=== PATIENT | male | born 1935 | race Caucasian/White ===

== ENCOUNTER → 2017-12-06 14:06 | Outpatient (CLI) | payer MEDICARE, BC, SELFPAY ==
--- NOTE | 2017-12-06 | DI.MRI.S_ITS ---
PROCEDURE: MR CERVICAL SPINE WO CON INDICATIONS: SPINAL STENOSIS LUMBAR REGION/POLYNEUROPATHY TECHNIQUE: Noncontrast sagittal T1 spin echo and T2 fast spin echo, sagittal STIR, foraminal oblique sagittal T2 fast spin echo, and axial gradient echo or T2 fast spin echo through the cervical spine. COMPARISON: None. FINDINGS: Image quality: Excellent. Alignment and Curvature: Trace retrolisthesis of C2 on C3 and C3 on C4. Trace anterolisthesis of C6 on C7. Bone Marrow: Diffuse endplate degenerative signal changes and spurring. Chronic osseous fusion of the C1 and C2 vertebral bodies Spinal Cord: Visualized spinal cord has normal size and signal. No cerebellar tonsillar herniation. Paraspinous Soft Tissues: No paravertebral masses. Prevertebral soft tissues are normal in thickness. C2-C3: Bilateral uncovertebral arthropathy and posterior intervening disc osteophyte complex which is mildly asymmetric, right greater than left. Bilateral facet arthropathy is present. Moderate central canal narrowing. Severe bilateral foraminal stenosis. C3-C4: Bilateral uncovertebral arthropathy and posterior intervening disc osteophyte complex, which is asymmetric, right greater than left. Moderate right-sided canal narrowing. Severe bilateral foraminal stenoses, left greater than right. C4-C5: Bilateral uncovertebral arthropathy and posterior intervening disc osteophyte complex, and bilateral facet arthropathy. Moderate central canal narrowing. Severe bilateral foraminal stenoses C5-C6: Bilateral uncovertebral arthropathy and posterior intervening disc osteophyte complex, and bilateral facet disease. Mild to moderate central canal narrowing. Severe bilateral foraminal stenoses. C6-C7: Bilateral uncovertebral arthropathy and posterior intervening disc osteophyte complex, and bilateral facet arthropathy. Minimal central canal narrowing. Mild bilateral foraminal narrowing, left greater than right. C7-T1: No definite canal or foraminal stenosis. IMPRESSION: Multilevel cervical degeneration with moderate canal stenosis at C2-C3, C3-C4 and C4-C5 as above. Diffuse bilateral foraminal stenoses, severe at multiple levels including C2-C3, C3-C4, C4-C5 and C5-C6. Dictated by: Vern Schumacher M.D. on 12/06/2017 at 15:16 Approved by: Vern Schumacher M.D. on 12/06/2017 at 15:33
== END ==
PROVIDERS: PCP Family Medicine; Visit Provider Neurological Surgery
DX: M50.31 Other cervical disc degeneration, high cervical region (principal); M48.02 Spinal stenosis, cervical region; M48.062 Spinal stenosis, lumbar region with neurogenic claudication; G62.9 Polyneuropathy, unspecified
CPT/HCPCS: 72141

== ENCOUNTER → 2018-03-28 08:38 | Outpatient (CLI) | payer MEDICARE, BC, SELFPAY ==
[2018-03-28 09:36] LABS: Alanine Aminotransferase 32 IU/L (21-72); Albumin 4.8 g/dL (3.5-5.0); Albumin Globulin Ratio 1.5 (1.0-2.8); Alkaline Phosphatase 90 U/L (38-126); Aspartate Aminotransferase 24 IU/L (17-59); BUN Creatinine Ratio 12.3 (6-22); Bilirubin Total 0.8 mg/dL (0.2-1.3); Blood Urea Nitrogen 16 mg/dL (9-20); Calcium 9.7 mg/dL (8.4-10.2); Carbon Dioxide 27 mmol/L (22-32); Chloride 104 mmol/L (98-107); Cholesterol 156 mg/dL (140-199); Estimated Glomerular Filt Rate 52.9 mL/min (>60); Globulin 3.3 g/dL (1.7-4.1); Glucose 115 mg/dL (80-110); HDL Cholesterol 27 mg/dL (40-60); HEMOLYSIS < 15 (0-50); LDL Cholesterol Calculated 91 mg/dL (<100); Potassium 4.3 mmol/L (3.4-5.1); Sodium 142 mmol/L (137-145); Total Protein 8.1 g/dL (6.3-8.2); Triglycerides 192 mg/dL (35-150)
[2018-03-28 10:00] LABS: Thyroid Stimulating Hormone 2.01 uIU/mL (0.47-4.68)
== END ==
PROVIDERS: PCP Family Medicine; Visit Provider Family Medicine
DX: E78.5 Hyperlipidemia, unspecified (principal); I10 Essential (primary) hypertension
CPT/HCPCS: 36415; 80053; 80061; 84443

== ENCOUNTER → 2018-04-11 12:02 | Outpatient (CLI) | payer MEDICARE, BC, SELFPAY ==
--- NOTE | 2018-04-11 | DI.US.S_ITS ---
PROCEDURE: US ARTERIAL DUPLEX LE BI INDICATIONS: PERIPHERAL ARTERY DISEASE CHEST DISCOMFORT TECHNIQUE: Color and pulse Doppler interrogation was performed of both lower extremity arterial systems, with image documentation. COMPARISON: None. FINDINGS: Right lower extremity: Common femoral artery: 111 cm/sec, with triphasic flow. Deep femoral artery: 55cm/sec, with biphasic flow. Proximal superficial femoral artery: 82 cm/sec, with triphasic flow. Mid superficial femoral artery: 85 cm/sec, with triphasic flow. Distal superficial femoral artery: 74 cm/sec, with triphasic flow. Popliteal artery: 101 cm/sec, with triphasic flow. Posterior tibial artery: 87 cm/sec, with biphasic flow. Anterior tibial artery/dorsalis pedis: 76 cm/sec, with biphasic flow. Riggs-scale imaging description: Minimal scattered plaque. Left lower extremity: Common femoral artery: 105 cm/sec, with triphasic flow. Deep femoral artery: 74 cm/sec, with biphasic flow. Proximal superficial femoral artery: 109 cm/sec, with triphasic flow. Mid superficial femoral artery: 74 cm/sec, with triphasic flow. Distal superficial femoral artery: 77 cm/sec, with triphasic flow. Popliteal artery: 116 cm/sec, with triphasic flow. Posterior tibial artery: 19 cm/sec, with biphasic flow. Anterior tibial artery/dorsalis pedis: 91 cm/sec, with biphasic flow. Riggs-scale imaging description: Minimal scattered plaque. IMPRESSION: Minimal scattered plaque and no hemodynamically significant peripheral arterial stenosis. Dictated by: Lb Mcarthur [facility] Interpreted: Evelio Davis MD on 04/11/2018 at 14:53 Approved by: Evelio Davis M.D. on 04/12/2018 at 4:57
--- NOTE | 2018-04-11 | DI.ECHO.S_ITS ---
[facility] +---------+ : : [address] : : : : [id number] : : : : Phone: [phone]+ Echocardiogram Report + + :Name: RONDA MILLER Study Date: 04/11/2018 Height: 68 in : :[facility] Weight: 224 lb : : Gender: Male BSA: 2.1 m2 : :: 1935 Age: 83 yrs BP: 138/72 mmHg: :Reason For Study: Chest pain : : Performed By: Dorys Leonardo : :Referring: RONAN HAYES : + + Interpretation Summary The left ventricle is mildly dilated. The ejection fraction is estimated to be 50-55%. There is mid inferior wall hypokinesis. There is apical inferior wall hypokinesis. The right ventricle is grossly normal size. The right ventricular systolic function is normal. There is mild to moderate tricuspid regurgitation. The right ventricular systolic pressure is estimated to be at least 34 mmHg based on an estimated right atrial pressure of 3 mm Hg. The ascending aorta is mildly enlarged. Procedure: A two-dimensional transthoracic echocardiogram with color flow and Doppler was performed. The study quality was technically adequate. There is no prior echocardiogram noted for this patient. The patient was in normal sinus rhythm during the exam. Left Ventricle: The left ventricle is mildly dilated. There is normal left ventricular wall thickness. There is no thrombus. The ejection fraction is estimated to be 50-55%. There is mid inferior wall hypokinesis. There is apical inferior wall hypokinesis. Diastolic parameters suggest a relaxation abnormality of the left ventricle, consistent with probable normal filling pressures. Right Ventricle: The right ventricle is grossly normal size. The right ventricular systolic function is normal. Atria: The left atrium is mildly dilated. The right atrium is mildly dilated. The interatrial septum is intact with no evidence for an atrial septal defect. Mitral Valve: There is mild mitral annular calcification. There is mild mitral regurgitation. Aortic Valve: The aortic valve is trileaflet. The aortic valve opens well. The aortic valve is slightly calcified. There is no aortic valve stenosis. There is trace aortic regurgitation. Tricuspid Valve: The tricuspid valve is normal. There is mild to moderate tricuspid regurgitation. The right ventricular systolic pressure is estimated to be at least 34 mmHg based on an estimated right atrial pressure of 3 mm Hg. Pulmonic Valve: The pulmonic valve leaflets are thin and pliable; valve motion is normal. There is trace pulmonic regurgitation. Great Vessels: The aortic root is borderline dilated. The ascending aorta is mildly enlarged. The aortic arch is normal in size. The IVC is of normal diameter and collapses greater than 50% with a sniff. This suggests a low right atrial pressure of 3 mm Hg. Pericardium/ Pleura There is no pericardial effusion. There is no pleural effusion. MMode/2D Measurements & Calculations LVIDd: 6.0 cm Ao root diam: 3.8 cm LVIDs: 4.1 cm Aortic Jxn: 2.9 cm FS: 31.5 % asc Aorta Diam: 3.8 cm IVSd: 1.0 cm Ao Arch Diam (Prox Trans): 2.4 cm LVPWd: 1.1 cm LV zhao. diameter/BSA (cm/m^2): 2.8 LV sys. diameter/BSA (cm/m^2): 1.9 LA dimension: 4.5 cm RA long axis: 5.3 cm LA A2 area: 25.2 cm2 RA area: 22.5 cm2 LA A4 area: 21.3 cm2 RA vol: 80.2 ml LA length (vol): 5.7 cm RA : 37.4 ml/m2 LA vol: 80.6 ml RVDd major: 5.8 cm LA vol index: 37.6 ml/m2 RVD1 (basal): 4.3 cm RVD2 (mid): 3.7 cm Doppler Measurements & Calculations Ao V2 max: 148.1 cm/sec MV E max kavon: 84.9 cm/sec Ao V2 mean: 99.5 cm/sec MV A max kavon: 115.1 cm/sec Ao max P.8 mmHg MV E/A: 0.74 Ao mean P.5 mmHg Med Peak E' Kavon: 5.8 cm/sec Ao V2 VTI: 35.3 cm E/E' med: 14.7 Lat Peak E' Kavon: 6.8 cm/sec E/E' lat: 12.4 E/e' average: 13.5 MV dec time: 0.34 sec MV P1/2t: 101.3 msec MR ERO: 0.16 cm2 TR max kavon: 277.5 cm/sec MV P1/2t max kavon: 85.2 cm/sec TR max P.8 mmHg MVA(P1/2t): 2.2 cm2 PA V2 max: 82.7 cm/sec PA V2 mean: 49.7 cm/sec PA mean P.2 mmHg PA Accel Time: 0.11 sec MR flow rate: 87.4 cm3/sec MR PISA radius: 0.60 cm Reading Physician:CESARIO
--- NOTE | 2018-04-14 09:30 | PM.TREADMILL ---
Cardiac Stress Test Report Referral & Results Date Patient Seen: 04/14/18 Requesting provider: Armen Diamond Indication: Coronary disease Rest ECG: Unremarkable Procedure Note: Today following both written and verbal informed consent the patient was exercised according to a standard Alfredo protocol patient went for a total of for minutes 1 sec achieving a maximum heart rate of 132 maximum systolic blood pressure of 160. This is approximately 7.0 METS. Exercise was terminated at this point because of targets her med and patient was unable to continue. Patient was also given Cardiolite through a previously started Hep-Lock IV by the landscape management technician approximately 1 minute prior to the cessation of exercise. No ST T segment changes. Occasional to rare PAC Functional aerobic impairment rated 20% on the sedentary scale Impression: No ECG evidence of ischemia Please see perfusion imaging report as well Please note: Actual ECG tracings can be found in the PACS system.
--- NOTE | 2018-04-14 14:47 | DI.NM.S_ITS ---
DATE OF SERVICE: 04/11/2018 PROCEDURE: Two-day nuclear treadmill stress test. REASON FOR STUDY: Chest pain. RADIOISOTOPES: 26.2 mCi of Technetium-99m used at rest and 24.6 mCi Technetium- 99m used as a stress dose. SYMPTOMS DURING THE STRESS TEST: Patient had no chest pain during the stress test. Study ended due to fatigue. ECG: Resting ECG shows sinus rhythm with left axis deviation and no ST-T changes. With treadmill stress, there were no diagnostic ECG changes to suggest ischemia. Rare PVCs noted during the stress test. PERFUSION IMAGES: There is a moderately severe fixed inferior wall defect that improves significantly with prone imaging, suggesting diaphragmatic attenuation artifact than true ischemia or infarct. However, old subendocardial infarction cannot be excluded comprehensively. GATED IMAGING: Patient's LVEF is 56% with normal wall motion and normal LV volumes. No TID noted visually, and the ratio is 0.86 (normal). CONCLUSIONS: 1. Probably normal study. 2. Probably normal perfusion images. There is a moderately intense fixed inferior wall defect that improves significantly with prone imaging, suggesting diaphragmatic attenuation. However, old subendocardial inferior myocardial infarction (VT) cannot be definitively excluded. 3. Normal left ventricular size, wall motion, and systolic function (LVEF post stress 56%). 4. No ECG evidence of ischemia. 5. No angina during the study. 6. Mildly reduced exercise tolerance (7.0 METs, CASTRO +20%). Appropriate blood pressure response with exercise. Target heart rate achieved. 7. Compared to the prior nuclear stress test done, 01/25/2017, no significant change based on the report. Diallo Herrera - NEAL/nellie/karly doc#: [id number]/job#: [id number] dd: 04/14/2018 12:50:00 dt: 04/14/2018 14:38:00 DICTATING MD/COPIES TO: Olive Hutchison MD COPIES MNE: NOREEN
== END ==
PROVIDERS: PCP Family Medicine; Visit Provider Internal Medicine Cardiovascular Disease
DX: R07.9 Chest pain, unspecified (principal); I08.1 Rheumatic disorders of both mitral and tricuspid valves; I77.810 Thoracic aortic ectasia; I73.9 Peripheral vascular disease, unspecified
CPT/HCPCS: 78452; 93016; 93017; 93018; 93306; 93925; A9502

== ENCOUNTER → 2018-11-17 12:37 | Outpatient (CLI) | payer MEDICARE, BC, SELFPAY ==
[2018-11-17 13:54] LABS: Magnesium 1.9 mg/dL (1.6-2.3)
== END ==
PROVIDERS: PCP Family Medicine; Visit Provider Internal Medicine Cardiovascular Disease
DX: I47.2 Ventricular tachycardia (principal)
CPT/HCPCS: 36415; 83735

== ENCOUNTER → 2019-03-30 10:06 | Outpatient (CLI) | payer MEDICARE, BC, SELFPAY ==
[2019-03-30 11:13] LABS: BUN Creatinine Ratio 19.1 (6-22); Blood Urea Nitrogen 21 mg/dL (9-20); Calcium 9.9 mg/dL (8.4-10.2); Carbon Dioxide 26 mmol/L (22-32); Chloride 105 mmol/L (98-107); Estimated Glomerular Filt Rate > 60.0 mL/min (>60); Glucose 103 mg/dL (80-110); HEMOLYSIS < 15 (0-50); Potassium 4.2 mmol/L (3.4-5.1); Sodium 143 mmol/L (137-145)
== END ==
PROVIDERS: PCP Family Medicine; Referring Provider Nurse Practitioner; Visit Provider Nurse Practitioner
DX: R07.89 Other chest pain (principal); I10 Essential (primary) hypertension; I44.4 Left anterior fascicular block
CPT/HCPCS: 36415; 80048

== ENCOUNTER 2019-03-30 11:41 | Emergency (ER) | payer MEDICARE, BC, SELFPAY ==
[2019-03-30 11:53] VITALS: BP 138/84; PULSE 71; RESP 16; TEMP 36.6; O2SAT 98; BMI 31.0
--- NOTE | 2019-03-30 11:55 | DI.RAD.S_ITS ---
PROCEDURE: XR CHEST 1V INDICATIONS: chest pain TECHNIQUE: One view of the chest was acquired. COMPARISON: [facility], CHEST 1 VIEW, 01/21/2012, 9:15. [facility], CHEST 2 VIEW, 01/18/2017, 14:25. FINDINGS: Surgical changes and devices: None. Lungs and pleura: Lungs are clear. No pleural effusions or pneumothorax. Mediastinum: The cardiac contours are within normal limits. The aorta demonstrates calcification and tortuosity. Bones and chest wall: No suspicious bony lesions. Overlying soft tissues appear unremarkable. IMPRESSION: Portable chest within normal limits. Dictated by: Bin Johnson M.D. on 03/30/2019 at 12:25 Approved by: Bin Johnson M.D. on 03/30/2019 at 12:26
[2019-03-30 12:05] LABS: Add Manual Diff / Slide Review NO; Basophils Absolute Auto 0 /uL (0-100); Basophils Percent Auto 0.5 % (0-2); Eosinophils Absolute Auto 100 /uL (0-450); Eosinophils Percent Auto 1.2 % (2-4); Hematocrit 37.9 % (41-53); Hemoglobin 13.1 g/dL (13.5-17.5); Lymphocytes Absolute Auto 1100 /uL (1100-4500); Lymphocytes Percent Auto 16.6 % (25-40); Mean Corpuscular HGB Conc 34.6 % (30-36); Mean Corpuscular Hemoglobin 30.7 PG (26-34); Mean Corpuscular Volume 88.9 fL (80-100); Monocytes Absolute Auto 600 /uL (0-900); Monocytes Percent Auto 9.5 % (3-14); Neutrophils Absolute Auto 4600 /uL (1500-7000); Neutrophils Percent Auto 72.2 % (50-75); Platelet Count 178 X10^3/uL (150-400); Red Blood Cell Count 4.27 X10^6/uL (4.5-5.9); Red Cell Distribution Width 14.9 % (11.6-14.8); White Blood Cell Count 6.4 X10^3/uL (4.5-11.0)
--- NOTE | 2019-03-30 12:10 | ED_ITS ---
HPI - Chest Pain <Savannah DO Divya - Last Filed: 03/31/19 08:40> General Chief Complaint: Chest Pain Stated Complaint: HAVING HEART PAIN Time Seen by Provider: 03/30/19 11:51 Source: patient Mode of arrival: Ambulatory Limitations: no limitations History of Present Illness HPI narrative: Patient is a 84-year-old male with history of Prinzmetal angina, presenting with chest pain. He is typically able to control his chest discomfort nitroglycerin. He was actually seen evaluated by his redevelopment specialist today Dr. Diamond, who has scheduled him for a CT calcium channel scoring tomorrow in the telling him. He left the redevelopment specialist office and noticed that his chest pain was getting a little bit worse he took nitroglycerin at home and it was unrelieved comes to the ED for further evaluation. He is currently chest pain-free and took aspirin 81 mg this morning. Related Data Home Medications Medication Instructions Recorded Confirmed omeprazole 40 mg PO DAILY #0 06/24/11 03/30/19 aspirin 81 mg PO DAILY #0 01/21/12 03/30/19 multivitamin 1 tab PO DAILY #0 01/21/12 03/30/19 Benefiber Powder 2 tsp PO DAILY 03/30/19 03/30/19 [place] 500 mg PO DAILY 03/30/19 03/30/19 Chondroitin Sulfate 1,200 mg PO DAILY 03/30/19 03/30/19 Glucosamine 1,500 mg PO DAILY 03/30/19 03/30/19 [place] 3 Fatty Acids-Vitamin E 1,000 mg PO DAILY 03/30/19 03/30/19 Vitamin B-12 1 tab PO DAILY 03/30/19 03/30/19 cholecalciferol (vitamin D3) 2,000 unit PO DAILY 03/30/19 03/30/19 [Vitamin D3] coenzyme Q10 [Co Q-10] 300 mg PO DAILY 03/30/19 03/30/19 diltiazem HCl 120 mg PO BEDTIME 03/30/19 03/30/19 nitroglycerin 0.4 mg TOPICAL DAILY 03/30/19 03/30/19 pravastatin 40 mg PO BEDTIME 03/30/19 03/30/19 turmeric 1,000 mg PO DAILY 03/30/19 03/30/19 Allergies Allergy/AdvReac Type Severity Reaction Status Date / Time simethicone Allergy Unknown Verified 03/30/19 12:42 oxycodone [OXYCODONE] AdvReac Mild COMITING, Verified 03/30/19 11:53 HALLUCINATIONS Review of Systems <Savannah Stokes DO - Last Filed: 03/31/19 08:40> Review of Systems Narrative: GENERAL: Denies chills, fatigue, malaise, fever, sweats, travel HEENT: Denies sinus pain, ear pain, sore throat, difficulty swallowing, neck pain RESPIRATORY: Denies dyspnea, cough, wheezing, hemoptysis, sputum. CARDIOVASCULAR: See HPI GASTROINTESTINAL: Denies nausea, vomiting, abdominal pain, diarrhea, co nstipation, melena. : Denies dysuria, frequency, incontinence, hematuria, urinary retention, flank pain. MUSCULOSKELETAL: Denies weakness, joint pain, or bony pain SKIN: No rash, no erythema, no pruritus NEUROLOGIC: Denies weakness, dizziness, headache, numbness, change in speech, confusion PSYCHIATRIC: No concerning psychosocial issues. 12 point review of systems is negative except for those stated above and HPI Patient History <Savannah Stokes DO - Last Filed: 03/31/19 08:40> Medical History Prinzmetal angina (Acute) Surgical History History of carpal tunnel repair History of cataract removal with insertion of prosthetic lens History of knee replacement History of knee replacement Status post cholecystectomy Family History Mother Heart disease Exam <Savannah Stokes DO - Last Filed: 03/31/19 08:40> Initial Vital Signs Initial Vital Signs: Vital Signs Temperature 97.8 F 03/30/19 11:53 Pulse Rate 71 03/30/19 11:53 Respiratory Rate 16 03/30/19 11:53 Blood Pressure 138/84 03/30/19 11:53 Pulse Oximetry 98 03/30/19 11:53 GENERAL: Alert well-appearing elderly male and in no acute distress. HEENT: Head atraumatic,EOMI, pupils reactive, face symmetric, moist mucous membranes CARDIOVASCULAR: Regular rate and rhythm without murmurs, rubs or gallops. RESPIRATORY: Breath sounds equal bilaterally, no wheezes rales or rhonchi. ABDOMEN: Soft, nontender. Normoactive bowel sounds all 4 quadrants. No guarding or rebound. EXTREMITIES: Normal range of motion, no clubbing or edema. Neurovascularly intact NEUROLOGICAL: Alert and oriented x4.Normal gait and speech. SKIN: Warm, dry, no laceration, no petechiae, no rashes or lesions. <Tess Cedeno DO - Last Filed: 03/30/19 21:04> Initial Vital Signs Initial Vital Signs: Vital Signs Temperature 97.8 F 03/30/19 11:53 Pulse Rate 71 03/30/19 11:53 Respiratory Rate 16 03/30/19 11:53 Blood Pressure 138/84 03/30/19 11:53 Pulse Oximetry 98 03/30/19 11:53 Course <Savannah Stokes DO - Last Filed: 03/31/19 08:40> Orders Ordered: Discontinued Medications Aspirin (Aspirin Chew) 324 mg PO NOW ONE Stop: 03/30/19 12:12 Last Admin: 03/30/19 12:25 Dose: 324 mg Documented by: KAREN Consultations Consultation #1: Dr. Diamond, cardiology updated on patients symptoms, states that if troponin and work up is negative can be discharged home with out patient testing tomorrow as scheduled. Time: 13:18 Vital Signs Vital signs: Vital Signs - 8 hr 03/30/19 13:30 03/30/19 14:25 03/30/19 15:30 Pulse Rate 57 L 56 L 61 Respiratory Rate 18 13 22 Blood Pressure Blood Pressure [Right Arm] 136/72 119/69 137/76 Pulse Oximetry 96 97 98 03/30/19 15:57 Pulse Rate 65 Respiratory Rate 22 Blood Pressure 137/76 Blood Pressure [Right Arm] Pulse Oximetry 98 <Tess Cedeno DO - Last Filed: 03/30/19 21:04> Orders Ordered: Discontinued Medications Aspirin (Aspirin Chew) 324 mg PO NOW ONE Stop: 03/30/19 12:12 Last Admin: 03/30/19 12:25 Dose: 324 mg Documented by: KAREN Vital Signs Vital signs: Vital Signs - 8 hr 03/30/19 13:30 03/30/19 14:25 03/30/19 15:30 Pulse Rate 57 L 56 L 61 Respiratory Rate 18 13 22 Blood Pressure Blood Pressure [Right Arm] 136/72 119/69 137/76 Pulse Oximetry 96 97 98 03/30/19 15:57 Pulse Rate 65 Respiratory Rate 22 Blood Pressure 137/76 Blood Pressure [Right Arm] Pulse Oximetry 98 MDM - Chest Pain <Savannah DO Divya - Last Filed: 03/31/19 08:40> Lab Data Attestation: I reviewed the patient's lab results. Result diagrams: 03/30/19 11:52 03/30/19 11:52 Labs: Lab Results 03/30/19 03/30/19 03/30/19 Range/Units 11:52 11:52 11:52 WBC 6.4 (4.5-11.0) X10^3/uL RBC 4.27 L (4.5-5.9) X10^6/uL Hgb 13.1 L (13.5-17.5) g/dL Hct 37.9 L (41-53) % MCV 88.9 (80-100) fL MCH 30.7 (26-34) PG MCHC 34.6 (30-36) % RDW 14.9 H (11.6-14.8) % Plt Count 178 (150-400) X10^3/uL Neut % (Auto) 72.2 (50-75) % Lymph % (Auto) 16.6 L (25-40) % [place] % (Auto) 9.5 (3-14) % Eos % (Auto) 1.2 L (2-4) % Baso % (Auto) 0.5 (0-2) % Neut # (Auto) 4600 (8976-1350) /uL Lymph # (Auto) 1100 (2460-4764) /uL [place] # (Auto) 600 (0-900) /uL Eos # (Auto) 100 (0-450) /uL Baso # (Auto) 0 (0-100) /uL PT 11.4 (10.1-12.7) SECONDS INR 1.0 (0.9-1.3) APTT 31 (26.4-36.2) SECONDS Sodium 141 (137-145) mmol/L Potassium 3.9 (3.4-5.1) mmol/L Chloride 107 (98-107) mmol/L Carbon Dioxide 24 (22-32) mmol/L BUN 20 (9-20) mg/dL Creatinine 1.10 (0.66-1.25) mg/dL Estimated GFR > 60.0 (>60) mL/min BUN/Creatinine Ratio 18.2 (6-22) Glucose 106 (80-110) mg/dL Calcium 9.7 (8.4-10.2) mg/dL Total Bilirubin 0.5 (0.2-1.3) mg/dL AST 26 (17-59) IU/L ALT 17 (<50) IU/L Alkaline Phosphatase 100 (38-126) U/L Total Creatine Kinase 127 (55-170) U/L CK-MB (CK-2) 1.77 (<2.37) ng/mL CK-MB (CK-2) Rel Index 1.4 L (1.5-5.0) % Troponin I < 0.012 (0.01-0.034) ng/mL Total Protein 7.7 (6.3-8.2) g/dL Albumin 4.6 (3.5-5.0) g/dL Globulin 3.1 (1.7-4.1) g/dL Albumin/Globulin Ratio 1.5 (1.0-2.8) Lipase 47 (23-300) U/L 03/30/19 Range/Units 14:47 WBC (4.5-11.0) X10^3/uL RBC (4.5-5.9) X10^6/uL Hgb (13.5-17.5) g/dL Hct (41-53) % MCV (80-100) fL MCH (26-34) PG MCHC (30-36) % RDW (11.6-14.8) % Plt Count (150-400) X10^3/uL Neut % (Auto) (50-75) % Lymph % (Auto) (25-40) % [place] % (Auto) (3-14) % Eos % (Auto) (2-4) % Baso % (Auto) (0-2) % Neut # (Auto) (7830-0923) /uL Lymph # (Auto) (4332-1594) /uL [place] # (Auto) (0-900) /uL Eos # (Auto) (0-450) /uL Baso # (Auto) (0-100) /uL PT (10.1-12.7) SECONDS INR (0.9-1.3) APTT (26.4-36.2) SECONDS Sodium (137-145) mmol/L Potassium (3.4-5.1) mmol/L Chloride (98-107) mmol/L Carbon Dioxide (22-32) mmol/L BUN (9-20) mg/dL Creatinine (0.66-1.25) mg/dL Estimated GFR (>60) mL/min BUN/Creatinine Ratio (6-22) Glucose (80-110) mg/dL Calcium (8.4-10.2) mg/dL Total Bilirubin (0.2-1.3) mg/dL AST (17-59) IU/L ALT (<50) IU/L Alkaline Phosphatase (38-126) U/L Total Creatine Kinase (55-170) U/L CK-MB (CK-2) (<2.37) ng/mL CK-MB (CK-2) Rel Index (1.5-5.0) % Troponin I < 0.012 (0.01-0.034) ng/mL Total Protein (6.3-8.2) g/dL Albumin (3.5-5.0) g/dL Globulin (1.7-4.1) g/dL Albumin/Globulin Ratio (1.0-2.8) Lipase (23-300) U/L Imaging Data Chest x-ray: Radiologist's Impression: PROCEDURE: XR CHEST 1V INDICATIONS: chest pain TECHNIQUE: One view of the chest was acquired. COMPARISON: [facility], CHEST 1 VIEW, 01/21/2012, 9:15. [facility], CHEST 2 VIEW, 01/18/2017, 14:25. FINDINGS: Surgical changes and devices: None. Lungs and pleura: Lungs are clear. No pleural effusions or pneumothorax. Mediastinum: The cardiac contours are within normal limits. The aorta demonstrates calcification and tortuosity. Bones and chest wall: No suspicious bony lesions. Overlying soft tissues appear unremarkable. IMPRESSION: Portable chest within normal limits. Dictated by: Bin Johnson M.D. on 03/30/2019 at 12:25 <Tess Cedeno DO - Last Filed: 03/30/19 21:04> Lab Data Attestation: I reviewed the patient's lab results. Labs: Lab Results 03/30/19 03/30/19 03/30/19 Range/Units 11:52 11:52 11:52 WBC 6.4 (4.5-11.0) X10^3/uL RBC 4.27 L (4.5-5.9) X10^6/uL Hgb 13.1 L (13.5-17.5) g/dL Hct 37.9 L (41-53) % MCV 88.9 (80-100) fL MCH 30.7 (26-34) PG MCHC 34.6 (30-36) % RDW 14.9 H (11.6-14.8) % Plt Count 178 (150-400) X10^3/uL Neut % (Auto) 72.2 (50-75) % Lymph % (Auto) 16.6 L (25-40) % [place] % (Auto) 9.5 (3-14) % Eos % (Auto) 1.2 L (2-4) % Baso % (Auto) 0.5 (0-2) % Neut # (Auto) 4600 (8616-3389) /uL Lymph # (Auto) 1100 (3921-3528) /uL [place] # (Auto) 600 (0-900) /uL Eos # (Auto) 100 (0-450) /uL Baso # (Auto) 0 (0-100) /uL PT 11.4 (10.1-12.7) SECONDS INR 1.0 (0.9-1.3) APTT 31 (26.4-36.2) SECONDS Sodium 141 (137-145) mmol/L Potassium 3.9 (3.4-5.1) mmol/L Chloride 107 (98-107) mmol/L Carbon Dioxide 24 (22-32) mmol/L BUN 20 (9-20) mg/dL Creatinine 1.10 (0.66-1.25) mg/dL Estimated GFR > 60.0 (>60) mL/min BUN/Creatinine Ratio 18.2 (6-22) Glucose 106 (80-110) mg/dL Calcium 9.7 (8.4-10.2) mg/dL Total Bilirubin 0.5 (0.2-1.3) mg/dL AST 26 (17-59) IU/L ALT 17 (<50) IU/L Alkaline Phosphatase 100 (38-126) U/L Total Creatine Kinase 127 (55-170) U/L CK-MB (CK-2) 1.77 (<2.37) ng/mL CK-MB (CK-2) Rel Index 1.4 L (1.5-5.0) % Troponin I < 0.012 (0.01-0.034) ng/mL Total Protein 7.7 (6.3-8.2) g/dL Albumin 4.6 (3.5-5.0) g/dL Globulin 3.1 (1.7-4.1) g/dL Albumin/Globulin Ratio 1.5 (1.0-2.8) Lipase 47 (23-300) U/L 03/30/19 Range/Units 14:47 WBC (4.5-11.0) X10^3/uL RBC (4.5-5.9) X10^6/uL Hgb (13.5-17.5) g/dL Hct (41-53) % MCV (80-100) fL MCH (26-34) PG MCHC (30-36) % RDW (11.6-14.8) % Plt Count (150-400) X10^3/uL Neut % (Auto) (50-75) % Lymph % (Auto) (25-40) % [place] % (Auto) (3-14) % Eos % (Auto) (2-4) % Baso % (Auto) (0-2) % Neut # (Auto) (9459-6569) /uL Lymph # (Auto) (5576-3543) /uL [place] # (Auto) (0-900) /uL Eos # (Auto) (0-450) /uL Baso # (Auto) (0-100) /uL PT (10.1-12.7) SECONDS INR (0.9-1.3) APTT (26.4-36.2) SECONDS Sodium (137-145) mmol/L Potassium (3.4-5.1) mmol/L Chloride (98-107) mmol/L Carbon Dioxide (22-32) mmol/L BUN (9-20) mg/dL Creatinine (0.66-1.25) mg/dL Estimated GFR (>60) mL/min BUN/Creatinine Ratio (6-22) Glucose (80-110) mg/dL Calcium (8.4-10.2) mg/dL Total Bilirubin (0.2-1.3) mg/dL AST (17-59) IU/L ALT (<50) IU/L Alkaline Phosphatase (38-126) U/L Total Creatine Kinase (55-170) U/L CK-MB (CK-2) (<2.37) ng/mL CK-MB (CK-2) Rel Index (1.5-5.0) % Troponin I < 0.012 (0.01-0.034) ng/mL Total Protein (6.3-8.2) g/dL Albumin (3.5-5.0) g/dL Globulin (1.7-4.1) g/dL Albumin/Globulin Ratio (1.0-2.8) Lipase (23-300) U/L Imaging Data Chest x-ray: Radiologist's Impression: [address] [address] XRay Report Signed Patient: Diallo Herrera FMR#: [id number] : 6Acct:[id number] Age/Sex: 84 / MDate of Service: 03/30/19 Loc: ED Accession Number: [id number] Procedure: XR chest 1V Ordering Provider: Savannah Stokes D.O. PROCEDURE: XR CHEST 1V INDICATIONS: chest pain TECHNIQUE: One view of the chest was acquired. COMPARISON: [facility], CHEST 1 VIEW, 01/21/2012, 9:15. [facility], CHEST 2 VIEW, 01/18/2017, 14:25. FINDINGS: Surgical changes and devices: None. Lungs and pleura: Lungs are clear. No pleural effusions or pneumothorax. Mediastinum: The cardiac contours are within normal limits. The aorta demonstrates calcification and tortuosity. Bones and chest wall: No suspicious bony lesions. Overlying soft tissues appear unremarkable. IMPRESSION: Portable chest within normal limits. Dictated by: Bin Johnson M.D. on 03/30/2019 at 12:25 Approved by: Bin Johnson M.D. on 03/30/2019 at 12:26 ECG Data Attestation: I personally reviewed and interpreted this ECG as follows: Prior ECG tracings: available for review Interpretation: EKG 1. Sinus rhythm rate of 69 P are 171 QRS of 130 and QTC 414. Left anterior fascicular block. No ST elevation depression noted. EKG 2. Shows sinus rhythm with a rate of 65 P are 183 QRS of 133 QTC of 447. No ST elevation depression appreciated. MDM Narrative Medical decision making narrative: Patient was signed out to myself by Dr. Stokes, patient came in with episode of chest pain today. Patient has a history of Prinzmetal angina. He was evaluated by his redevelopment specialist today who scheduled him for CT calcium channel scoring tomorrow in [place]. He felt like his chest pain was getting a little bit worse, he took his nitroglycerin at home and it was unrelieved we came for evaluation was chest pain-free upon arrival to ED. He took his aspirin 81 mg this morning and received additional here in the ER. EKG do not show new changes between 2. Patient troponin x2 is negative. He does have high risk factors his case was discussed with Dr. Mejia felt if he was negative with troponin x2 and EKG without changes and chest pain-free would be appropriate for him to follow up tomorrow outpatient for his CT imaging. Patient was seen by myself HPI and exam was reviewed by myself as well as imaging, EKG and lab work. Patient and I discussed Dr. Diamond's recommendations today about wearing his nitropatch for a longer period. He is scheduled for CT calcium scoring at 4:30pm tomorrow, we did discuss that he is somewhat high risk and discussed observation but he and his prefer to return home, given strict return precautions. Discharge Plan Departure Patient Disposition: Home Clinical Impression: Chest pain, Prinzmetal angina Discharge Date/Time: 03/30/19 15:58 Instructions: DI for Chest Pain Activity Restrictions/Additional Instructions: Follow up tomorrow for your calcium channel scoring CT. Continue your home medications as prescribed, including your nitroglycerin. Follow Dr. Diamond's instructions about using your nitropatch. You may take a full dose aspirin daily or 324mg Return to the ER if you have fevers greater 100.4, recurrent chest pain or pressure particularly on relieved by nitroglycerin, new shortness of breath, lightheadedness or passing out, persistent nausea vomiting, sweats, new swelling in her extremities or any other new or concerning symptoms. Prescriptions: No Action omeprazole 40 MG capsule,delayed release(DR/EC) 40 mg PO DAILY Qty: 0 RF: 0 multivitamin Tablet 1 tab PO DAILY Qty: 0 RF: 0 aspirin 81 MG tablet,delayed release (DR/EC) 81 mg PO DAILY Qty: 0 RF: 0 pravastatin 40 mg tablet 40 mg PO BEDTIME RF: 0 nitroglycerin 0.4 mg/hr patch 24 hour 0.4 mg topical DAILY RF: 0 diltiazem HCl 120 mg capsule,extended release 24hr 120 mg PO BEDTIME RF: 0 coenzyme Q10 [Co Q-10] 100 mg Capsule 300 mg PO DAILY RF: 0 cholecalciferol (vitamin D3) [Vitamin D3] 2,000 unit Tablet 2,000 unit PO DAILY RF: 0 Benefiber Powder 2 tsp PO DAILY RF: 0 [place] 500 MG 500 mg PO DAILY RF: 0 Chondroitin Sulfate 1,200 mg 1,200 mg PO DAILY RF: 0 Glucosamine 1,500 mg PO DAILY RF: 0 [place] 3 Fatty Acids-Vitamin E 1,000 mg 1,000 mg PO DAILY RF: 0 Vitamin B-12 1 tab PO DAILY RF: 0 turmeric 1,000 MG 1,000 mg PO DAILY RF: 0 Referrals: Dionisio Anderson MD [Primary Care Provider] -
[2019-03-30 12:14] LABS: Prothrombin Time 11.4 SECONDS (10.1-12.7)
[2019-03-30 12:17] LABS: PTT Partial Thromboplastin Tim 31 SECONDS (26.4-36.2)
[2019-03-30 12:19] LABS: Alanine Aminotransferase 17 IU/L (<50); Albumin 4.6 g/dL (3.5-5.0); Albumin Globulin Ratio 1.5 (1.0-2.8); Alkaline Phosphatase 100 U/L (38-126); Aspartate Aminotransferase 26 IU/L (17-59); BUN Creatinine Ratio 18.2 (6-22); Bilirubin Total 0.5 mg/dL (0.2-1.3); Blood Urea Nitrogen 20 mg/dL (9-20); Calcium 9.7 mg/dL (8.4-10.2); Carbon Dioxide 24 mmol/L (22-32); Chloride 107 mmol/L (98-107); Creatine Kinase 127 U/L (55-170); Estimated Glomerular Filt Rate > 60.0 mL/min (>60); Globulin 3.1 g/dL (1.7-4.1); Glucose 106 mg/dL (80-110); HEMOLYSIS < 15 (0-50); Lipase 47 U/L (23-300); Potassium 3.9 mmol/L (3.4-5.1); Sodium 141 mmol/L (137-145); Total Protein 7.7 g/dL (6.3-8.2)
[2019-03-30] MEDS: ASPIRIN 81 MG CHEW TAB 324 MG PO (12:25)
[2019-03-30 12:31] LABS: Troponin I < 0.012 ng/mL (0.01-0.034)
[2019-03-30 12:35] LABS: CKMB % Relative Index 1.4 % (1.5-5.0); Creatine Kinase MB 1.77 ng/mL (<2.37)
[2019-03-30 13:30] VITALS: BP 136/72; PULSE 57; RESP 18; O2SAT 96
[2019-03-30 14:25] VITALS: BP 119/69; PULSE 56; RESP 13; O2SAT 97
[2019-03-30 15:18] LABS: Troponin I < 0.012 ng/mL (0.01-0.034)
[2019-03-30 15:30] VITALS: BP 137/76; PULSE 61; RESP 22; O2SAT 98
[2019-03-30 15:57] VITALS: BP 137/76; PULSE 65; RESP 22; O2SAT 98
== END 2019-03-30 15:58 | disposition home or self-care (01) ==
PROVIDERS: Emergency Medicine; Emergency Provider Emergency Medicine; PCP Family Medicine
DX: I20.1 Angina pectoris with documented spasm (principal); I10 Essential (primary) hypertension; R07.89 Other chest pain; I44.4 Left anterior fascicular block; Z79.82 Long term (current) use of aspirin
CPT/HCPCS: 36415; 71045; 80048; 80053; 82550; 82553; 83690; 84484; 85025; 85610; 85730; 93005; 99284; 99285

== ENCOUNTER → 2019-04-13 10:32 | Outpatient (CLI) | payer MEDICARE, BC, SELFPAY ==
--- NOTE | 2019-04-13 10:40 | DI.CT.S_ITS ---
PROCEDURE: CT CHEST WO CON INDICATIONS: 84 year-old man with chest pain. TECHNIQUE: Noncontrast 5 mm thick sections acquired from the pulmonary apices to the posterior costophrenic angles. 1 mm lung window, 5 mm thick coronal and sagittal and 7 mm axial MIP reformats were then acquired. For radiation dose reduction, the following was used: automated exposure control, adjustment of mA and/or kV according to patient size. COMPARISON: [facility], CR, XR CHEST 1V, 03/30/2019, 12:02. FINDINGS: Image quality: Excellent. Lungs and pleura: No acute air space opacities. There is a 4 mm peripheral subpleural nodule in the left upper lobe (series 3 image 111). A 3 mm groundglass nodule is present in the left upper lobe more inferiorly (series 3 image 147). No pleural effusions or pneumothorax. Central and peripheral airways are patent and normal in caliber. Mediastinum: Heart size is normal. No pericardial effusion. Severe coronary artery calcifications consistent with atherosclerosis. No mediastinal adenopathy by size criteria. Thoracic aorta and central pulmonary arteries are normal in size. Esophagus is normal in caliber. Small hiatal hernia. Bones and chest wall: No suspicious bony lesions. No vertebral body compression fractures. No axillary or supraclavicular adenopathy by size criteria. Thyroid gland is normal. Abdomen: There is a 1 cm low-density nodule in the anterior liver, most likely a hepatic cyst. IMPRESSION: 1. Severe coronary artery atherosclerosis. 2. A couple of subcentimeter left upper lobe lung nodules. Please see enclosed followup recommendation. 3. Small hiatal hernia. Fleischner Society criteria for SOLID lung nodule followup. Nodule size (mm)Low-risk patientHigh-risk patient?4No follow-up neededFollow-up at 12 mo; if no change, no further follow-up>9-7[place]nta-pe CT at 12 mo; if no change, no further follow-up needed.Initial follow-up CT at 6-12 mo, then 18-24 mo if no change. >6-8Initial follow-up CT at 6-12 mo, then 18-24 mo if no change. Initial follow-up CT at 3-6 mo, then 9-12 mo and 24 mo if no change. >8Follow-up CT at 3, 9, 24 mo. Or PET and/or biopsy.Same as for low-risk pts. Fleischner Society criteria for SUB-SOLID lung nodule followup. Solitary pure ground-glass nodules5 mm or lessNo followup needed. >5 mm3 mo follow-up CT to confirm persistence. Then annual CT for 3 years. Part-solid nodules3 mo follow-up CT to confirm persistence. If persistent with solid component <5 mm, annual CT for at least 3 years. If solid component is 5 mm or more, biopsy or surgical resection. Consider PET-CT for lesions > 10 mm. Multiple sub-solid nodulesPure ground glass nodules [address] at 2 and 4 years. Pure ground glass nodules >5 mm without dominant lesion. [address] to confirm persistence, then annual followup CT for at least 3 years. Dominant nodule(s) with part-solid or solid component. [address] to confirm persistence. If persistent, consider biopsy or surgical resection, alicia if lesions have >5 mm solid component. Dictated by: Linsey Hoffman M.D. on 04/13/2019 at 12:14 Approved by: Linsey Hoffman M.D. on 04/13/2019 at 15:38
== END ==
PROVIDERS: PCP Family Medicine; Referring Provider Family Medicine; Visit Provider Family Medicine
DX: R07.89 Other chest pain (principal); R91.8 Other nonspecific abnormal finding of lung field; I25.10 Atherosclerotic heart disease of native coronary artery without angina pectoris; K44.9 Diaphragmatic hernia without obstruction or gangrene
CPT/HCPCS: 71250

== ENCOUNTER → 2019-07-06 11:25 | Outpatient (ROUT) | payer MEDICARE, BC, SELFPAY ==
[2019-07-06 12:08] LABS: Prothrombin Time 11.7 SECONDS (10.1-12.7)
== END ==
PROVIDERS: PCP Family Medicine; Visit Provider Family Medicine
DX: R31.0 Gross hematuria (principal)
CPT/HCPCS: 85610

== ENCOUNTER 2019-07-08 12:10 | Emergency (ER) | payer MEDICARE, BC, SELFPAY ==
[2019-07-08 12:51] VITALS: BP 156/70; PULSE 76; RESP 13; TEMP 36.5; O2SAT 98
--- NOTE | 2019-07-08 14:00 | ED.MALEGU ---
HPI - Male Genitourinary General Chief complaint: Urogenital-Male Stated complaint: possible hernia Time Seen by Provider: 07/08/19 13:03 Source: patient and family () Mode of arrival: Ambulatory Limitations: no limitations History of Present Illness HPI Narrative: This is an 84-year-old male who comes to the emergency department complaint of right groin pain. Patient states that he has been having groin pain but also back pain. Patient states that he did note that he was having some flank and then groin pain and was having hematuria. He thought that he had a kidney stone but it has continued. He has not noticed any lumps or swelling describes pain more in the crease. Patient did notice some bruising on his lower back. He states that he was bent over last week and thinks that that might have been the cause they described as very small spots. Patient has also had a little radiation down his right leg. 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 He takes a statin as well as omeprazole daily, he uses Imdur, diltiazem and daily aspirin. Patient denies any fevers, no nausea or vomiting. No chest pain or shortness of breath. He denies any abdominal pain. He denies any pain in the testicular region and states it is more in the groin crease area. As well as in the back. He states movement does seem to make things worse if he lays on his right side. Related Data Home Medications Medication Instructions Recorded Confirmed omeprazole 40 mg PO DAILY #0 06/24/11 03/30/19 aspirin 81 mg PO DAILY #0 01/21/12 03/30/19 multivitamin 1 tab PO DAILY #0 01/21/12 03/30/19 Benefiber Powder 2 tsp PO DAILY 03/30/19 03/30/19 Boswellia 500 mg PO DAILY 03/30/19 03/30/19 Chondroitin Sulfate 1,200 mg PO DAILY 03/30/19 03/30/19 Glucosamine 1,500 mg PO DAILY 03/30/19 03/30/19 [place] 3 Fatty Acids-Vitamin E 1,000 mg PO DAILY 03/30/19 03/30/19 Vitamin B-12 1 tab PO DAILY 03/30/19 03/30/19 cholecalciferol (vitamin D3) 2,000 unit PO DAILY 03/30/19 03/30/19 [Vitamin D3] coenzyme Q10 [Co Q-10] 300 mg PO DAILY 03/30/19 03/30/19 diltiazem HCl 120 mg PO BEDTIME 03/30/19 03/30/19 nitroglycerin 0.4 mg TOPICAL DAILY 03/30/19 03/30/19 pravastatin 40 mg PO BEDTIME 03/30/19 03/30/19 turmeric 1,000 mg PO DAILY 03/30/19 03/30/19 Previous Rx's Medication Instructions Recorded tramadol [Ultram] 50 mg PO Q6H PRN #10 tab 07/08/19 Allergies Allergy/AdvReac Type Severity Reaction Status Date / Time simethicone Allergy Unknown Verified 03/30/19 12:42 oxycodone [OXYCODONE] AdvReac Mild COMITING, Verified 03/30/19 11:53 HALLUCINATIONS Review of Systems Review of Systems ROS Unobtainable: All systems reviewed & are unremarkable except as noted in HPI and below Patient History Medical History (Updated 07/08/19 @ 16:12 by Tess Cedeno DO) Prinzmetal angina (Acute) Testicular cancer (Acute) Surgical History History of carpal tunnel repair History of cataract removal with insertion of prosthetic lens History of knee replacement History of knee replacement Status post cholecystectomy Substance Use Type: does not use Exam Narrative Exam Narrative: GENERAL: Alert and oriented x three, well-nourished elderly male in mild distress. HEENT: Head normocephalic, atraumatic, EOMI, pupils reactive, face symmetric, moist mucous membranes NECK: Supple, full range of motion CARDIOVASCULAR: Regular rate and rhythm without murmurs, rubs or gallops. RESPIRATORY: Breath sounds equal bilaterally, no wheezes rales or rhonchi. ABDOMEN: Soft, nontender. Normoactive bowel sounds all 4 quadrants. No guarding or rebound, rigidity, no mass, no swelling in the groin or abdomen noted. : No CVA tenderness, Male: normal external examination, no penile discharge or lesions, testicle is non-tender, cremasteric reflex intact, no inguinal hernias noted. EXTREMITIES: Normal range of motion, no clubbing or edema. Neurovascularly intact NEUROLOGICAL: Cranial nerves II through XII grossly intact. Moving all extremities SKIN: Warm, dry, no petechiae, no rashes or lesions. Initial Vital Signs Initial Vital Signs: Vital Signs Temperature 97.7 F 07/08/19 12:51 Pulse Rate 76 07/08/19 12:51 Respiratory Rate 13 07/08/19 12:51 Blood Pressure 156/70 H 07/08/19 12:51 Pulse Oximetry 98 07/08/19 12:51 Course Orders Ordered: ED Orders 07/08/19 12:52 Urinalysis and Microscopic Stat Urine Culture Stat 07/08/19 13:06 Complete Blood Count AUTO DIFF Stat Comprehensive Metabolic Panel Stat Lipase Stat 07/08/19 14:27 CT abdomen pelvis w con Stat Vital Signs Vital signs: Vital Signs - 8 hr 07/08/19 12:51 07/08/19 14:35 07/08/19 15:59 Temperature 97.7 F 97.3 F L Pulse Rate 76 64 58 L Respiratory Rate 13 16 18 Blood Pressure 156/70 H Blood Pressure [Left Arm] 123/57 L 133/60 Pulse Oximetry 98 97 97 07/08/19 16:48 07/08/19 16:57 Temperature 97.5 F L Pulse Rate 74 65 Respiratory Rate 16 14 Blood Pressure 137/66 Blood Pressure [Left Arm] 115/60 Pulse Oximetry 95 99 MDM - Male Genitourinary Lab Data Attestation: I reviewed the patient's lab results. Result diagrams: 07/08/19 13:06 07/08/19 13:06 Labs: Lab Results 07/08/19 07/08/19 07/08/19 Range/Units 12:52 13:06 13:06 WBC 6.7 (4.5-11.0) X10^3/uL RBC 4.08 L (4.5-5.9) X10^6/uL Hgb 12.2 L (13.5-17.5) g/dL Hct 36.6 L (41-53) % MCV 89.6 (80-100) fL MCH 30.0 (26-34) PG MCHC 33.5 (30-36) % RDW 15.0 H (11.6-14.8) % Plt Count 184 (150-400) X10^3/uL Neut % (Auto) 71.9 (50-75) % Lymph % (Auto) 16.3 L (25-40) % Potter % (Auto) 8.9 (3-14) % Eos % (Auto) 2.5 (2-4) % Baso % (Auto) 0.4 (0-2) % Neut # (Auto) 4800 (4364-4327) /uL Lymph # (Auto) 1100 (0652-4086) /uL Potter # (Auto) 600 (0-900) /uL Eos # (Auto) 200 (0-450) /uL Baso # (Auto) 0 (0-100) /uL Sodium 140 (137-145) mmol/L Potassium 3.9 (3.4-5.1) mmol/L Chloride 109 H (98-107) mmol/L Carbon Dioxide 23 (22-32) mmol/L BUN 21 H (9-20) mg/dL Creatinine 1.35 H (0.66-1.25) mg/dL Estimated GFR 50.5 L (>60) mL/min BUN/Creatinine Ratio 15.6 (6-22) Glucose 113 H (80-110) mg/dL Calcium 9.2 (8.4-10.2) mg/dL Total Bilirubin 0.4 (0.2-1.3) mg/dL AST 28 (17-59) IU/L ALT 19 (<50) IU/L Alkaline Phosphatase 83 (38-126) U/L Total Protein 7.3 (6.3-8.2) g/dL Albumin 4.3 (3.5-5.0) g/dL Globulin 3.0 (1.7-4.1) g/dL Albumin/Globulin Ratio 1.4 (1.0-2.8) Lipase 47 (23-300) U/L Urine Color Yellow Urine Appearance Cloudy Urine pH 5.0 (4.5-8.0) Ur Specific [place] 1.025 (1.000-1.035) Urine Protein Trace H (Negative) Urine Glucose (UA) Negative (Negative) g/dL Urine Ketones Negative (NEGATIVE) Urine Occult Blood 3+ H (Negative) Urine Nitrate Negative (Negative) Urine Bilirubin Negative (NEGATIVE) Urine Urobilinogen 0.2 (0.2) E.U./dL Ur Leukocyte Esterase 1+ H (NEGATIVE) Urine RBC >100/hpf (0-5/HPF) Urine WBC 10-30/hpf H (0-5/HPF) Ur Squamous Epith Cells 0-1 /hpf (0-5/HPF) Amorphous Sediment 1+ Urine Bacteria Many (>30) H (None) Urine Mucus 1+ H (Negative) Ur Culture Indicated? Specimen cultured Imaging Data CT scan - abdomen/pelvis: Radiologist's Impression: [address] [address] [address] Scan Report Signed Patient: Diallo Herrera FMR#: [id number] : 6Acct:[id number] Age/Sex: 84 / MDate of Service: 07/08/19 Loc: ED Accession Number: [id number] Procedure: CT abdomen pelvis w con Ordering Provider: Tess Cedeno D.O. PROCEDURE: CT ABDOMEN PELVIS W CON INDICATIONS: right groin pain, back pain, hx kidney stone/testicular ca TECHNIQUE: After the administration of oral and intravenous contrast, 5 mm thick sections acquired from the diaphragms to the symphysis. 5 mm thick coronal and sagittal reformats were performed. For radiation dose reduction, the following was used: automated exposure control, adjustment of mA and/or kV according to patient size. COMPARISON: None. FINDINGS: Image quality: Diagnostic. ABDOMEN: Lung bases: Lung bases are clear. Heart size is normal. Solid organs: The liver is essentially unremarkable with the exception of a 15 mm hypodense lesion involving the medial segment of the left hepatic lobe that has a density value of 5 Hounsfield units (image 15, series 2), compatible with a small cyst. No intrahepatic or extrahepatic biliary dilatation is identified. The portal vein is patent. The spleen is unremarkable. There is an indeterminant ovoid lesion that appears to be hypodense involving the medial limb of the left adrenal gland, which measures 2.0 x 1.0 cm (image 26, series 2). The spleen and pancreas are within normal limits. Both kidneys are normal in size. There are bilateral renal cysts evident with the largest located along the inferior aspect of the left kidney, measuring up to approximately 8.3 cm in diameter. Additional smaller renal cysts are evident. There is no hydronephrosis. Peritoneum and bowel: There is a small hiatal hernia. The stomach is otherwise unremarkable. The small bowel loops are nondilated. The appendix is slightly prominent in size without surrounding inflammation (image 50, series 2). Moderate amount of residual stool is identified throughout the colon. There is no free fluid, loculated fluid collection, or free air. Nodes and vessels: No retroperitoneal or mesenteric adenopathy. Aorta and inferior vena cava are normal in caliber. There is aortic and iliac artery atherosclerosis without evidence of aneurysm. Bones: No acute fracture or suspicious osseous lesion is present. There is severe multilevel degenerative changes of the imaged spine. PELVIS: Genitourinary: Bladder wall thickness is normal. A lobular density is identified projecting into the base of the urinary bladder from the prostate gland. The prostate is not significantly enlarged, however. Miscellaneous: There is a small fat containing right inguinal hernia. No left in the hernia is identified. No free fluid or loculated fluid collection is identified. Bones: No suspicious bony lesions. No acute pelvic fractures are identified. IMPRESSION: 1. No definite acute abnormality is appreciated within the abdomen or pelvis. 2. No hydronephrosis or ureteral calculi. 3. Heterogeneity of the prostate gland with a nodular projection extending into the urinary bladder may be the source for the patient's hematuria. The need for cystoscopy may be determined clinically. Correlation with PSA levels is recommended. 4. Possible mild constipation. No bowel obstruction. 5. Multiple bilateral renal cysts. 6. Small hiatal hernia. 7. Indeterminate left adrenal nodule. Please consider dedicated MRI or CT adrenal imaging. 8. Small fat containing right inguinal hernia. Dictated by: Bakari East M.D. on 07/08/2019 at 14:53 Approved by: Bakari East M.D. on 07/08/2019 at 15:00 [facility] Narrative Medical decision making narrative: Unclear if patient's symptoms could possibly hernia, related to his recent possible kidney stone, related to his chronic back pain flaring or possible cancerous lesion. Lab work shows anemia at 13.1, white count and platelets are normal range. Labs show hemoglobin of 12 down from 13 on March 30. Patient does not have an elevated white count, normal platelets. Patient's creatinine is 1.35 which is elevated from his normal 1.1 from labs in March. chloride is 109 with a BUN of 21 and glucose. LFTs are normal. Urine blood with 1+ leuks and no nitrites. Patient has greater than 100 rbc's with tendon 30 wbc's and many bacteria. Specimen is cultured. CT shows a small hepatic cyst. Indeterminate lesion in the left adrenal gland and bilateral renal cysts measuring up to 8.3 cm in diameter. He does have a lobular density projecting into the place the bladder from the prostate gland with the prostate is not significantly enlarged. Patient does have a small hiatal hernia and a small fat containing right inguinal hernia. And no fracture or suspected osseous lesions are noted there is severe degenerative changes. Suspect right groin pain is secondary to the right inguinal hernia which is fat containing a very small no signs of bowel obstruction or involvement. He does have some concerning findings any follow-up including his adrenal gland and the density projecting into the bladder from the prostate gland. Urine could possibly be infection I would wait for culture to result for starting antibiotics and have patient return to follow up with his urologist. We discussed that he does need follow-up with CT for his adrenal gland. He was not aware of the renal cyst this was discussed with him and his . He has had a cystoscopy or some sort of ?steam treatment? of his prostate in the past with Urology via Dr. Cook 2 years ago. Patient was encouraged to follow up, they use to see Dr. Roa but prefer to follow with Dr. Cook or his collegues. Discussed CT imaging was given to them and they were asked to call to set up this follow-up. They follow with Dr. Anderson for primary care and he can order imaging for the patient. Discharge Plan Departure Patient Disposition: Home Clinical Impression: Hernia, inguinal, right, Adrenal nodule Discharge Date/Time: 07/08/19 16:58 Instructions: Groin Hernia -- Adult Activity Restrictions/Additional Instructions: Follow-up with irregular physician, you do have a small fat containing right inguinal hernia which is likely your source of pain today. Your imaging does show several changes including change the prostate gland projecting towards the bladder and could be a source of her hematuria and you may need cystoscopy with Urology. They are also multiple renal cysts and and left adrenal nodule noted. Your adrenal nodule would likely benefit from MRI or CT imaging as an outpatient which your primary care can order. Take pain medication as prescribed this medication can make you sleepy do not drive, perform hazardous activities or make any major decisions while taking it. I would recommend taking a stool softener while taking this medication. Urine culture is pending this results in about 48-72 hours and if positive you will be called to start antibiotics. Return to the ER for fevers, new or worsening back or abdominal pain, groin pain, new or persistent vomiting, inability or difficulty with urination, if you are not having bowel movements, passing gas, lightheadedness or passing out or other new or concerning symptoms. Prescriptions: New tramadol [Ultram] 50 mg tablet 50 mg PO Q6H PRN (Reason: pain) Qty: 10 RF: 0 No Action omeprazole 40 MG capsule,delayed release(DR/EC) 40 mg PO DAILY Qty: 0 RF: 0 multivitamin Tablet 1 tab PO DAILY Qty: 0 RF: 0 aspirin 81 MG tablet,delayed release (DR/EC) 81 mg PO DAILY Qty: 0 RF: 0 pravastatin 40 mg tablet 40 mg PO BEDTIME RF: 0 nitroglycerin 0.4 mg/hr patch 24 hour 0.4 mg topical DAILY RF: 0 diltiazem HCl 120 mg capsule,extended release 24hr 120 mg PO BEDTIME RF: 0 coenzyme Q10 [Co Q-10] 100 mg Capsule 300 mg PO DAILY RF: 0 cholecalciferol (vitamin D3) [Vitamin D3] 2,000 unit Tablet 2,000 unit PO DAILY RF: 0 Benefiber Powder 2 tsp PO DAILY RF: 0 [place] 500 MG 500 mg PO DAILY RF: 0 Chondroitin Sulfate 1,200 mg 1,200 mg PO DAILY RF: 0 Glucosamine 1,500 mg PO DAILY RF: 0 [place] 3 Fatty Acids-Vitamin E 1,000 mg 1,000 mg PO DAILY RF: 0 Vitamin B-12 1 tab PO DAILY RF: 0 turmeric 1,000 MG 1,000 mg PO DAILY RF: 0 Referrals: Dionisio Anderson MD [Primary Care Provider] -
--- NOTE | 2019-07-08 14:27 | DI.CT.S_ITS ---
PROCEDURE: CT ABDOMEN PELVIS W CON INDICATIONS: right groin pain, back pain, hx kidney stone/testicular ca TECHNIQUE: After the administration of oral and intravenous contrast, 5 mm thick sections acquired from the diaphragms to the symphysis. 5 mm thick coronal and sagittal reformats were performed. For radiation dose reduction, the following was used: automated exposure control, adjustment of mA and/or kV according to patient size. COMPARISON: None. FINDINGS: Image quality: Diagnostic. ABDOMEN: Lung bases: Lung bases are clear. Heart size is normal. Solid organs: The liver is essentially unremarkable with the exception of a 15 mm hypodense lesion involving the medial segment of the left hepatic lobe that has a density value of 5 Hounsfield units (image 15, series 2), compatible with a small cyst. No intrahepatic or extrahepatic biliary dilatation is identified. The portal vein is patent. The spleen is unremarkable. There is an indeterminant ovoid lesion that appears to be hypodense involving the medial limb of the left adrenal gland, which measures 2.0 x 1.0 cm (image 26, series 2). The spleen and pancreas are within normal limits. Both kidneys are normal in size. There are bilateral renal cysts evident with the largest located along the inferior aspect of the left kidney, measuring up to approximately 8.3 cm in diameter. Additional smaller renal cysts are evident. There is no hydronephrosis. Peritoneum and bowel: There is a small hiatal hernia. The stomach is otherwise unremarkable. The small bowel loops are nondilated. The appendix is slightly prominent in size without surrounding inflammation (image 50, series 2). Moderate amount of residual stool is identified throughout the colon. There is no free fluid, loculated fluid collection, or free air. Nodes and vessels: No retroperitoneal or mesenteric adenopathy. Aorta and inferior vena cava are normal in caliber. There is aortic and iliac artery atherosclerosis without evidence of aneurysm. Bones: No acute fracture or suspicious osseous lesion is present. There is severe multilevel degenerative changes of the imaged spine. PELVIS: Genitourinary: Bladder wall thickness is normal. A lobular density is identified projecting into the base of the urinary bladder from the prostate gland. The prostate is not significantly enlarged, however. Miscellaneous: There is a small fat containing right inguinal hernia. No left in the hernia is identified. No free fluid or loculated fluid collection is identified. Bones: No suspicious bony lesions. No acute pelvic fractures are identified. IMPRESSION: 1. No definite acute abnormality is appreciated within the abdomen or pelvis. 2. No hydronephrosis or ureteral calculi. 3. Heterogeneity of the prostate gland with a nodular projection extending into the urinary bladder may be the source for the patient's hematuria. The need for cystoscopy may be determined clinically. Correlation with PSA levels is recommended. 4. Possible mild constipation. No bowel obstruction. 5. Multiple bilateral renal cysts. 6. Small hiatal hernia. 7. Indeterminate left adrenal nodule. Please consider dedicated MRI or CT adrenal imaging. 8. Small fat containing right inguinal hernia. Dictated by: Bakari East M.D. on 07/08/2019 at 14:53 Approved by: Bakari East M.D. on 07/08/2019 at 15:00
[2019-07-08 14:34] LABS: Appearance Urine UA CLOUDY; Bilirubin Urine UA NEGATIVE (NEGATIVE); Color Urine UA YELLOW; Glucose Urine UA NEGATIVE (Negative); Ketones Urine UA NEGATIVE (NEGATIVE); Leukocyte Esterase Urine UA 1+ (NEGATIVE); Nitrite Urine UA NEGATIVE (Negative); Occult Blood Urine UA 3+ (Negative); Protein Urine UA TRACE (Negative); Specific Gravity Urine UA 1.025 (1.000-1.035); Urobilinogen Urine UA 0.2 E.U./dL (0.2)
[2019-07-08 14:35] VITALS: BP 123/57; PULSE 64; RESP 16; O2SAT 97
[2019-07-08 14:41] LABS: Add Manual Diff / Slide Review NO; Basophils Absolute Auto 0 /uL (0-100); Basophils Percent Auto 0.4 % (0-2); Eosinophils Absolute Auto 200 /uL (0-450); Eosinophils Percent Auto 2.5 % (2-4); Hematocrit 36.6 % (41-53); Hemoglobin 12.2 g/dL (13.5-17.5); Lymphocytes Absolute Auto 1100 /uL (1100-4500); Lymphocytes Percent Auto 16.3 % (25-40); Mean Corpuscular HGB Conc 33.5 % (30-36); Mean Corpuscular Volume 89.6 fL (80-100); Monocytes Absolute Auto 600 /uL (0-900); Monocytes Percent Auto 8.9 % (3-14); Neutrophils Absolute Auto 4800 /uL (1500-7000); Neutrophils Percent Auto 71.9 % (50-75); Platelet Count 184 X10^3/uL (150-400); Red Blood Cell Count 4.08 X10^6/uL (4.5-5.9); White Blood Cell Count 6.7 X10^3/uL (4.5-11.0)
[2019-07-08 14:44] LABS: Amorphous Sediment Urine 1+; Bacteria Urine Many (>30); Mucus Urine 1+ (Negative); RBC Urine >100/HPF (0-5/HPF); Squamous Epithelial Cell Urine 0-1 /HPF (0-5/HPF); WBC Urine 10-30/HPF (0-5/HPF)
[2019-07-08 14:45] LABS: Alanine Aminotransferase 19 IU/L (<50); Albumin 4.3 g/dL (3.5-5.0); Albumin Globulin Ratio 1.4 (1.0-2.8); Alkaline Phosphatase 83 U/L (38-126); Aspartate Aminotransferase 28 IU/L (17-59); BUN Creatinine Ratio 15.6 (6-22); Bilirubin Total 0.4 mg/dL (0.2-1.3); Blood Urea Nitrogen 21 mg/dL (9-20); Calcium 9.2 mg/dL (8.4-10.2); Carbon Dioxide 23 mmol/L (22-32); Chloride 109 mmol/L (98-107); Estimated Glomerular Filt Rate 50.5 mL/min (>60); Glucose 113 mg/dL (80-110); HEMOLYSIS < 15 (0-50); Lipase 47 U/L (23-300); Potassium 3.9 mmol/L (3.4-5.1); Sodium 140 mmol/L (137-145); Total Protein 7.3 g/dL (6.3-8.2)
[2019-07-08 14:45] LABS: Culture Indicated Urine Specimen Cultured
[2019-07-08 15:59] VITALS: BP 133/60; PULSE 58; RESP 18; TEMP 36.3; O2SAT 97
[2019-07-08 16:48] VITALS: BP 115/60; PULSE 74; RESP 16; TEMP 36.4; O2SAT 95
[2019-07-08 16:57] VITALS: BP 137/66; PULSE 65; RESP 14; O2SAT 99
== END 2019-07-08 16:58 | disposition home or self-care (01) ==
PROVIDERS: Emergency Provider Emergency Medicine; PCP Family Medicine
DX: K40.90 Unilateral inguinal hernia, without obstruction or gangrene, not specified as recurrent (principal); E27.8 Other specified disorders of adrenal gland; I20.1 Angina pectoris with documented spasm; K22.70 Barrett's esophagus without dysplasia
CPT/HCPCS: 36415; 74177; 80053; 81001; 83690; 85025; 87077; 87086; 87186; 99284; 99285; Q9967

== ENCOUNTER → 2019-07-12 12:53 | Outpatient (CLI) | payer MEDICARE, BC, SELFPAY ==
--- NOTE | 2019-07-12 | DI.MRI.S_ITS ---
PROCEDURE: MR ABDOMEN WO CON INDICATIONS: Other specified disorders of adrenal gland, 1 x 2 cm mass found at the left adrenal gland on CT scanning 5 slice TECHNIQUE: Coronal HASTE, axial 2-D FLASH in- and [id number] with subtractions from the hepatic dome to the iliac crests. COMPARISON: [facility], CT, CT ABDOMEN PELVIS W CON, 07/08/2019, 14:53. FINDINGS: Image quality: Excellent. Adrenal glands: The left adrenal nodule identified by CT scanning 4 days ago is seen to show prominent signal deficit on [id number] gradient T1 imaging, consistent with a benign adrenal adenoma. No additional lesion is found. Other solid organs: Liver is normal in overall size. Gallbladder has been previously resected with focal signal deficit associated with metallic artifact right upper quadrant.. Biliary system is non dilated. Pancreas is normal in morphology. Spleen is normal in size. Both kidneys are normal in size, without hydronephrosis. Nodes and vessels: No retroperitoneal or mesenteric adenopathy by size criteria. Aorta and inferior vena cava are normal in size. Bowel and peritoneum: Unenhanced bowel loops are normal in caliber. No free fluid. Lung bases: No basal pleural effusions. Heart size is normal. Bones and soft tissues: No ventral hernias. Bone marrow is of normal overall signal. IMPRESSION: Benign left adrenal adenoma, small in size, requiring no followup. Dictated by: Evelio Davis M.D. on 07/12/2019 at 14:45 Approved by: Evelio Davis M.D. on 07/12/2019 at 14:48
== END ==
PROVIDERS: PCP Family Medicine; Referring Provider Family Medicine; Visit Provider Family Medicine
DX: D35.02 Benign neoplasm of left adrenal gland (principal); K40.90 Unilateral inguinal hernia, without obstruction or gangrene, not specified as recurrent
CPT/HCPCS: 74181; 99214

== ENCOUNTER → 2019-07-22 15:56 | Outpatient (CLI) | payer MEDICARE, BC, SELFPAY ==
[2019-07-24 02:38] LABS: COVID19 Sendout Not Detected (Not Detect)
== END ==
PROVIDERS: PCP Family Medicine; Visit Provider Physician Assistant
DX: Z01.818 Encounter for other preprocedural examination (principal)
CPT/HCPCS: 87635

== ENCOUNTER 2019-07-25 08:57 | Day surgery (SDC) | payer MEDICARE, BC, SELFPAY ==
[2019-07-18 12:12] VITALS: BMI 31.0
[2019-07-25] VITALS (9 sets, daily range): BP systolic 117–139; BP diastolic 72–84; PULSE 62–78; RESP 8–16; TEMP 36.2–36.4; O2SAT 94–99; BMI 31.0
[2019-07-25] MEDS: LACTATED RINGERS 1,000 ML 42 ML IV (09:11)
--- NOTE | 2019-07-25 11:10 | PM.PREOP ---
Pre-operative Note COVID-19 COVID-19 status: Negative Result date/Date tested (Pos, Neg/Pending): 07/22/19 Interval Note History & Physical reviewed/Exam performed by Physician: Yes Changes to H&P: No
[2019-07-25] MEDS: CEFAZOLIN 2 GM/100 ML FROZ.PIGGY IV (11:46)
--- NOTE | 2019-07-25 12:11 | SUR.OPER ---
Supine on padded OR bed, head on pillow, arms secured on padded arm boards at <90 degrees abduction, legs uncrossed, safety belt at thigh, tape over blanket over lower legs.
[2019-07-25] MEDS: BUPIVACAINE 0.25% (PF) VIAL 30 ML INJ (12:21)
--- NOTE | 2019-07-25 13:34 | PM.OP.1 ---
Operative Date/Time/Diagnoses Date of procedure: 07/25/19 Time of procedure: 13:34 Pre-op diagnosis: Right groin hernia Post-op diagnosis: same Procedure & Clinicians Procedure: Open right inguinal hernia repair with mesh Same procedure as scheduled: Yes Indications: Symptomatic right inguinal Surgeon: Cade Waite Anesthesia Type: General Operative Notes Findings: Large direct hernia defect and an indirect defect Specimen(s): none sent Estimated Blood Loss (mL): 20 Procedure in detail: The patient was brought to the operating room and placed supine on the table. Bilateral lower extremity compression devices were applied. General anesthesia was induced and there were intubated with an LMA. There were then prepped and draped in usual sterile fashion. They received 2 g of Ancef prior to skin incision. A time-out was performed ensure the correct patient procedure necessary equipment within the operating room. 2 finger breath above the right inguinal ligament the skin was infiltrated with 0.25% bupivacaine. The skin incision was made here and the subcutaneous tissues were divided with electrocautery. The external oblique aponeurosis was exposed. The external oblique aponeurosis was then opened along the direction of its fibers. The ilioinguinal nerve was identified on the anterior aspect of the cord and protected. The cord was identified and was freed from the floor of the inguinal canal at its medial aspect. The cord was then swept swept out of the way with the Kylee drain. A direct floor defect was identified. The cord was then skeletonized. The vas deferens and the testicular vessels were preserved and protected. There was an indirect hernia on the anterior medial aspect of the cord which was skeletonized away from the vas deferens and testicular blood supply. This indirect hernia was skeletonized back to the internal ring. The hernia sac was ligated with 3 0 Vicryl and then excised passed off the field, the proximal hernia sac reduced easily back through the internal ring. I selected the large Pro Loop hernia mesh. The inferior medial aspect of the mesh was anchored to the periosteum of the pubic tubercle with 0 Prolene and then was run continuously along the inferior edge of the mesh to the shelving edge of the inguinal ligament. Interrupted 0 Prolene suture was used to anchor the superior aspect of the mesh to the conjoined tendon in several places. The tails were then reapproximated around the spermatic cord loosely. The tails of the mesh were then tucked under the external oblique aponeurosis. The repair was checked for hemostasis. The wound was irrigated with sterile saline. The external oblique aponeurosis was reapproximated in a running fashion using 3 0 Vicryl. The subcutaneous tissues were reapproximated with 3 0 Vicryl skin closed with 4 0 Monocryl followed by the application of Dermabond. At the end of the operation I ensured that his testile was within the scrotum. The sponge instrument count at the end operation was correct. The patient emerged from anesthesia was extubated and transferred to the postoperative care unit in stable condition Complications: none Post-operative Condition: stable Disposition: same day surgery
[2019-07-25] MEDS: HYDROCODONE/ACET 5/325 TABLET 1 TAB PO (13:58)
--- NOTE | 2019-07-25 13:58 | SUR.PHASEI ---
HOB elevated, eating pudding, Dr. salazar spoke with the patient. Rx given to manage pain
--- NOTE | 2019-07-25 14:11 | SUR.PHASEI ---
3600 late entry, upper denture returned to patient, bilateral hearing aids in place upon arrival from the OR
--- NOTE | 2019-07-25 14:18 | SUR.PHASEII ---
Call light within reach. Report to Ruth
--- NOTE | 2019-07-25 15:18 | SUR.PHASEII ---
2860 late entry to bathroom in wheelchair, (unsteady on feet); managed well with assist in bathroom with grab-bars. Voided. To car in w/c, transferred self into the car without difficulty. is going to get his home med at [facility]
== END 2019-07-25 14:52 | disposition home or self-care (01) ==
PROVIDERS: PCP Family Medicine; Referring Provider Surgery; Visit Provider Surgery
PROC: (CPT 49505; principal; 2019-07-25 10:15)
DX: K40.90 Unilateral inguinal hernia, without obstruction or gangrene, not specified as recurrent (principal)
CPT/HCPCS: 49505; C1781; J0690; J1100; J2405; J2704; J3010

== ENCOUNTER 2019-07-27 08:05 | Emergency (ER) | payer MEDICARE, BC, SELFPAY ==
--- NOTE | 2019-07-27 08:08 | ED.GENADULT ---
HPI - General Adult General Chief complaint: Urogenital-Male Stated complaint: surgery on wednesday, Time Seen by Provider: 07/27/19 08:05 Source: patient Mode of arrival: Ambulatory Limitations: no limitations History of Present Illness HPI narrative: 84-year-old male underwent a right inguinal hernia repair with mesh on 07/25/2019. Review of the operative note. That the surgery proceeded well. Patient here today because he is having swelling and discoloration of his right testicle. He is urinating without problems. Has not had a bowel movement since surgery. No fevers. No abdominal pain. He states that he is not in any discomfort unless he puts pressure on the right side of his scrotum. Patient not on blood thinners Related Data Home Medications Medication Instructions Recorded Confirmed omeprazole 40 mg PO DAILY #0 06/24/11 07/25/19 aspirin 81 mg PO DAILY #0 01/21/12 07/25/19 multivitamin 1 tab PO DAILY #0 01/21/12 07/25/19 Benefiber Powder 2 tsp PO DAILY 03/30/19 07/25/19 [place] 500 mg PO DAILY 03/30/19 07/25/19 Chondroitin Sulfate 1,200 mg PO DAILY 03/30/19 07/25/19 Glucosamine 1,500 mg PO DAILY 03/30/19 07/25/19 [place] 3 Fatty Acids-Vitamin E 1,000 mg PO DAILY 03/30/19 07/25/19 Vitamin B-12 1 tab PO DAILY 03/30/19 07/25/19 cholecalciferol (vitamin D3) 2,000 unit PO DAILY 03/30/19 07/25/19 [Vitamin D3] coenzyme Q10 [Co Q-10] 300 mg PO DAILY 03/30/19 07/25/19 diltiazem HCl 120 mg PO BEDTIME 03/30/19 07/25/19 nitroglycerin 0.4 mg TOPICAL DAILY 03/30/19 07/25/19 pravastatin 40 mg PO BEDTIME 03/30/19 07/25/19 turmeric 1,000 mg PO DAILY 03/30/19 07/25/19 Previous Rx's Medication Instructions Recorded acetaminophen [Tylenol] 650 mg PO QID PRN #60 cap 07/25/19 docusate sodium [Colace] 100 mg PO BID #30 cap 07/25/19 ibuprofen 800 mg PO Q6H PRN #60 tab 07/25/19 tramadol 50 mg PO Q6H PRN #30 tab 07/25/19 Allergies Allergy/AdvReac Type Severity Reaction Status Date / Time simethicone Allergy Unknown Verified 07/27/19 08:20 oxycodone [OXYCODONE] AdvReac Mild COMITING, Verified 07/27/19 08:20 HALLUCINATIONS Review of Systems Constitutional Constitutional: Denies fever(s) Cardiovascular Cardiovascular: Denies chest pain and Denies dyspnea Respiratory Respiratory: Denies dyspnea Gastrointestinal Gastrointestinal: Denies abdominal pain Comments: Has not had a bowel movement since surgery Genitourinary Comments: Discoloration right hemiscrotum no problems urinating Integumentary/Breasts Comments: Bruising to the right hemiscrotum Neurologic Neurologic: Denies behavioral changes Psychiatric Psychiatric: Denies behavioral changes Hematologic/Lymphatic Hematologic/Lymphatic: Denies easy bleeding and Denies easy bruising Patient History Medical History Back pain (Acute) Johnson's esophagus (Acute) Edema (Acute) Enlarged prostate (Acute) GERD (gastroesophageal reflux disease) (Acute) Headache, migraine (Acute) HLD (hyperlipidemia) (Acute) HTN (hypertension) (Acute) Neuropathy (Acute) Prinzmetal angina (Acute) Testicular cancer (Acute) Surgical History History of carpal tunnel repair (1989) History of cataract removal with insertion of prosthetic lens History of inguinal hernia repair (Acute) History of knee replacement (2009) History of knee replacement (~2013) History of surgery (Acute) Status post cholecystectomy (2004) Family History Mother Heart disease Social History household members: spouse Smoking Status: Former smoker alcohol intake: never Smoking Status: Former smoker Substance Use Type: does not use Exam Initial Vital Signs Initial Vital Signs: Vital Signs Temperature 98.2 F 07/27/19 08:10 Pulse Rate 89 07/27/19 08:10 Respiratory Rate 18 07/27/19 08:10 Blood Pressure 141/63 H 07/27/19 08:10 Pulse Oximetry 97 07/27/19 08:10 Const General: cooperative, healthy appearing and comfortable Resp Effort & Inspection: normal respiratory effort Other: The surgical scar in the right inguinal canal looks well. No dehiscence. No surrounding erythema. The right hemiscrotum is purple in color. No defined fluid collections felt. Skin Other: Surgical scar right inguinal canal, purple right hemiscrotum Extrem General: normal to inspection and capillary refill normal Psych Appearance: grossly normal and well kempt Course Vital Signs Vital signs: Vital Signs - 8 hr 07/27/19 08:10 Temperature 98.2 F Pulse Rate 89 Respiratory Rate 18 Blood Pressure 141/63 H Pulse Oximetry 97 Medical Decision Making MDM Narrative Medical decision making narrative: I discussed the case with Dr. Hansen with General surgery who evaluated the patient in the emergency department and states that patient's presenting issue is a normal postoperative swelling and bruising. No further intervention needed. Patient does have follow-up already scheduled. He was given return precautions and follow-up instructions. He expressed understanding and agreement. Discharge Plan Departure Patient Disposition: Home Clinical Impression: Postoperative ecchymosis Activity Restrictions/Additional Instructions: Continue with all of the postoperative instructions given to you by Dr Waite. Keep all of your scheduled medical appointments. Return to the emergency department for any new or worsening symptoms Prescriptions: No Action omeprazole 40 MG capsule,delayed release(DR/EC) 40 mg PO DAILY Qty: 0 RF: 0 multivitamin Tablet 1 tab PO DAILY Qty: 0 RF: 0 aspirin 81 MG tablet,delayed release (DR/EC) 81 mg PO DAILY Qty: 0 RF: 0 pravastatin 40 mg tablet 40 mg PO BEDTIME RF: 0 nitroglycerin 0.4 mg/hr patch 24 hour 0.4 mg topical DAILY RF: 0 diltiazem HCl 120 mg capsule,extended release 24hr 120 mg PO BEDTIME RF: 0 coenzyme Q10 [Co Q-10] 100 mg Capsule 300 mg PO DAILY RF: 0 cholecalciferol (vitamin D3) [Vitamin D3] 2,000 unit Tablet 2,000 unit PO DAILY RF: 0 Benefiber Powder 2 tsp PO DAILY RF: 0 [place] 500 MG 500 mg PO DAILY RF: 0 Chondroitin Sulfate 1,200 mg 1,200 mg PO DAILY RF: 0 Glucosamine 1,500 mg PO DAILY RF: 0 [place] 3 Fatty Acids-Vitamin E 1,000 mg 1,000 mg PO DAILY RF: 0 Vitamin B-12 1 tab PO DAILY RF: 0 turmeric 1,000 MG 1,000 mg PO DAILY RF: 0 tramadol 50 mg tablet 50 mg PO Q6H PRN (Reason: pain) Qty: 30 RF: 0 ibuprofen 200 mg tablet 800 mg PO Q6H PRN (Reason: pain) Qty: 60 RF: 0 docusate sodium [Colace] 100 mg capsule 100 mg PO BID Qty: 30 RF: 0 acetaminophen [Tylenol] 325 mg capsule 650 mg PO QID PRN (Reason: pain) Qty: 60 RF: 0 Referrals: Dionisio Anderson MD [Primary Care Provider] -
[2019-07-27 08:10] VITALS: BP 141/63; PULSE 89; RESP 18; TEMP 36.8; O2SAT 97; BMI 31.0
== END 2019-07-27 09:22 | disposition home or self-care (01) ==
PROVIDERS: Emergency Provider Emergency Medicine; PCP Family Medicine
DX: N99.840 Postprocedural hematoma of a genitourinary system organ or structure following a genitourinary system procedure (principal)
CPT/HCPCS: 99281

== ENCOUNTER → 2020-05-03 08:54 | Outpatient (CLI) | payer MEDICARE, BC, SELFPAY ==
[2020-05-03] MEDS: COVID-19 VACC, Ad26(JANSSEN)/PF 0.5 ML IM (09:09)
== END ==
PROVIDERS: PCP Family Medicine; Visit Provider Internal Medicine
DX: Z23 Encounter for immunization (principal)
CPT/HCPCS: 0031A; 91303

== ENCOUNTER → 2020-05-21 10:46 | Outpatient (CLI) | payer MEDICARE, BC, SELFPAY ==
--- NOTE | 2020-05-21 10:49 | DI.RAD.S_ITS ---
PROCEDURE: XR SHOULDER RT MIN 2V INDICATIONS: RT SHOULDER PAIN TECHNIQUE: 3 views of the shoulder were acquired. COMPARISON: None. FINDINGS: Bones: No fractures or dislocations. No suspicious bony lesions. Visualized ribs appear intact. Soft tissues: No suspicious soft tissue calcifications. 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 Dictated by: Evelio Davis M.D. on 05/21/2020 at 11:12 Approved by: Evelio Davis M.D. on 05/21/2020 at 11:12
== END ==
PROVIDERS: PCP Family Medicine; Referring Provider Family Medicine; Visit Provider Family Medicine
DX: M25.511 Pain in right shoulder (principal); M19.011 Primary osteoarthritis, right shoulder
CPT/HCPCS: 73030

== ENCOUNTER → 2020-07-09 10:09 | Outpatient (CLI) | payer MEDICARE, BC, SELFPAY ==
--- NOTE | 2020-07-09 | DI.CT.S_ITS ---
PROCEDURE: CT CHEST WO CON INDICATIONS: Solitary pulmonary nodule TECHNIQUE: Noncontrast 2.0-2.5 mm thick sections acquired from the pulmonary apices to the posterior costophrenic angles. 7 mm thick axial MIP and 5 mm coronal and sagittal reformats were then acquired. A low radiation dose technique was utilized. COMPARISON: [facility], CR, XR CHEST 1V, 03/30/2019, 12:02. [facility], CT, CT CHEST WO CON, 04/13/2019, 10:42. FINDINGS: Image quality: Diagnostic, given the low radiation dose technique. Lungs and pleura: Pulmonary nodules are stable. Nodule 1: 4 mm; NICK; series 3, image 114. Nodule 2: 3 mm; NICK; series 3, image 149. Bilateral subpleural septal thickening, predominantly involving lower lobes. No pleural effusion. Mediastinum: Heart size is mildly increased. There is severe coronary artery calcification. No pericardial effusion. No mediastinal adenopathy by size criteria. Thoracic aorta and central pulmonary arteries are normal in size. Esophagus is normal in caliber. Small hiatal hernia. Bones and chest wall: No suspicious bony lesions. No vertebral body compression fractures. No axillary or supraclavicular adenopathy by size criteria. Thyroid gland is normal. Abdomen: Visualized upper abdomen solid organs and bowel loops appear normal in the absence of contrast. IMPRESSION: 1. Stable left upper lobe nodules. 2. Severe coronary artery atherosclerosis. 3. Small hiatal hernia. Fleischner Society criteria for SOLID lung nodule followup. Nodule size (mm)Low-risk patientHigh-risk patient<6 (single or multiple)No routine followup.Optional CT at 12 months. 6-8 (single or multiple)CT at 6-12 months, then optional CT at 18-24 mo.CT at 6-12 months, then CT at 18-24 months. >8 (single)CT at 3 months, PET-CT, or biopsy. Same as for low-risk pts. >8 (multiple)CT at 3-6 months, then optional CT at 18-24 mo.CT at 3-6 months, then CT at 18-24 months. Fleischner Society criteria for SUB-SOLID lung nodule followup. Solitary pure ground-glass nodules<6 mm (ground glass or part solid)No followup needed. 6 mm or larger (ground glass)CT at 6-12 months to confirm persistence, then CT every 2 years until 5 years.6 mm or larger (part solid)CT at 3-6 months to confirm persistence, then annual CT until 5 years if unchanged and solid component remains <6 mm. Multiple sub-solid nodules<6 mmCT at 3-6 months, then CT consider at 2 & 4 years for high risk patients. [address] at 3-6 months. Subsequent management based on most suspicious lesions. Recommendations do not apply to lung cancer screening, patients with immunosuppression, or patients with known primary cancer. Dictated by: Linsey Hoffman M.D. on 07/09/2020 at 13:10 Approved by: Linsey Hoffman M.D. on 07/09/2020 at 13:17
== END ==
PROVIDERS: PCP Family Medicine; Referring Provider Family Medicine; Visit Provider Family Medicine
DX: R91.8 Other nonspecific abnormal finding of lung field (principal); I25.10 Atherosclerotic heart disease of native coronary artery without angina pectoris; K44.9 Diaphragmatic hernia without obstruction or gangrene
CPT/HCPCS: 71250

== ENCOUNTER → 2020-10-15 08:01 | Outpatient (CLI) | payer MEDICARE, BC, SELFPAY ==
[2020-10-15 09:08] LABS: Alanine Aminotransferase 24 IU/L (<50); Albumin 4.4 g/dL (3.5-5.0); Albumin Globulin Ratio 1.7 (1.0-2.8); Alkaline Phosphatase 81 U/L (38-126); Aspartate Aminotransferase 29 IU/L (17-59); BUN Creatinine Ratio 13.1 (6-22); Bilirubin Total 0.5 mg/dL (0.2-1.3); Blood Urea Nitrogen 17 mg/dL (9-20); Calcium 9.6 mg/dL (8.4-10.2); Carbon Dioxide 27 mmol/L (22-32); Chloride 106 mmol/L (98-107); Cholesterol 143 mg/dL (140-199); Estimated Glomerular Filt Rate 52.6 mL/min (>60); Globulin 2.6 g/dL (1.7-4.1); Glucose 102 mg/dL (80-110); HDL Cholesterol 38 mg/dL (40-60); HEMOLYSIS < 15 (0-50); LDL Cholesterol Calculated 63 mg/dL (<100); Sodium 142 mmol/L (137-145); Triglycerides 211 mg/dL (35-150)
== END ==
PROVIDERS: PCP Family Medicine; Referring Provider Internal Medicine Cardiovascular Disease; Visit Provider Internal Medicine Cardiovascular Disease
DX: E78.5 Hyperlipidemia, unspecified (principal); I10 Essential (primary) hypertension
CPT/HCPCS: 36415; 80053; 80061

== ENCOUNTER 2021-05-03 13:37 | Emergency (ER) | payer MEDICARE, BC, SELFPAY ==
--- NOTE | 2021-05-03 13:58 | DI.RAD.S_ITS ---
PROCEDURE: XR SHOULDER RT MIN 2V INDICATIONS: pulling snow tires out of the trunk and injured his right sh TECHNIQUE: 3 views of the shoulder were acquired. COMPARISON: [facility], CR, XR SHOULDER RT MIN 2V, 05/21/2020, 11:02. FINDINGS: Bones: No fractures or dislocations. Moderate acromioclavicular joint and glenohumeral joint osteoarthritic changes are seen. No suspicious bony lesions. Visualized ribs appear intact. Soft tissues: No suspicious soft tissue calcifications. IMPRESSION: Moderate right shoulder joint osteoarthritis. No gross acute fracture or dislocation. Dictated by: Simon Julian M.D. on 05/03/2021 at 14:36 Approved by: Simon Julian M.D. on 05/03/2021 at 14:37
[2021-05-03 14:00] VITALS: BP 146/79; PULSE 68; RESP 18; TEMP 36.2; O2SAT 99; BMI 32.2
--- NOTE | 2021-05-03 15:16 | ED_ITS ---
HPI - Extremity Injury (Upper) <Arun Miller PA-C - Last Filed: 05/03/21 20:06> General Chief Complaint: Extremity Injury, Upper Stated Complaint: wrenched shoulder, sore on both sides Time Seen by Provider: 05/03/21 14:37 Source: patient Mode of arrival: Family Vehicle History of Present Illness HPI narrative: Patient is an 86-year-old male presenting to the emergency department today for an evaluation of a right shoulder injury. Patient explains that he was moving snow tires out of his car when one became stuck. He pulled on the tire and states that he felt a pop in his right shoulder. He states he has been able to control his pain with 2 extra-strength Tylenol, however he notes that he has been experiencing intermittent numbness and tingling in the right upper extremity since . He denies injury or pain elsewhere. No fever, chills, chest pain, cough, shortness of breath, nausea, vomiting, diarrhea, abdominal pain, constipation, dysuria, hematuria, or any other concerning symptoms reported. No further concerns were voiced at this time. Related Data Home Medications Medication Instructions Recorded Confirmed omeprazole 40 mg capsule,delayed 40 mg PO DAILY #0 06/24/11 03/13/21 release aspirin 81 mg tablet,delayed 81 mg PO DAILY #0 01/21/12 03/13/21 release multivitamin 1 tab PO DAILY #0 01/21/12 03/13/21 Benefiber Powder 2 tsp PO DAILY 03/30/19 03/13/21 [place] 500 mg PO DAILY 03/30/19 03/13/21 Chondroitin Sulfate 1,200 mg PO DAILY 03/30/19 03/13/21 Glucosamine 1,500 mg PO DAILY 03/30/19 03/13/21 [place] 3 Fatty Acids-Vitamin E 1,000 mg PO DAILY 03/30/19 03/13/21 Vitamin B-12 1 tab PO DAILY 03/30/19 03/13/21 cholecalciferol (vitamin D3) 50 2,000 unit PO DAILY 03/30/19 03/13/21 mcg (2,000 unit) tablet (Vitamin D3) coenzyme Q10 100 mg capsule (Co 300 mg PO DAILY 03/30/19 03/13/21 Q-10) diltiazem HCl 120 mg 120 mg PO BEDTIME 03/30/19 03/13/21 capsule,extended release 24 hr nitroglycerin 0.4 mg/hr 0.4 mg TOPICAL DAILY 03/30/19 03/13/21 transdermal 24 hour patch pravastatin 40 mg tablet 40 mg PO BEDTIME 03/30/19 03/13/21 turmeric 1,000 mg PO DAILY 03/30/19 03/13/21 Previous Rx's Medication Instructions Recorded acetaminophen 325 mg capsule 650 mg PO QID PRN #60 cap 07/25/19 (Tylenol) docusate sodium 100 mg capsule 100 mg PO BID #30 cap 07/25/19 (Colace) ibuprofen 200 mg tablet 800 mg PO Q6H PRN #60 tab 07/25/19 tramadol 50 mg tablet 50 mg PO Q6H PRN #30 tab 07/25/19 Allergies Allergy/AdvReac Type Severity Reaction Status Date / Time simethicone Allergy Mild Diarrhea Verified 05/03/21 14:07 oxycodone [OXYCODONE] AdvReac Mild COMITING, Verified 05/03/21 13:57 HALLUCINATIONS Review of Systems <Arun Milelr PA-C - Last Filed: 05/03/21 20:06> Constitutional Constitutional: Denies chills, Denies fatigue, Denies fever(s), Denies frequent falls, Denies lethargy and Denies weakness Eyes Eyes: Denies loss of vision ENT Ears, Nose, Mouth, and Throat: Denies dizziness and Denies neck pain Cardiovascular Cardiovascular: Denies chest pain, Denies irregular heart rhythm, Denies lightheadedness, Denies palpitations, Denies dyspnea, Denies dyspnea on exertion and Denies orthopnea Respiratory Respiratory: Denies cough, Denies dyspnea, Denies dyspnea on exertion and Denies wheezing Gastrointestinal Gastrointestinal: Denies abdominal pain, Denies change in bowel habits, Denies diarrhea, Denies nausea and Denies vomiting Genitourinary Genitourinary: Denies hematuria, Denies flank pain, Denies urinary incontinence and Denies urinary urgency Musculoskeletal Musculoskeletal: Denies back pain, Reports arthralgias (Right shoulder), Denies muscle weakness, Denies neck pain, Reports numbness (Right upper extremity) and Reports tingling (Right upper extremity) Integumentary/Breasts Skin/Breast: Denies pruritus, Denies erythema, Denies rash and Denies wounds Neurologic Neurologic: Denies behavioral changes, Denies confusion, Denies dizziness, Denies frequent falls, Denies loss of vision, Reports numbness (Right upper extremity), Reports tingling (Right upper extremity) and Denies weakness Psychiatric Psychiatric: Denies behavioral changes and Denies confusion Endocrine Endocrine: Denies fatigue and Denies palpitations Allergic/Immunologic Allergic/Immunologic: Denies wheezing Patient History <Arun Miller PA-C - Last Filed: 05/03/21 20:06> Medical History Back pain Johnson's esophagus Edema Enlarged prostate GERD (gastroesophageal reflux disease) Headache, migraine HLD (hyperlipidemia) HTN (hypertension) Neuropathy Prinzmetal angina Skin tear Testicular cancer Surgical History History of carpal tunnel repair (1989) History of cataract removal with insertion of prosthetic lens History of inguinal hernia repair History of knee replacement (2009) History of knee replacement (~2013) History of surgery Status post cholecystectomy (2004) Family History Mother Heart disease Social History household members: spouse Smoking Status: Former smoker alcohol intake: never Smoking Status: Former smoker alcohol intake frequency: 0-2 drinks per day Substance Use Type: does not use Exam <Arun Miller PA-C - Last Filed: 05/03/21 20:06> Narrative Exam Narrative: GENERAL: 86 year old patient appears stated age. Well-developed patient, in no acute distress. HEAD: Atraumatic. Normocephalic. EYES: Pupils equal round and reactive. Extraocular motions intact. No scleral icterus. No injection or drainage. ENT: Nose without bleeding, purulent drainage. Throat without erythema, tonsillar hypertrophy or exudate. Airway patent. NECK: Trachea midline. Non tender CARDIOVASCULAR: Regular rate and rhythm without murmurs, gallops, or rubs. RESPIRATORY: Clear to auscultation. Breath sounds equal bilaterally. No wheezes, rales, or rhonchi. GASTROINTESTINAL: Abdomen soft, non-tender, nondistended. EXTREMITIES: No edema. Tenderness to palpation appreciated along the right acromioclavicular joint, right anterior deltoid, and right scapula. Good sensation to light touch appreciated throughout the bilateral upper extremities. Gross motor function intact throughout the bilateral upper extremities. Radial pulse palpated on the right. No pain with resisted abduction of the right shoulder. Negative Yan sign. Negative sag sign on the right upper extremity. BACK: Nontender without deformity or crepitance. No flank tenderness. NEURO: AOx3. SKIN: No rash or erythema of visible areas Initial Vital Signs Initial Vital Signs: Vital Signs Temperature 97.2 F L 05/03/21 14:00 Pulse Rate 68 05/03/21 14:00 Respiratory Rate 18 05/03/21 14:00 Blood Pressure 146/79 H 05/03/21 14:00 Pulse Oximetry 99 05/03/21 14:00 Course <FUAD Snider Last Filed: 05/03/21 20:06> Course Course Narrative: Right shoulder x-ray obtained. Orders Ordered: ED Orders 05/03/21 13:58 XR shoulder RT min 2V Stat Vital Signs Vital signs: Vital Signs - 8 hr 05/03/21 14:00 Temperature 97.2 F L Pulse Rate 68 Respiratory Rate 18 Blood Pressure 146/79 H Pulse Oximetry 99 MDM - Extremity Injury (Upper) <FUAD Snider Last Filed: 05/03/21 20:06> Imaging Data Extremity x-ray #1: Radiologist's Impression: PROCEDURE:? XR SHOULDER RT MIN 2V ? INDICATIONS:? pulling snow tires out of the trunk and injured his right sh ? TECHNIQUE:? 3 views of the shoulder were acquired.? ? COMPARISON:? [facility], , XR SHOULDER RT MIN 2V, 05/21/2020, 11:02. ? FINDINGS:? ? Bones:? No fractures or dislocations.? Moderate acromioclavicular joint and glenohumeral joint osteoarthritic changes are seen.? No suspicious bony lesions.? Visualized ribs appear intact.? ? Soft tissues:? No suspicious soft tissue calcifications.? ? IMPRESSION:? Moderate right shoulder joint osteoarthritis.? No gross acute fracture or dislocation. ? ? Dictated by: Simon Julian M.D. on 05/03/2021 at 14:36 ? ? Approved by: Simon Julian M.D. on 05/03/2021 at 14:37 ? MDM Narrative Medical decision making narrative: Differential diagnosis to consider but not limited to fracture versus dislocation versus sprain versus strain. X-ray imaging the emergency department today did not show signs of acute bony abnormality, however I did discuss the findings of osteoarthritis in the right shoulder with the patient. I instructed the patient to continue use of Tylenol for pain management and recommended that he begin applying topical Voltaren gel to the painful area as needed. Patient expresses understanding and agrees to plan. Agreed to set up a referral for orthopedic follow-up for the patient. He states at this time he is comfortable being discharged home. Patient is stable for discharge. Strict return precautions were discussed with the patient prior to discharge. Discharge Plan Departure Patient Disposition: Home Clinical Impression: Osteoarthritis of right shoulder, Acute pain of right shoulder Instructions: DI for Osteoarthritis Activity Restrictions/Additional Instructions: *You have been diagnosed with right shoulder osteoarthritis, acute right shoulder pain. *What to do: *Please continue to take your regular medications as directed. [ ] New medication prescriptions sent to your pharmacy: [ ] [ ] New medication written as a paper prescription [X] No new medications given You were evaluated in the emergency department today for right shoulder pain. X-ray imaging obtained in the emergency department today did not show signs of acute bony abnormality. Findings of osteoarthritis in the right shoulder were identified today. I recommend he continue taking Tylenol as needed for pain management. Additionally, I recommend applying topical Voltaren gel to the painful area as needed. This gel can be applied to the shoulder 4 times daily. I have set a peripheral free to follow-up with [facility] for further evaluation. They should be reaching out to you to schedule an appointment. Please do not hesitate to return to the emergency department if you experience worsening pain, increasing numbness and tingling in the right upper extremity, or any other concerning symptoms. *Please follow up with your primary care provider in 2-3 days, call for an appointment. Let them know you were seen in the Emergency Department and that we ask that you be seen in follow up. We will electronically transmit a record of today's note if your PCP is in our system *If you do not have a primary care provider please contact the [facility] Resource line at [phone]. They will ask some questions about your medical history and help get you set up with a doctor in the community. *Return to Emergency Department if you should have any new, worsening or concerning symptoms, such as fever greater than 101 F, shaking chills, worsening pain, persistent vomiting or other bothersome symptoms. Prescriptions: No Action omeprazole 40 MG capsule,delayed release(DR/EC) 40 mg PO DAILY Qty: 0 0RF multivitamin Tablet 1 tab PO DAILY Qty: 0 0RF aspirin 81 MG tablet,delayed release (DR/EC) 81 mg PO DAILY Qty: 0 0RF pravastatin 40 mg tablet 40 mg PO BEDTIME 0RF nitroglycerin 0.4 mg/hr patch 24 hour 0.4 mg topical DAILY 0RF diltiazem HCl 120 mg capsule,extended release 24hr 120 mg PO BEDTIME 0RF Label Comments: take 1 capsule by mouth once daily coenzyme Q10 [Co Q-10] 100 mg Capsule 300 mg PO DAILY 0RF cholecalciferol (vitamin D3) [Vitamin D3] 2,000 unit Tablet 2,000 unit PO DAILY 0RF Benefiber Powder 2 tsp PO DAILY 0RF [place] 500 MG 500 mg PO DAILY 0RF Chondroitin Sulfate 1,200 mg 1,200 mg PO DAILY 0RF Glucosamine 1,500 mg PO DAILY 0RF [place] 3 Fatty Acids-Vitamin E 1,000 mg 1,000 mg PO DAILY 0RF Vitamin B-12 1 tab PO DAILY 0RF turmeric 1,000 MG 1,000 mg PO DAILY 0RF tramadol 50 mg tablet 50 mg PO Q6H PRN (Reason: pain) Qty: 30 0RF ibuprofen 200 mg tablet 800 mg PO Q6H PRN (Reason: pain) Qty: 60 0RF docusate sodium [Colace] 100 mg capsule 100 mg PO BID Qty: 30 0RF acetaminophen [Tylenol] 325 mg capsule 650 mg PO QID PRN (Reason: pain) Qty: 60 0RF Referrals: John Astorga MD [Physician] - 5-7 days Dionisio Anderson MD [Primary Care Provider] -
== END 2021-05-03 15:52 | disposition home or self-care (01) ==
PROVIDERS: Emergency Provider Physician Assistant; Family Provider Family Medicine; PCP Family Medicine
DX: M25.511 Pain in right shoulder (principal); M19.011 Primary osteoarthritis, right shoulder; X50.0XXA Overexertion from strenuous movement or load, initial encounter
CPT/HCPCS: 73030; 99283

== ENCOUNTER 2021-05-08 13:11 | Outpatient (CLI) | payer MEDICARE, BC, SELFPAY | END 2021-05-08 18:00 | LOC: PHYS 13:14 | PROVIDERS: Family Provider Family Medicine; PCP Family Medicine; Referring Provider Family Medicine; Visit Provider Family Medicine | DX: R20.2 Paresthesia of skin (principal) | CPT/HCPCS: 95886; 95913 ==

== ENCOUNTER 2021-05-26 11:07 | Emergency (ER) | payer MEDICARE, BC, SELFPAY ==
[2021-05-26] VITALS (18 sets, daily range): BP systolic 125–172; BP diastolic 63–83; PULSE 60–80; RESP 10–32; TEMP 36.3; O2SAT 95–99
--- NOTE | 2021-05-26 11:17 | DI.RAD.S_ITS ---
PROCEDURE: XR CHEST 1V INDICATIONS: chest pain TECHNIQUE: One view of the chest was acquired. COMPARISON: , CT, CT CHEST WO CON, 07/09/2020, 10:17. , CR, XR CHEST 1V, 03/30/2019, 12:02. FINDINGS: Surgical changes and devices: None. Lungs and pleura: An incomplete inspiratory result is noted, causing a crowded appearance to the lung markings. No focal infiltrates are seen. No pneumothorax or significant pleural effusions are seen. Mediastinum: Mediastinal contours appear normal. Heart size is normal. Atherosclerotic calcification of the aortic arch is noted. Bones and chest wall: No suspicious bony lesions. Age-appropriate bony degenerative changes are seen. Overlying soft tissues appear unremarkable. IMPRESSION: Unremarkable portable chest for age. Dictated by: Bin Johnson M.D. on 05/26/2021 at 10:34 Approved by: Bin Johnson M.D. on 05/26/2021 at 10:35
[2021-05-26] MEDS: ASPIRIN 81 MG CHEW TAB 324 MG PO (11:28)
[2021-05-26 11:31] LABS: Add Manual Diff / Slide Review NO; Basophils Absolute Auto 0 /uL (0-100); Basophils Percent Auto 0.5 % (0-2); Eosinophils Absolute Auto 200 /uL (0-450); Eosinophils Percent Auto 3.2 % (2-4); Hematocrit 35.7 % (41-53); Lymphocytes Absolute Auto 1300 /uL (1100-4500); Lymphocytes Percent Auto 19.7 % (25-40); Mean Corpuscular HGB Conc 33.6 % (30-36); Mean Corpuscular Volume 89.4 fL (80-100); Monocytes Absolute Auto 700 /uL (0-900); Monocytes Percent Auto 9.9 % (3-14); Neutrophils Absolute Auto 4600 /uL (1500-7000); Neutrophils Percent Auto 66.7 % (50-75); Platelet Count 211 X10^3/uL (150-400); Red Blood Cell Count 3.99 X10^6/uL (4.5-5.9); Red Cell Distribution Width 14.9 % (11.6-14.8); White Blood Cell Count 6.9 X10^3/uL (4.5-11.0)
[2021-05-26 11:38] LABS: Prothrombin Time 10.9 SECONDS (10.1-12.7)
[2021-05-26 11:40] LABS: PTT Partial Thromboplastin Tim 30 SECONDS (26.4-36.2)
[2021-05-26 11:44] LABS: Alanine Aminotransferase 19 IU/L (<50); Albumin 4.7 g/dL (3.5-5.0); Albumin Globulin Ratio 1.6 (1.0-2.8); Alkaline Phosphatase 67 U/L (38-126); Aspartate Aminotransferase 24 IU/L (17-59); BUN Creatinine Ratio 12.1 (6-22); Bilirubin Total 0.5 mg/dL (0.2-1.3); Blood Urea Nitrogen 17 mg/dL (9-20); COVID19 -Nasal RAPID Negative (Negative); Calcium 9.2 mg/dL (8.4-10.2); Carbon Dioxide 25 mmol/L (22-32); Chloride 106 mmol/L (98-107); Creatine Kinase 88 U/L (55-170); Estimated Glomerular Filt Rate 47.8 mL/min (>60); Globulin 2.9 g/dL (1.7-4.1); Glucose 110 mg/dL (80-110); HEMOLYSIS < 15 (0-50); Lipase 41 U/L (23-300); Magnesium 2.1 mg/dL (1.6-2.3); Potassium 4.2 mmol/L (3.4-5.1); Sodium 139 mmol/L (137-145); Total Protein 7.6 g/dL (6.3-8.2)
[2021-05-26 11:54] LABS: NT-proBNP (BNP-Adult 18+) 103 pg/mL (<450); Troponin I < 0.012 ng/mL (0.01-0.034)
--- NOTE | 2021-05-26 12:29 | ED_ITS ---
HPI - Chest Pain General Chief Complaint: Chest Pain Stated Complaint: Chest pain Time Seen by Provider: 05/26/21 12:28 Source: patient and family Mode of arrival: Ambulatory Limitations: no limitations Limitations: no limitations History of Present Illness HPI narrative: This is a 86-year-old male who comes emergency department complaint of chest pain. Patient has history of Prinzmetal's angina, testicular cancer remotely with multiple surgeries and chemotherapy x3 years. States that last night he woke with pain it started around 11 30 in the evening with gradually increased overnight starting initially in his left shoulder he thought it was secondary to arthritis in use Voltaren. It then began to radiate to his left upper chest and feel more typical of his Prinzmetal's angina. He typically will take nitro sublingual but had his nitro patch in place. He states symptoms continued until he arrived in the emergency department and then resolved. He denies any diaphoresis. No shortness of breath. No nausea or vomiting. No other GI or urinary symptoms. His only other changes he did not take his amitriptyline last night because give some dry mouth but he had more insomnia because of that. No cough, cold or congestion. has had a cardiac catheterization, no stents. He has had cholecystectomy, carpal tunnel and is scheduled for hernia repair, an MRI of his neck and possible secondary carpal tunnel wrist surgery. He is on aspirin, was taking amitriptyline to last night, diltiazem, fish oil, nitro patch nightly for 12 hours, omeprazole, Ranexa and rosuvastatin. Related Data Home Medications Medication Instructions Recorded Confirmed omeprazole 40 mg capsule,delayed 40 mg PO DAILY #0 06/24/11 03/13/21 release aspirin 81 mg tablet,delayed 81 mg PO BEDTIME #0 01/21/12 03/13/21 release multivitamin 1 tab PO DAILY #0 01/21/12 03/13/21 Benefiber Powder 2 tsp PO DAILY 03/30/19 03/13/21 Boswellia 500 mg PO DAILY 03/30/19 03/13/21 Chondroitin Sulfate 1,200 mg PO DAILY 03/30/19 03/13/21 Glucosamine 1,500 mg PO DAILY 03/30/19 03/13/21 Antimony 3 Fatty Acids-Vitamin E 1,000 mg PO DAILY 03/30/19 03/13/21 Vitamin B-12 1 tab PO DAILY 03/30/19 03/13/21 cholecalciferol (vitamin D3) 50 2,000 unit PO DAILY 03/30/19 03/13/21 mcg (2,000 unit) tablet (Vitamin D3) coenzyme Q10 100 mg capsule (Co 300 mg PO DAILY 03/30/19 03/13/21 Q-10) diltiazem HCl 120 mg 120 mg PO BEDTIME 03/30/19 03/13/21 capsule,extended release 24 hr nitroglycerin 0.4 mg/hr 0.4 mg TOPICAL DAILY 03/30/19 03/13/21 transdermal 24 hour patch pravastatin 40 mg tablet 40 mg PO BEDTIME 03/30/19 03/13/21 turmeric 1,000 mg PO DAILY 03/30/19 03/13/21 Previous Rx's Medication Instructions Recorded acetaminophen 325 mg capsule 650 mg PO QID PRN #60 cap 07/25/19 (Tylenol) docusate sodium 100 mg capsule 100 mg PO BID #30 cap 07/25/19 (Colace) ibuprofen 200 mg tablet 800 mg PO Q6H PRN #60 tab 07/25/19 tramadol 50 mg tablet 50 mg PO Q6H PRN #30 tab 07/25/19 Allergies Allergy/AdvReac Type Severity Reaction Status Date / Time simethicone Allergy Mild Diarrhea Verified 05/26/21 11:16 oxycodone [OXYCODONE] AdvReac Mild COMITING, Verified 05/26/21 11:16 HALLUCINATIONS Review of Systems Review of Systems ROS Unobtainable: All systems reviewed & are unremarkable except as noted in HPI and below Patient History Medical History Back pain Johnson's esophagus Edema Enlarged prostate GERD (gastroesophageal reflux disease) Headache, migraine HLD (hyperlipidemia) HTN (hypertension) Neuropathy Prinzmetal angina Skin tear Testicular cancer Surgical History History of carpal tunnel repair (1989) History of cataract removal with insertion of prosthetic lens History of inguinal hernia repair History of knee replacement (2009) History of knee replacement (~2013) History of surgery Status post cholecystectomy (2004) Family History Mother Heart disease Social History household members: spouse Smoking Status: Former smoker alcohol intake: never Smoking Status: Former smoker alcohol intake frequency: 0-2 drinks per day Substance Use Type: does not use Exam Narrative Exam Narrative: GENERAL: Alert and oriented x three, elderly male in mild distress. HEENT: Head normocephalic, atraumatic, EOMI, pupils reactive, face symmetric, moist mucous membranes NECK: Supple, full range of motion CARDIOVASCULAR: Regular rate and rhythm without murmurs, rubs or gallops. RESPIRATORY: Breath sounds equal bilaterally, no wheezes rales or rhonchi. ABDOMEN: Soft, nontender. Normoactive bowel sounds all 4 quadrants. No guarding or rebound, rigidity, no mass : No CVA tenderness EXTREMITIES: Normal range of motion, no clubbing or edema. Neurovascularly intact NEUROLOGICAL: Cranial nerves II through XII grossly intact. Moving all ext remities SKIN: Warm, dry, no petechiae, no rashes or lesions. Initial Vital Signs Initial Vital Signs: Vital Signs Temperature 97.4 F L 05/26/21 11:10 Pulse Rate 76 05/26/21 11:10 Respiratory Rate 14 05/26/21 11:10 Blood Pressure 158/74 H 05/26/21 11:10 Pulse Oximetry 99 05/26/21 11:10 Course Orders Ordered: ED Orders 05/26/21 11:17 XR chest 1V Stat EKG-12 Lead Stat 05/26/21 11:20 BNP [NT-proBNP (BNP-Adult 18+)] Stat COVID19 -Nasal swab/Pre-Proc Stat Complete Blood Count AUTO DIFF Stat Comprehensive Metabolic Panel Stat Lipase Stat Magnesium Stat Partial Thromboplastin Time Stat Prothrombin Time INR Stat Troponin & CK Cardiac Panel Stat 05/26/21 13:21 Troponin I Stat Discontinued Medications Aspirin (Aspirin 81 Mg Chew Tab) 324 mg PO NOW ONE Stop: 05/26/21 11:18 Last Admin: 05/26/21 11:28 Dose: 324 mg Documented by: TOÑO Reevaluation(s) Reevaluation #1: Patient continues to be chest pain-free. Consultations Consultation #1: Dr. Hutchison, cardiology. With 12 hours of chest with negative troponins and EKGs patient is safe to return home from a cardiac standpoint. He can follow up he can continue his regular current medication therapy Time: 14:20 Vital Signs Vital signs: Vital Signs - 8 hr 05/26/21 11:10 05/26/21 11:12 05/26/21 11:15 Temperature 97.4 F L Pulse Rate 76 80 78 Respiratory Rate 14 26 H 25 H Blood Pressure 158/74 H 153/67 H Pulse Oximetry 99 96 97 05/26/21 11:30 05/26/21 11:31 05/26/21 11:45 Temperature Pulse Rate 70 75 67 Respiratory Rate 15 17 Blood Pressure 135/66 134/64 Pulse Oximetry 96 97 95 05/26/21 12:00 05/26/21 12:15 05/26/21 12:30 Temperature Pulse Rate 66 66 66 Respiratory Rate 23 19 19 Blood Pressure 142/68 H 130/65 Pulse Oximetry 95 95 95 05/26/21 12:31 05/26/21 12:45 05/26/21 13:00 Temperature Pulse Rate 65 71 63 Respiratory Rate 20 32 H 12 Blood Pressure 145/65 H 172/83 H Pulse Oximetry 95 96 96 05/26/21 13:16 05/26/21 13:30 05/26/21 13:45 Temperature Pulse Rate 63 63 61 Respiratory Rate 13 11 L 10 L Blood Pressure 127/63 133/72 128/67 Pulse Oximetry 96 96 97 05/26/21 14:00 05/26/21 14:15 05/26/21 14:30 Temperature Pulse Rate 60 62 60 Respiratory Rate 11 L 11 L 14 Blood Pressure 126/65 125/69 127/70 Pulse Oximetry 95 96 97 MDM - Chest Pain Lab Data Result diagrams: 05/26/21 11:20 05/26/21 11:20 Labs: Lab Results 05/26/21 05/26/21 05/26/21 Range/Units 11:20 11:20 11:20 WBC 6.9 (4.5-11.0) X10^3/uL RBC 3.99 L (4.5-5.9) X10^6/uL Hgb 12.0 L (13.5-17.5) g/dL Hct 35.7 L (41-53) % MCV 89.4 (80-100) fL MCH 30.0 (26-34) PG MCHC 33.6 (30-36) % RDW 14.9 H (11.6-14.8) % Plt Count 211 (150-400) X10^3/uL Neut % (Auto) 66.7 (50-75) % Lymph % (Auto) 19.7 L (25-40) % [place] % (Auto) 9.9 (3-14) % Eos % (Auto) 3.2 (2-4) % Baso % (Auto) 0.5 (0-2) % Neut # (Auto) 4600 (6088-3064) /uL Lymph # (Auto) 1300 (3923-2534) /uL [place] # (Auto) 700 (0-900) /uL Eos # (Auto) 200 (0-450) /uL Baso # (Auto) 0 (0-100) /uL PT 10.9 (10.1-12.7) SECONDS INR 1.0 (0.9-1.3) APTT 30 (26.4-36.2) SECONDS Sodium 139 (137-145) mmol/L Potassium 4.2 (3.4-5.1) mmol/L Chloride 106 (98-107) mmol/L Carbon Dioxide 25 (22-32) mmol/L BUN 17 (9-20) mg/dL Creatinine 1.41 H (0.66-1.25) mg/dL Estimated GFR 47.8 L (>60) mL/min BUN/Creatinine Ratio 12.1 (6-22) Glucose 110 (80-110) mg/dL Calcium 9.2 (8.4-10.2) mg/dL Magnesium 2.1 (1.6-2.3) mg/dL Total Bilirubin 0.5 (0.2-1.3) mg/dL AST 24 (17-59) IU/L ALT 19 (<50) IU/L Alkaline Phosphatase 67 (38-126) U/L Total Creatine Kinase 88 (55-170) U/L CK-MB (CK-2) TNP CK-MB (CK-2) Rel Index TNP Troponin I < 0.012 (0.01-0.034) ng/mL NT-Pro-B Natriuret Pep 103 (<450) pg/mL Total Protein 7.6 (6.3-8.2) g/dL Albumin 4.7 (3.5-5.0) g/dL Globulin 2.9 (1.7-4.1) g/dL Albumin/Globulin Ratio 1.6 (1.0-2.8) Lipase 41 (23-300) U/L SARS-CoV-2 (PCR) (Negative) 05/26/21 05/26/21 Range/Units 11:20 13:21 WBC (4.5-11.0) X10^3/uL RBC (4.5-5.9) X10^6/uL Hgb (13.5-17.5) g/dL Hct (41-53) % MCV (80-100) fL MCH (26-34) PG MCHC (30-36) % RDW (11.6-14.8) % Plt Count (150-400) X10^3/uL Neut % (Auto) (50-75) % Lymph % (Auto) (25-40) % [place] % (Auto) (3-14) % Eos % (Auto) (2-4) % Baso % (Auto) (0-2) % Neut # (Auto) (1955-8742) /uL Lymph # (Auto) (4580-7190) /uL [place] # (Auto) (0-900) /uL Eos # (Auto) (0-450) /uL Baso # (Auto) (0-100) /uL PT (10.1-12.7) SECONDS INR (0.9-1.3) APTT (26.4-36.2) SECONDS Sodium (137-145) mmol/L Potassium (3.4-5.1) mmol/L Chloride (98-107) mmol/L Carbon Dioxide (22-32) mmol/L BUN (9-20) mg/dL Creatinine (0.66-1.25) mg/dL Estimated GFR (>60) mL/min BUN/Creatinine Ratio (6-22) Glucose (80-110) mg/dL Calcium (8.4-10.2) mg/dL Magnesium (1.6-2.3) mg/dL Total Bilirubin (0.2-1.3) mg/dL AST (17-59) IU/L ALT (<50) IU/L Alkaline Phosphatase (38-126) U/L Total Creatine Kinase (55-170) U/L CK-MB (CK-2) CK-MB (CK-2) Rel Index Troponin I < 0.012 (0.01-0.034) ng/mL NT-Pro-B Natriuret Pep (<450) pg/mL Total Protein (6.3-8.2) g/dL Albumin (3.5-5.0) g/dL Globulin (1.7-4.1) g/dL Albumin/Globulin Ratio (1.0-2.8) Lipase (23-300) U/L SARS-CoV-2 (PCR) Negative (Negative) Imaging Data Chest x-ray: Radiologist's Impression: Close Chest X-Ray (Signed) Bin Johnson - 05/26/21 Shoulder X-Ray (Signed) Simon Julian - 05/03/[address] (Signed) Nico Hoffman - 07/09/20 Shoulder X-Ray (Signed) Evelio Davis - 05/21/20 Abdomen MRI (Signed) Evelio Davis - 07/12/19 Abdomen/Pelvis CT (Signed) Bakari East - 07/08/[address] (Signed) Nico Hoffman - 04/13/19 Outside DI 04/04/19 Chest X-Ray (Signed) Bin Johnson - 03/30/19 Radiology Report (Cancelled) Olive Hutchison - 04/14/18 Myocardial Perfusion Scan Nuc Med (Signed) Olive Hutchison - 04/11/18 Echocardiogram Ultrasound (Signed) Armen Diamond - 04/11/18 Duplex Scan Lower Extremity Artery (Signed) Evelio Davis - 04/11/18 Cervical Spine MRI (Signed) Vern Schumacher - 12/06/17 Launch?[address] [address] XRay Report Signed Patient: iDallo Herrera MR#: [id number] : 1935 Acct:[id number] Age/Sex: 86 / M Date of Service: 05/26/21 Loc: ED Accession Number: [id number] ?? Procedure: XR chest 1V Ordering Provider: Tess Cedeno D.O. PROCEDURE:? XR CHEST 1V ? INDICATIONS:? chest pain ? TECHNIQUE:? One view of the chest was acquired.? ? COMPARISON:? [facility], CT, CT CHEST WO CON, 07/09/2020, 10:17.? [facility], CR, XR CHEST 1V, 03/30/2019, 12:02. ? FINDINGS:? ? Surgical changes and devices:? None.? ? Lungs and pleura:? An incomplete inspiratory result is noted, causing a crowded appearance to the lung markings.? No focal infiltrates are seen.? No pneumothorax or significant pleural effusions are seen. ? ? Mediastinum:? Mediastinal contours appear normal.? Heart size is normal.? Atherosclerotic calcification of the aortic arch is noted.? ? Bones and chest wall:? No suspicious bony lesions.? Age-appropriate bony degenerative changes are seen.? ? Overlying soft tissues appear unremarkable.? IMPRESSION:? Unremarkable portable chest for age.? ? ? Dictated by: Bin Johnson M.D. on 05/26/2021 at 10:34 ? ? Approved by: Bin Johnson M.D. on 05/26/2021 at 10:35? ECG Data Attestation: I personally reviewed and interpreted this ECG as follows: Prior ECG tracings: available for review Interpretation: Sinus rhythm, left axis deviation, left bundle-branch block. Rate of 77, IL 180 QRS of 130 QTC 477. No acute changes compared to prior EKG from 03/30/2019. EKG 2. Shows sinus rhythm left bundle-branch block with a rate of 61 [place] 188 QRS of [address] No acute ST elevation depression noted. No acute changes from EKG part earlier today or on past EKGs. MDM Narrative Medical decision making narrative: This is an 86-year-old male comes with complaint of chest pain with no Prinzmetal's angina. Patient does not have any acute EKG changes with negative troponin x2 after 12 hours of symptoms. No other acute causes found for his pain at this time. Discussed with his cardiology team, Dr. Hutchison who recommends discharge home and follow-up with office. His suspicion is less likely to be cardiac in this patient's situation. 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 Call for an appointment. Please continue home medications as prescribed. Please return for fevers, new chest pain or shortness of breath, persistent vomiting, changes in patterns or chest pain, diaphoresis, new swelling of extremities or other new or concerning symptoms. Prescriptions: No Action omeprazole 40 MG capsule,delayed release(DR/EC) 40 mg PO DAILY Qty: 0 0RF multivitamin Tablet 1 tab PO DAILY Qty: 0 0RF aspirin 81 MG tablet,delayed release (DR/EC) 81 mg PO BEDTIME Qty: 0 0RF pravastatin 40 mg tablet 40 mg PO BEDTIME 0RF nitroglycerin 0.4 mg/hr patch 24 hour 0.4 mg topical DAILY 0RF diltiazem HCl 120 mg capsule,extended release 24hr 120 mg PO BEDTIME 0RF Label Comments: take 1 capsule by mouth once daily coenzyme Q10 [Co Q-10] 100 mg Capsule 300 mg PO DAILY 0RF cholecalciferol (vitamin D3) [Vitamin D3] 2,000 unit Tablet 2,000 unit PO DAILY 0RF Benefiber Powder 2 tsp PO DAILY 0RF Boswellia 500 MG 500 mg PO DAILY 0RF Chondroitin Sulfate 1,200 mg 1,200 mg PO DAILY 0RF Glucosamine 1,500 mg PO DAILY 0RF Antimony 3 Fatty Acids-Vitamin E 1,000 mg 1,000 mg PO DAILY 0RF Vitamin B-12 1 tab PO DAILY 0RF turmeric 1,000 MG 1,000 mg PO DAILY 0RF tramadol 50 mg tablet 50 mg PO Q6H PRN (Reason: pain) Qty: 30 0RF ibuprofen 200 mg tablet 800 mg PO Q6H PRN (Reason: pain) Qty: 60 0RF docusate sodium [Colace] 100 mg capsule 100 mg PO BID Qty: 30 0RF acetaminophen [Tylenol] 325 mg capsule 650 mg PO QID PRN (Reason: pain) Qty: 60 0RF Referrals: Dionisio Anderson MD [Primary Care Provider] -
[2021-05-26 13:51] LABS: Troponin I < 0.012 ng/mL (0.01-0.034)
== END 2021-05-26 14:52 | disposition home or self-care (01) ==
PROVIDERS: Emergency Provider Emergency Medicine; Family Provider Family Medicine; PCP Family Medicine
DX: R07.9 Chest pain, unspecified (principal); Z20.822 Contact with and (suspected) exposure to COVID-19
CPT/HCPCS: 36415; 71045; 80053; 82550; 83690; 83735; 83880; 84484; 85025; 85610; 85730; 87635; 93005; 93010; 99284; C9803

== ENCOUNTER → 2021-05-29 12:39 | Outpatient (CLI) | payer MEDICARE, BC, SELFPAY ==
--- NOTE | 2021-05-29 12:45 | DI.MRI.S_ITS ---
PROCEDURE: MR CERVICAL SPINE WO CON INDICATIONS: Pain TECHNIQUE: Noncontrast sagittal T1 spin echo and T2 fast spin echo, sagittal STIR, foraminal oblique sagittal T2 fast spin echo, and axial gradient echo or T2 fast spin echo through the cervical spine. COMPARISON: [facility], MR, MR CERVICAL SPINE WO CON, 12/06/2017, 14:27. FINDINGS: Image quality: Excellent. Alignment and Curvature: There is normal bony alignment. Bone Marrow: Marrow demonstrates normal overall signal. Spinal Cord: Visualized spinal cord has normal size and signal. No cerebellar tonsillar herniation. Paraspinous Soft Tissues: No paravertebral masses. Prevertebral soft tissues are normal in thickness. C2-C3: Moderate disc space narrowing and posterior disc osteophyte complex results in moderate central stenosis with flattening the ventral surface of the cord. Moderate bilateral foraminal stenosis present. C3-C4: Moderate disc space narrowing with posterior disc osteophyte complex again results in moderate central stenosis with flattening the ventral surface of the cord. Severe right and moderate left foraminal stenosis present. C4-C5: Disc space narrowing with posterior disc osteophyte complex results in moderate central stenosis with flattening the ventral surface of the cord. Moderate bilateral foraminal stenosis present. C5-C6: Disc space narrowing with posterior disc osteophyte complex and hypertrophic facet joints results in mild to moderate central stenosis with flattening the ventral surface of the cord. Moderate bilateral foraminal stenosis present. C6-C7: Disc space narrowing with posterior disc osteophyte complex results in mild central and mild bilateral foraminal stenosis. C7-T1: Disc height is preserved. No central or foraminal stenosis. IMPRESSION: 1. Multilevel degenerative disc disease and arthropathy results in varying degrees of central and foraminal stenosis including moderate central stenosis with cord flattening at C2-3, C3-4, C4-5 and to a lesser degree at C5-6 Approved by: Adolfo Zazueta M.D. on 05/29/2021 at 15:56
== END ==
PROVIDERS: Family Provider Family Medicine; PCP Family Medicine; Referring Provider Family Medicine; Visit Provider Family Medicine
DX: M50.31 Other cervical disc degeneration, high cervical region (principal); M48.02 Spinal stenosis, cervical region; M47.812 Spondylosis without myelopathy or radiculopathy, cervical region
CPT/HCPCS: 72141

== ENCOUNTER → 2021-06-30 11:05 | Outpatient (CLI) | payer MEDICARE, BC, SELFPAY ==
[2021-06-30 13:31] LABS: COVID19 -Nasal RAPID Negative (Negative)
== END ==
PROVIDERS: Family Provider Family Medicine; PCP Family Medicine; Visit Provider Surgery
DX: Z20.822 Contact with and (suspected) exposure to COVID-19 (principal)
CPT/HCPCS: 87635; C9803

== ENCOUNTER 2021-07-01 13:25 | Day surgery (SDC) | payer MEDICARE, BC, SELFPAY ==
[2021-06-27 12:40] VITALS: BMI 33.1
[2021-07-01] VITALS (11 sets, daily range): BP systolic 100–153; BP diastolic 42–102; PULSE 61–88; RESP 14–18; TEMP 36.2–37.3; O2SAT 68–98; BMI 33.4
--- NOTE | 2021-07-01 | DI.RAD.S_ITS ---
PROCEDURE: XR CHEST 1V INDICATIONS: sob TECHNIQUE: One view of the chest was acquired. COMPARISON: [facility], CR, XR CHEST 1V, 05/26/2021, 11:18. FINDINGS: Surgical changes and devices: None. Lungs and pleura: Reduced lung volumes with bibasilar atelectasis. No consolidation, pleural effusions or pneumothorax. Mediastinum: Mediastinal contours appear normal. Heart size is normal. Bones and chest wall: No suspicious bony lesions. Overlying soft tissues appear unremarkable. IMPRESSION: Bibasilar atelectasis. Dictated by: Mesfin Kennedy M.D. on 07/01/2021 at 17:53 Approved by: Mesfin Kennedy M.D. on 07/01/2021 at 17:54
--- NOTE | 2021-07-01 14:44 | PM.HP.1 ---
History of Present Illness History of Present Illness Date Patient Seen: 07/01/21 Chief complaint: SDC Narrative: 86-year-old man here for an elective open left inguinal hernia repair. No interval changes in health. Patient History Medical History Back pain Johnson's esophagus Edema Enlarged prostate GERD (gastroesophageal reflux disease) Headache, migraine HLD (hyperlipidemia) HTN (hypertension) Neuropathy Prinzmetal angina Skin tear Testicular cancer Surgical History History of carpal tunnel repair (1989) History of cataract removal with insertion of prosthetic lens History of inguinal hernia repair History of knee replacement (2009) History of knee replacement (~2013) History of surgery Hx of right inguinal hernia repair (07/25/19) Status post cholecystectomy (2004) Family & Social History Family History Mother Heart disease Social History: household members spouse Tobacco & Substance use: Tobacco type cigarettes,pipe,cigars Smoking Status Former smoker alcohol intake never alcohol intake frequency 0-2 drinks per day Substance Use Type does not use Meds Home Medications and Allergies Home Medications Medication Instructions Recorded Confirmed Type omeprazole 40 mg capsule,delayed 40 mg PO DAILY #0 06/24/11 07/01/21 History release aspirin 81 mg tablet,delayed 81 mg PO BEDTIME #0 01/21/12 07/01/21 History release multivitamin 1 tab PO DAILY #0 01/21/12 07/01/21 History Benefiber Powder 2 tsp PO DAILY 03/30/19 07/01/21 History Boswellia 500 mg PO DAILY 03/30/19 07/01/21 History Chondroitin Sulfate 1,200 mg PO DAILY 03/30/19 07/01/21 History Vitamin B-12 1 tab PO DAILY 03/30/19 07/01/21 History cholecalciferol (vitamin D3) 50 2,000 unit PO DAILY 03/30/19 07/01/21 History mcg (2,000 unit) tablet (Vitamin D3) coenzyme Q10 100 mg capsule (Co 300 mg PO DAILY 03/30/19 07/01/21 History Q-10) diltiazem HCl 120 mg 120 mg PO BEDTIME 03/30/19 07/01/21 History capsule,extended release 24 hr nitroglycerin 0.4 mg/hr 0.4 mg TOPICAL DAILY 03/30/19 07/01/21 History transdermal 24 hour patch omega-3 fatty acids-fish oil 340 1 cap PO DAILY #0 03/30/19 07/01/21 History mg-1,000 mg capsule (Fish Oil) turmeric 450 mg PO DAILY 03/30/19 07/01/21 History acetaminophen 325 mg capsule 650 mg PO QID PRN #60 cap 07/25/19 07/01/21 Rx (Tylenol) docusate sodium 100 mg capsule 100 mg PO BID #30 cap 07/25/19 07/01/21 Rx (Colace) ibuprofen 200 mg tablet 800 mg PO Q6H PRN #60 tab 07/25/19 07/01/21 Rx tramadol 50 mg tablet 50 mg PO Q6H PRN #30 tab 07/25/19 07/01/21 Rx amitriptyline 25 mg tablet 25 mg PO DAILY 06/02/21 07/01/21 History melatonin 5 mg tablet 10 mg PO BEDTIME 06/02/21 07/01/21 History ranolazine 500 mg tablet,extended 500 mg PO BID 06/02/21 07/01/21 History release,12 hr (Ranexa) rosuvastatin 20 mg tablet 20 mg PO DAILY 06/02/21 07/01/21 History Allergies Allergy/AdvReac Type Severity Reaction Status Date / Time simethicone Allergy Mild Diarrhea Verified 07/01/21 14:17 oxycodone [OXYCODONE] AdvReac Mild COMITING, Verified 07/01/21 14:17 HALLUCINATIONS Exam Narrative Exam Narrative: General adult man alert oriented no acute distress Chest nonlabored respirations Abdomen soft left inguinal hernia marked with my initials on his hip Assessment & Plan Assessment and plan (1) Left inguinal hernia: Status: Acute Assessment & Plan narrative: 86-year-old man with a reducible left inguinal hernia here for elective open repair. Operative details were discussed. Operative risks including bleeding, infection, recurrence, chronic pain, damage to surrounding structures. Questions have been answered he is in agreement with this plan. Time Spent With Patient Critical Care time: I spent a total of [] minutes of critical care time on this patient's care today; this time is exclusive of procedural time.
[2021-07-01] MEDS: LACTATED RINGERS 1,000 ML 100 ML IV ×2 (14:46→16:37)
[2021-07-01] MEDS: ACETAMINOPHEN 325 MG TABLET 975 MG PO (15:07)
[2021-07-01] MEDS: CEFAZOLIN 2 GM/20 ML SYRINGE IV (15:45)
--- NOTE | 2021-07-01 15:57 | SUR.OPER ---
Supine on padded OR bed, head on pillow, Wedge below upper body, arms secured on padded arm boards at <90 degrees abduction, legs uncrossed, safety belt at thigh, tape over blanket over lower legs. as directed by Surgeon
[2021-07-01] MEDS: BUPIVACAINE 0.25% (PF) VIAL 30 ML INJ (16:03)
--- NOTE | 2021-07-01 16:48 | PM.OP.1 ---
Operative Date/Time/Diagnoses Date of procedure: 07/01/21 Time of procedure: 16:48 Pre-op diagnosis: hx of left testicular cancer left inguinal hernia Post-op diagnosis: same Procedure & Clinicians Procedure: open left inguinal hernia repair Same procedure as scheduled: Yes Indications: reducible left inguinal hernia Surgeon: Cade Waite Click Yes if Unassisted: Yes Anesthesia Type: General Operative Notes Findings: Direct floor defect. No spermatic cord Specimen(s): none sent Estimated Blood Loss (mL): 20 Procedure in detail: The patient was placed supine on the table and bilateral lower extremity compression devices were applied. Anesthesia was induced they were intubated with an LMA and received Clindamycin. A time-out was performed. They were prepped and draped in sterile fashion. The left external inguinal ring and the anterior superior iliac crest were identified and marked. 1 finger breath above the inguinal ligament the skin was infiltrated with 0.25% bupivacaine. The skin incision was made here and the subcutaneous tissues were divided with electrocautery exposing the external oblique aponeurosis which was then opened along the direction of its fibers. The inguinal how was quite scarred from his previous left orchiectomy and lymph node dissection. A Direct floor defect was identified and it was reduced into the abdomen. Over a plug of mesh and the internal oblique aporneuorsis was approximated to the inguinal ligament with Ethibond suture to reapproximate the floor. There was no spermatic cord. selected a 7x 15 cm lightweight Pro Loop hernia mesh. The inferior medial aspect of the mesh was anchored to insertion of the rectus muscle to the pubic tubercle such that there was approximately 2 cm of tubercle overlap with Ethibond and then was run continuously along the inferior edge of the mesh to the shelving edge of the inguinal ligament. Interrupted 3 0 Vicryl suture was used to anchor the superior aspect of the mesh to the conjoined tendon in several places. The repair was checked for hemostasis. The wound was irrigated with sterile saline. The external oblique aponeurosis was reapproximated in a running fashion using 3 0 Vicryl. The subcutaneous tissues were reapproximated with 3 0 Vicryl skin closed with 4 0 Monocryl followed by the application of Dermabond. The sponge instrument count at the end operation was correct. The patient emerged from anesthesia was extubated and transferred to the postoperative care unit in stable condition. A total of 30 ml of of 0.25% bupivicaine was used to infiltrate the skin. Complications: none Post-operative Condition: stable Disposition: same day surgery
--- NOTE | 2021-07-01 17:10 | SUR.PHASEI ---
Addendum entered by Alexandra Davis R.N. 07/01/21 17:13: Dr. Hauser was with pt during this episode. Original Note: pt arrived to PACU with an O2 sat of 65% and we inserted an oral airway. Suctioned pt and applied oxygen to pt. via simple mask . Suctioned pt for thick frothy secretons. Pt was placed on O2 at 15 liters and now pt has airway removed and is on O2 at 4 liters. Lungs are clear and pt is not producing secretions. Pt respirations even and unlabored. No distress noted.
--- NOTE | 2021-07-01 17:25 | SUR.PHASEI ---
Pt had some fine crackles and had Dr. Hauser come and assess pt. Dr. Hauser ordered a chest x-ray for pt. Pt denies sob.
--- NOTE | 2021-07-01 17:29 | SUR.PHASEI ---
Report given to Mendy MEIER.
== END 2021-07-01 18:30 | disposition home or self-care (01) ==
PROVIDERS: Family Provider Family Medicine; PCP Family Medicine; Referring Provider Surgery; Visit Provider Surgery
PROC: (CPT 49505; principal; 2021-07-01 14:30)
DX: K40.90 Unilateral inguinal hernia, without obstruction or gangrene, not specified as recurrent (principal); K22.70 Barrett's esophagus without dysplasia; I10 Essential (primary) hypertension; E78.5 Hyperlipidemia, unspecified; I25.10 Atherosclerotic heart disease of native coronary artery without angina pectoris
CPT/HCPCS: 49505; 71045; 82962; J0330; J0690; J1100; J2704; J3010

== ENCOUNTER 2023-12-01 15:15 | Outpatient (RCR) | payer MEDICARE, BC, SELFPAY ==
--- NOTE | 2023-10-13 10:30 | PT.OPPOC ---
Physical, Occupational & Speech Therapy At [facility] Current Diagnoses Unsteadiness on feet (10/13/23) Other abnormalities of gait and mobility (10/13/23) Repeated falls (10/13/23) Other symptoms and signs involving the musculoskeletal system (10/13/23) Visit Care Team Role Provider Type Dionisio Anderson MD Attending Provider Physician Family Provider Primary Care Provider Referring Provider Specialty: Family Practice Address: [address] [place] [address] [place], [facility] Email: [email or web address] Plan Of Care PT-OP-B Current Condition Start: 10/13/23 16:33 Freq: Status: Active Protocol: Document 10/13/23 09:45 DCW (Rec: 10/14/23 10:04 DCW [id number]) Current Condition History of Current Condition Onset Date Multi-year history Current Complaints Poor balance, deconditioning, neuropathy History of Current Condition Pt is an 88 year old male presenting with poor balance and gait difficulty. Pt was seen at the [facility] public balance screening two months ago, and at that time, it was recommended that he get a referral for therapy due to poor performance. 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 Notes no related injuries with the falls. Additionally, pt had a right TKA in 2008, reports that at the time, he went through PT, but that his knee hardware got broken, and now his right foot turns out a bit. PT-OP-T Assessment and Plan Start: 10/13/23 16:33 Freq: Status: Active Protocol: Document 10/13/23 09:45 DCW (Rec: 10/14/23 10:04 DCW [id number]) Physical Therapy Assessment Rehab Potential Rehabilitation Potential Fair Evaluation Complexity Number of Personal Factors/Comorbidities 3 or More Number of Body Systems Impaired 4 or More Clinical Presentation at Evaluation Unstable Impairments Impairments Activity Tolerance,Balance, Functional Activities, Functional Mobility,Gait,Soft Tissue Mobility,Strength Other Concerns Fall Risk High falls risk, per Cabrera (34/ 56) and DGI (12/15) scores Goals Three Impairment Pt displays B hip weakness, especially flexion (3+/5) and abduction (4-/5) Long-Term Goal (LTG) Pt to demonstrate MMT of at least 4/5 in bilateral hips in order to improve stability and gait tolerance LTG Duration 12/13/23 Two Impairment Pt presents with a signifcant increased risk of falls, per Cabrera and DGI Digital Pre Press Operator Goal (LTG) Pt to improve DGI score by at least 6 points to 1624 in order to exhibit decreased falls risk LTG Duration 12/13/23 One Impairment Pt does not have an appropriate home exercise program Short Term Goal (STG) Pt to be independent and compliant with an appropriate HEP STG Duration 11/13/23 Assessment Summary Assessment Pt presents with signs and symptoms consistent with referring diagnosis. Pt displays a fairly significant increased risk of falls, per score on Cabrera (34/56) and DGI (12/15). Pt additionally demonstrates bilateral hip weakness, and has known neuropathy, negatively affecting his proprioception. Pt should benefit from skilled therapy focusing on balance challenges, gait training, LE strengthening, and improving activity tolerance. Physical Therapy Plan Frequency and Duration Frequency of Treatment 2x/Week Plan of Care Start Date 10/13/23 Plan of Care End Date 12/13/23 Therapeutic Interventions Therapeutic Interventions Balance Training,Coordination Training,Gait Training,Home Exercise Program,Joint Mobilizations,Manual Therapy, Neuromuscular Re-education, Patient/Caregiver Education, Self-Care/Home Management,Soft Tissue Mobilization, Therapeutic Activities, Therapeutic Exercises Next Visit Focus/Plan Next Note Type Treatment Note Next Visit Plan LE strengthening, static/ dynamic balance challenges Plan of Care Dates Plan of Care Start Date 10/13/23 Plan of Care End Date 12/13/23 Electronically Signed by: Lokesh Solitario, PT 10/14/23 1004 If you are in agreement with this Plan of Care, please return a signed and dated copy. I have reviewed this Plan of Care and certify that the skilled therapy services above are required to meet the patient?s needs. Physician Signature Date Printed Name and Credentials Clinical Instructor Signature Printed Name and Credentials
--- NOTE | 2023-10-13 10:30 | PT.OIE ---
Current Diagnoses Unsteadiness on feet (10/13/23) Other abnormalities of gait and mobility (10/13/23) Repeated falls (10/13/23) Other symptoms and signs involving the musculoskeletal system (10/13/23) Past Medical History (Last Updated 07/22/22 @ 12:37 by Tad Foster MD) Back pain Johnson's esophagus Edema Enlarged prostate GERD (gastroesophageal reflux disease) Headache, migraine History of kidney stones History of primary malignant neoplasm of testis History of tobacco use HLD (hyperlipidemia) HTN (hypertension) Neuropathy Nocturia Overactive bladder Prinzmetal angina Skin tear Testicular cancer Urge incontinence Past Surgical History (Last Reviewed 06/04/22 @ 12:47 by Tad Foster MD) History of carpal tunnel repair (1989) History of cataract removal with insertion of prosthetic lens History of inguinal hernia repair History of knee replacement (2009) History of knee replacement (~2013) History of surgery Hx of right inguinal hernia repair (07/25/19) Status post cholecystectomy (2004) Visit Care Team Role Provider Type Dionisio Anderson MD Attending Provider Physician Family Provider Primary Care Provider Referring Provider Specialty: [facility] Address: [address] [place] [address], [facility] Email: [email or web address] Physical Therapy Initial Evaluation PT-OP-A Visit Information Start: 10/13/23 16:33 Freq: Status: Active Protocol: Document 10/13/23 09:45 DCW (Rec: 10/13/23 16:42 DCW [id number]) Out-Patient Physical Therapy Visit Information Visit Information Visit Type Initial Evaluation Visit Start Time 09:45 Visit Stop Time 10:30 Visit Number 1 Number of CRISIS CLINICIAN Visits 0 Evaluation Information Evaluation Date 10/13/23 PT-OP-B Current Condition Start: 10/13/23 16:33 Freq: Status: Active Protocol: Document 10/13/23 09:45 DCW (Rec: 10/14/23 10:04 DCW [id number]) Current Condition History of Current Condition Onset Date Multi-year history Current Complaints Poor balance, deconditioning, neuropathy History of Current Condition Pt is an 88 year old male presenting with poor balance and gait difficulty. Pt was seen at the [facility] public balance screening two months ago, and at that time, it was recommended that he get a referral for therapy due to poor performance. Pt has had a few recent falls, reports one happened missing a step when trying to step up a curb, and another occurred when trying to cook pickled meat a mini fridge. Notes no related injuries with the falls. Additionally, pt had a right TKA in 2008, reports that at the time, he went through PT, but that his knee hardware got broken, and now his right foot turns out a bit. PT-OP-C Subjective Start: 10/13/23 16:33 Freq: Status: Active Protocol: Document 10/13/23 09:45 DCW (Rec: 10/13/23 16:42 DCW [id number]) OP-PT Subjective Patient Comments Patient Comments I don't know where my feet are most of the time. Patient Reported Progress Same Patient Questionnaires ABC- Activity Specific Balance Confidence Scale ABC Score 53.13% ABC Functional Impairment 40 to <60% Impaired (Score 41- 60) PT-OP-D Balance Start: 10/13/23 16:33 Freq: Status: Active Protocol: Document 10/13/23 09:45 DCW (Rec: 10/13/23 16:42 DCW [id number]) Balance Tests Cabrera Balance Test Cabrera Balance Test Score 34/56 Cabrera Balance Assessment Evaluation Sitting to Standing Ability Independent w/Hands Unsupported Stance Supervision- 2 minutes Sitting Unsupported, Feet on Floor Safely- 2 minutes Standing to Sitting Ability Assist, Control w/Hands Transfer Ability Safely, Hand Use Unsupported Stance- Eyes Closed 3 seconds Unsupported Stance- Eyes Open Independent, <30 seconds Reaching Forward Standing Safely, 5 inches Pick- Up Object From Floor Supervision Look Behind Shoulder - Standing Supervision w/Turning Turning 360 Degrees Turns slowly, but safely Unsupported Stance, Alternating Feet on 4 Steps w/Supervision Stair Unsupported Tandem Stance Small Step- 30 seconds Unilateral Leg Stance Lifts Leg/Unable to Hold Total Score Cabrera Total Score (out of 56 points) 34 Cabrera Impairment Rating 20 to 39% Impaired (Score 34- 44) PT-OP-E Functional Tests Start: 10/13/23 16:33 Freq: Status: Active Protocol: Document 10/13/23 09:45 DCW (Rec: 10/13/23 16:42 DCW [id number]) Functional Tests Dynamic Gait Index (DGI) Score 12/15 PT-OP-M Strength Start: 10/13/23 16:33 Freq: Status: Active Protocol: Document 10/13/23 09:45 DCW (Rec: 10/13/23 16:42 DCW [id number]) Hip Strength Hip Manual Muscle Testing Right Flexion (L2) 3+ Fair+ Extension (S1) 4- Good- Abduction 4- Good- Adduction 4 Good External Rotation 4 Good Internal Rotation 4- Good- Left Flexion (L2) 3+ Fair+ Extension (S1) 4 Good Abduction 4- Good- Adduction 4 Good External Rotation 4 Good Internal Rotation 4- Good- Knee Strength Knee Manual Muscle Testing Right Flexion (S2) 4+ Good+ Extension (L3) 4+ Good+ Left Flexion (S2) 4+ Good+ Extension (L3) 4+ Good+ Ankle/Foot Strength Ankle and Foot Manual Muscle Testing Right Dorsiflexion (L4) 4 Good Left Dorsiflexion (L4) 4 Good PT-OP-T Assessment and Plan Start: 10/13/23 16:33 Freq: Status: Active Protocol: Document 10/13/23 09:45 DCW (Rec: 10/14/23 10:04 DCW [id number]) Physical Therapy Assessment Rehab Potential Rehabilitation Potential Fair Evaluation Complexity Number of Personal Factors/Comorbidities 3 or More Number of Body Systems Impaired 4 or More Clinical Presentation at Evaluation Unstable Impairments Impairments Activity Tolerance,Balance, Functional Activities, Functional Mobility,Gait,Soft Tissue Mobility,Strength Other Concerns Fall Risk High falls risk, per Cabrera (34/ 56) and DGI (12/15) scores Goals Three Impairment Pt displays B hip weakness, especially flexion (3+/5) and abduction (4-/5) Mcfp Goal (LTG) Pt to demonstrate MMT of at least 4/5 in bilateral hips in order to improve stability and gait tolerance LTG Duration 12/13/23 Two Impairment Pt presents with a significant increased risk of falls, per Cabrera and DGI Mcfp Goal (LTG) Pt to improve DGI score by at least 6 points to in order to exhibit decreased falls risk LTG Duration 12/13/23 One Impairment Pt does not have an appropriate home exercise program Short Term Goal (STG) Pt to be independent and compliant with an appropriate HEP STG Duration 11/13/23 Assessment Summary Assessment Pt presents with signs and symptoms consistent with referring diagnosis. Pt displays a fairly significant increased risk of falls, per score on Cabrera (34/56) and DGI (12/15). Pt additionally demonstrates bilateral hip weakness, and has known neuropathy, negatively affecting his proprioception. Pt should benefit from skilled therapy focusing on balance challenges, gait training, LE strengthening, and improving activity tolerance. Physical Therapy Plan Frequency and Duration Frequency of Treatment 2x/Week Plan of Care Start Date 10/13/23 Plan of Care End Date 12/13/23 Therapeutic Interventions Therapeutic Interventions Balance Training,Coordination Training,Gait Training,Home Exercise Program,Joint Mobilizations,Manual Therapy, Neuromuscular Re-education, Patient/Caregiver Education, Self-Care/Home Management,Soft Tissue Mobilization, Therapeutic Activities, Therapeutic Exercises Next Visit Focus/Plan Next Note Type Treatment Note Next Visit Plan LE strengthening, static/ dynamic balance challenges
--- NOTE | 2023-10-18 12:03 | PT.OTN ---
Current Diagnoses Unsteadiness on feet (10/18/23) Other abnormalities of gait and mobility (10/18/23) Repeated falls (10/18/23) Other symptoms and signs involving the musculoskeletal system (10/18/23) Physical Therapy Treatment Note PT-OP-A Visit Information Start: 10/13/23 16:33 Freq: Status: Active Protocol: Document 10/18/23 11:15 DCW (Rec: 10/18/23 12:03 DCW [id number]) Out-Patient Physical Therapy Visit Information Visit Information Visit Type Treatment Note Visit Start Time 11:15 Visit Stop Time 12:00 Visit Number 2 Number of BRIMMING MACHINE OPERATOR Visits 0 Evaluation Information Evaluation Date 10/13/23 PT-OP-B Current Condition Start: 10/13/23 16:33 Freq: Status: Active Protocol: Document 10/13/23 09:45 DCW (Rec: 10/14/23 10:04 DCW [id number]) Current Condition History of Current Condition Onset Date Multi-year history Current Complaints Poor balance, deconditioning, neuropathy History of Current Condition Pt is an 88 year old male presenting with poor balance and gait difficulty. Pt was seen at the [facility] public balance screening two months ago, and at that time, it was recommended that he get a referral for therapy due to poor performance. 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 Notes no related injuries with the falls. Additionally, pt had a right TKA in 2008, reports that at the time, he went through PT, but that his knee hardware got broken, and now his right foot turns out a bit. PT-OP-C Subjective Start: 10/13/23 16:33 Freq: Status: Active Protocol: Document 10/18/23 11:15 DCW (Rec: 10/18/23 12:03 DCW [id number]) OP-PT Subjective Patient Comments Patient Comments Well, I fell in the bathroom the other day. I didn't seem to hurt myself. Reports he was trying to put things in a low cabinet, dropped something , tried to pick it up, and ended up on the floor. PT-OP-D Balance Start: 10/13/23 16:33 Freq: Status: Active Protocol: Document 10/13/23 09:45 DCW (Rec: 10/13/23 16:42 DCW [id number]) Balance Tests Cabrera Balance Test Cabrera Balance Test Score 34/56 Cabrera Balance Assessment Evaluation Sitting to Standing Ability Independent w/Hands Unsupported Stance Supervision- 2 minutes Sitting Unsupported, Feet on Floor Safely- 2 minutes Standing to Sitting Ability Assist, Control w/Hands Transfer Ability Safely, Hand Use Unsupported Stance- Eyes Closed 3 seconds Unsupported Stance- Eyes Open Independent, <30 seconds Reaching Forward Standing Safely, 5 inches Pick- Up Object From Floor Supervision Look Behind Shoulder - Standing Supervision w/Turning Turning 360 Degrees Turns slowly, but safely Unsupported Stance, Alternating Feet on 4 Steps w/Supervision Stair Unsupported Tandem Stance Small Step- 30 seconds Unilateral Leg Stance Lifts Leg/Unable to Hold Total Score Cabrera Total Score (out of 56 points) 34 Cabrera Impairment Rating 20 to 39% Impaired (Score 34- 44) PT-OP-E Functional Tests Start: 10/13/23 16:33 Freq: Status: Active Protocol: Document 10/13/23 09:45 DCW (Rec: 10/13/23 16:42 DCW [id number]) Functional Tests Dynamic Gait Index (DGI) Score 12/15 PT-OP-M Strength Start: 10/13/23 16:33 Freq: Status: Active Protocol: Document 10/13/23 09:45 DCW (Rec: 10/13/23 16:42 DCW [id number]) Hip Strength Hip Manual Muscle Testing Right Flexion (L2) 3+ Fair+ Extension (S1) 4- Good- Abduction 4- Good- Adduction 4 Good External Rotation 4 Good Internal Rotation 4- Good- Left Flexion (L2) 3+ Fair+ Extension (S1) 4 Good Abduction 4- Good- Adduction 4 Good External Rotation 4 Good Internal Rotation 4- Good- Knee Strength Knee Manual Muscle Testing Right Flexion (S2) 4+ Good+ Extension (L3) 4+ Good+ Left Flexion (S2) 4+ Good+ Extension (L3) 4+ Good+ Ankle/Foot Strength Ankle and Foot Manual Muscle Testing Right Dorsiflexion (L4) 4 Good Left Dorsiflexion (L4) 4 Good PT-OP-Q Treatments Start: 10/13/23 16:33 Freq: Status: Active Protocol: Document 10/18/23 11:15 DCW (Rec: 10/18/23 12:03 DCW [id number]) Cardio Equipment Recumbent Elliptical (Biodex) Duration (Minutes) 6 Resistance 4 Seat Position 11 Gym Equipment Shuttle Recovery Unilateral Squats Resistance 37# Bilateral Squats Resistance 62# Therapeutic Exercises Standing Exercises Hip Extension Standing Exercise Name Hip Extension Side bilateral Resistance Lv 2 loop Other Exercises Resisted Ambulation Other Exercise Name Resisted Side-stepping Resistance Lv 2 loop Neuro Re-Education Treatment Balance Activities Hurdles Details Hurdles Equipment // bars Comments Fwd, Side-stepping Tandem Details Tandem Stance Equipment // bars Foam Details WBOS Surface AirEx Equipment // bars Comments EO/EC PT-OP-T Assessment and Plan Start: 10/13/23 16:33 Freq: Status: Active Protocol: Document 10/18/23 11:15 DCW (Rec: 10/18/23 12:03 DCW [id number]) Physical Therapy Assessment Impairments Impairments Activity Tolerance,Balance, Functional Activities, Functional Mobility,Gait,Soft Tissue Mobility,Strength Goals Three Impairment Pt displays B hip weakness, especially flexion (3+/5) and abduction (4-/5) Mcc Goal (LTG) Pt to demonstrate MMT of at least 4/5 in bilateral hips in order to improve stability and gait tolerance LTG Duration 12/13/23 Two Impairment Pt presents with a signifcant increased risk of falls, per Cabrera and DGI Mcc Goal (LTG) Pt to improve DGI score by at least 6 points to in order to exhibit decreased falls risk LTG Duration 12/13/23 One Impairment Pt does not have an appropriate home exercise program Short Term Goal (STG) Pt to be independent and compliant with an appropriate HEP STG Duration 11/13/23 Assessment Summary Assessment Good response to treatment today, pt noted that he felt like everything was a good workout and appropriate for his areas of weakness. Continue to focus on hip strengthening and balance challenges. Physical Therapy Plan Frequency and Duration Frequency of Treatment 2x/Week Plan of Care Start Date 10/13/23 Plan of Care End Date 12/13/23 Therapeutic Interventions Therapeutic Interventions Balance Training,Coordination Training,Gait Training,Home Exercise Program,Joint Mobilizations,Manual Therapy, Neuromuscular Re-education, Patient/Caregiver Education, Self-Care/Home Management,Soft Tissue Mobilization, Therapeutic Activities, Therapeutic Exercises Next Visit Focus/Plan Next Note Type Treatment Note Next Visit Plan LE strengthening, static/ dynamic balance challenges
--- NOTE | 2023-10-20 16:26 | PT.OTN ---
Current Diagnoses Unsteadiness on feet (10/20/23) Other abnormalities of gait and mobility (10/20/23) Repeated falls (10/20/23) Other symptoms and signs involving the musculoskeletal system (10/20/23) Physical Therapy Treatment Note PT-OP-A Visit Information Start: 10/13/23 16:33 Freq: Status: Active Protocol: Document 10/20/23 10:28 AB (Rec: 10/20/23 16:26 AB [id number]) Out-Patient Physical Therapy Visit Information Visit Information Visit Type Treatment Note Visit Start Time 13:04 Visit Stop Time 13:46 Visit Number 3 Number of STATE SUPERINTENDENT OF SCHOOLS Visits 1 Evaluation Information Evaluation Date 10/13/23 PT-OP-B Current Condition Start: 10/13/23 16:33 Freq: Status: Active Protocol: Document 10/13/23 09:45 DCW (Rec: 10/14/23 10:04 DCW [id number]) Current Condition History of Current Condition Onset Date Multi-year history Current Complaints Poor balance, deconditioning, neuropathy History of Current Condition Pt is an 88 year old male presenting with poor balance and gait difficulty. Pt was seen at the [facility] public balance screening two months ago, and at that time, it was recommended that he get a referral for therapy due to poor performance. 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 Notes no related injuries with the falls. Additionally, pt had a right TKA in 2008, reports that at the time, he went through PT, but that his knee hardware got broken, and now his right foot turns out a bit. PT-OP-C Subjective Start: 10/13/23 16:33 Freq: Status: Active Protocol: Document 10/20/23 10:28 AB (Rec: 10/20/23 16:26 AB [id number]) OP-PT Subjective Patient Comments Patient Comments Patient reports he has had no falls since previous session. Patient ambulates with small based quad cane, cane on 2 pts slighlty behind patient, too low right shoulder dropped, and drags cane when backing to chair. PT-OP-D Balance Start: 10/13/23 16:33 Freq: Status: Active Protocol: Document 10/13/23 09:45 DCW (Rec: 10/13/23 16:42 DCW [id number]) Balance Tests Cabrera Balance Test Cabrera Balance Test Score 34/56 Cabrera Balance Assessment Evaluation Sitting to Standing Ability Independent w/Hands Unsupported Stance Supervision- 2 minutes Sitting Unsupported, Feet on Floor Safely- 2 minutes Standing to Sitting Ability Assist, Control w/Hands Transfer Ability Safely, Hand Use Unsupported Stance- Eyes Closed 3 seconds Unsupported Stance- Eyes Open Independent, <30 seconds Reaching Forward Standing Safely, 5 inches Pick- Up Object From Floor Supervision Look Behind Shoulder - Standing Supervision w/Turning Turning 360 Degrees Turns slowly, but safely Unsupported Stance, Alternating Feet on 4 Steps w/Supervision Stair Unsupported Tandem Stance Small Step- 30 seconds Unilateral Leg Stance Lifts Leg/Unable to Hold Total Score Cabrera Total Score (out of 56 points) 34 Cabrera Impairment Rating 20 to 39% Impaired (Score 34- 44) PT-OP-E Functional Tests Start: 10/13/23 16:33 Freq: Status: Active Protocol: Document 10/13/23 09:45 DCW (Rec: 10/13/23 16:42 DC [id number]) Functional Tests Dynamic Gait Index (DGI) Score 12/15 PT-OP-M Strength Start: 10/13/23 16:33 Freq: Status: Active Protocol: Document 10/13/23 09:45 DCW (Rec: 10/13/23 16:42 DCW [id number]) Hip Strength Hip Manual Muscle Testing Right Flexion (L2) 3+ Fair+ Extension (S1) 4- Good- Abduction 4- Good- Adduction 4 Good External Rotation 4 Good Internal Rotation 4- Good- Left Flexion (L2) 3+ Fair+ Extension (S1) 4 Good Abduction 4- Good- Adduction 4 Good External Rotation 4 Good Internal Rotation 4- Good- Knee Strength Knee Manual Muscle Testing Right Flexion (S2) 4+ Good+ Extension (L3) 4+ Good+ Left Flexion (S2) 4+ Good+ Extension (L3) 4+ Good+ Ankle/Foot Strength Ankle and Foot Manual Muscle Testing Right Dorsiflexion (L4) 4 Good Left Dorsiflexion (L4) 4 Good PT-OP-Q Treatments Start: 10/13/23 16:33 Freq: Status: Active Protocol: Document 10/20/23 10:28 AB (Rec: 10/20/23 16:26 AB [id number]) Gym Equipment Shuttle Recovery Unilateral Squats Resistance 37# Reps/Time X15 X 2 Bilateral Squats Resistance 62#, 75# Reps/Time x15 x 2 at 62# X 6 at 75# wiht right knee pain reported Therapeutic Exercises Sitting Exercises seated hip abduction Sitting Exercise Name HEP Side bilateral Resistance level 3 band Reps/Minutes X15 X 2 and one, one minute hold X 1 Comments verbal cues Standing Exercises bilateral heel raise Standing Exercise Name HEP Reps/Minutes 15 x 2 Comments verbal cues to lower heels to floor slowly Gait Training Gait Activity small based quad cane Description height raised on cane 2 levels Device Used large based quad cane Level of Assistance supervision Distance/Duration 8 feet ie 4 feet out from chair turn back to chair to sit Treatment Focus cane placement Comments Patient comments it works for him, ie not following vc for cane position, but does comment cane is easier to place with change in height ambulating out of session. Neuro Re-Education Treatment Balance Activities Hurdles Details Hurdles Equipment // bars X8 Comments with and without UE use Tandem Details stepping Reps/Duration 10 feet X 6 Comments with and without UE use Foam Details WBOS Surface therapads Equipment // bars Comments EO/EC, head turns PT-OP-T Assessment and Plan Start: 10/13/23 16:33 Freq: Status: Active Protocol: Document 10/20/23 10:28 AB (Rec: 10/20/23 16:26 AB [id number]) Physical Therapy Assessment Goals Three Impairment Pt displays B hip weakness, especially flexion (3+/5) and abduction (4-/5) Usp Goal (LTG) Pt to demonstrate MMT of at least 4/5 in bilateral hips in order to improve stability and gait tolerance LTG Duration 12/13/23 Two Impairment Pt presents with a signifcant increased risk of falls, per Cabrera and DGI Liquid Waste Treatment Plant Operator Goal (LTG) Pt to improve DGI score by at least 6 points to in order to exhibit decreased falls risk LTG Duration 12/13/23 One Impairment Pt does not have an appropriate home exercise program Short Term Goal (STG) Pt to be independent and compliant with an appropriate HEP STG Duration 11/13/23 Assessment Summary Assessment Patient reports having a little right knee pain end of session, comments cane is touching floor now, attributes to change in height of cane this session. Significant increase in SLS post glute med activation. Physical Therapy Plan Frequency and Duration Frequency of Treatment 2x/Week Plan of Care Start Date 10/13/23 Plan of Care End Date 12/13/23 Next Visit Focus/Plan Next Note Type Treatment Note Next Visit Plan LE strengthening, static/ dynamic balance challenges Mini squat to HEP
--- NOTE | 2023-10-26 16:13 | PT.OTN ---
Current Diagnoses Unsteadiness on feet (10/26/23) Other abnormalities of gait and mobility (10/26/23) Repeated falls (10/26/23) Other symptoms and signs involving the musculoskeletal system (10/26/23) Physical Therapy Treatment Note PT-OP-A Visit Information Start: 10/13/23 16:33 Freq: Status: Active Protocol: Document 10/26/23 12:47 AB (Rec: 10/26/23 16:12 AB [id number]) Out-Patient Physical Therapy Visit Information Visit Information Visit Type Treatment Note Visit Start Time 14:33 Visit Stop Time 15:19 Visit Number 4 Number of HAIRSPRING SETTER Visits 1 Evaluation Information Evaluation Date 10/13/23 PT-OP-B Current Condition Start: 10/13/23 16:33 Freq: Status: Active Protocol: Document 10/13/23 09:45 DCW (Rec: 10/14/23 10:04 DCW [id number]) Current Condition History of Current Condition Onset Date Multi-year history Current Complaints Poor balance, deconditioning, neuropathy History of Current Condition Pt is an 88 year old male presenting with poor balance and gait difficulty. Pt was seen at the [facility] public balance screening two months ago, and at that time, it was recommended that he get a referral for therapy due to poor performance. 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 Notes no related injuries with the falls. Additionally, pt had a right TKA in 2008, reports that at the time, he went through PT, but that his knee hardware got broken, and now his right foot turns out a bit. PT-OP-C Subjective Start: 10/13/23 16:33 Freq: Status: Active Protocol: Document 10/26/23 12:47 AB (Rec: 10/26/23 16:12 AB [id number]) OP-PT Subjective Patient Comments Patient Comments Patient reports the knee pain end of previous session did not last long, muscle pain wasn't any more than usual per patient. Patient reports performing the seated hip abduction exercise every night . PT-OP-D Balance Start: 10/13/23 16:33 Freq: Status: Active Protocol: Document 10/13/23 09:45 DCW (Rec: 10/13/23 16:42 DCW [id number]) Balance Tests Cabrera Balance Test Cabrera Balance Test Score 34/56 Cabrera Balance Assessment Evaluation Sitting to Standing Ability Independent w/Hands Unsupported Stance Supervision- 2 minutes Sitting Unsupported, Feet on Floor Safely- 2 minutes Standing to Sitting Ability Assist, Control w/Hands Transfer Ability Safely, Hand Use Unsupported Stance- Eyes Closed 3 seconds Unsupported Stance- Eyes Open Independent, <30 seconds Reaching Forward Standing Safely, 5 inches Pick- Up Object From Floor Supervision Look Behind Shoulder - Standing Supervision w/Turning Turning 360 Degrees Turns slowly, but safely Unsupported Stance, Alternating Feet on 4 Steps w/Supervision Stair Unsupported Tandem Stance Small Step- 30 seconds Unilateral Leg Stance Lifts Leg/Unable to Hold Total Score Cabrera Total Score (out of 56 points) 34 Cabrera Impairment Rating 20 to 39% Impaired (Score 34- 44) PT-OP-E Functional Tests Start: 10/13/23 16:33 Freq: Status: Active Protocol: Document 10/13/23 09:45 DCW (Rec: 10/13/23 16:42 DC [id number]) Functional Tests Dynamic Gait Index (DGI) Score 12/15 PT-OP-M Strength Start: 10/13/23 16:33 Freq: Status: Active Protocol: Document 10/13/23 09:45 DCW (Rec: 10/13/23 16:42 DCW [id number]) Hip Strength Hip Manual Muscle Testing Right Flexion (L2) 3+ Fair+ Extension (S1) 4- Good- Abduction 4- Good- Adduction 4 Good External Rotation 4 Good Internal Rotation 4- Good- Left Flexion (L2) 3+ Fair+ Extension (S1) 4 Good Abduction 4- Good- Adduction 4 Good External Rotation 4 Good Internal Rotation 4- Good- Knee Strength Knee Manual Muscle Testing Right Flexion (S2) 4+ Good+ Extension (L3) 4+ Good+ Left Flexion (S2) 4+ Good+ Extension (L3) 4+ Good+ Ankle/Foot Strength Ankle and Foot Manual Muscle Testing Right Dorsiflexion (L4) 4 Good Left Dorsiflexion (L4) 4 Good PT-OP-Q Treatments Start: 10/13/23 16:33 Freq: Status: Active Protocol: Document 10/26/23 12:47 AB (Rec: 10/26/23 16:12 AB [id number]) Gym Equipment Shuttle Recovery Unilateral Squats Resistance 37# Reps/Time 15X1 Bilateral Squats Resistance 50# 75 # Reps/Time 15X2 50 15X 1 75# Shuttle Balance red Details normal NAREN and stagger Comments CGA Therapeutic Exercises Sitting Exercises seated hip abduction Sitting Exercise Name HEP blue band to HEP Side bilateral Resistance level 3 band and level 4 band Reps/Minutes X15 X 2 and one, one minute hold X 2 ( level 3 X 15 and a one min hold & 4 Comments verbal cues Standing Exercises mini squat with band Side bilateral Resistance level 4 band Reps/Minutes X10 Comments verbal and visual cues for hip hinge bilateral heel raise Standing Exercise Name HEP Reps/Minutes 15 x 1 Comments verbal cues to lower heels to floor slowly Hip Extension Standing Exercise Name Hip Extension Side bilateral Resistance Lv 4 loop above knees Reps/Minutes X10 Gait Training Gait Activity SPC Device Used SPC Distance/Duration ~40 feet, then between tasks in clinic Comments SPC adjusted for height, verbal cues to use in left UE due to c/o right knee pain. Patient ed SPC tips to prevent cane from falling and Hurrycane are options that may be of use as patient is currently using a SBQC, and does not place 4 pts on floor during ambulation also uses in right UE. Neuro Re-Education Treatment Balance Activities Hurdles Details Hurdles Equipment // bars X8 Comments with and without UE use Tandem Details stepping Reps/Duration 10 feet X 6 Comments with and without UE use PT-OP-T Assessment and Plan Start: 10/13/23 16:33 Freq: Status: Active Protocol: Document 10/26/23 12:47 AB (Rec: 10/26/23 16:12 AB [id number]) Physical Therapy Assessment Goals Three Impairment Pt displays B hip weakness, especially flexion (3+/5) and abduction (4-/5) Jail Goal (LTG) Pt to demonstrate MMT of at least 4/5 in bilateral hips in order to improve stability and gait tolerance LTG Duration 12/13/23 Two Impairment Pt presents with a signifcant increased risk of falls, per Cabrera and DGI Head Operator Sulfide Goal (LTG) Pt to improve DGI score by at least 6 points to in order to exhibit decreased falls risk LTG Duration 12/13/23 One Impairment Pt does not have an appropriate home exercise program Short Term Goal (STG) Pt to be independent and compliant with an appropriate HEP STG Duration 11/13/23 Assessment Summary Assessment Diallo reports having no pain end of session and reports having no pain with mini squat with band during session. Physical Therapy Plan Frequency and Duration Frequency of Treatment 2x/Week Plan of Care Start Date 10/13/23 Plan of Care End Date 12/13/23 Next Visit Focus/Plan Next Note Type Treatment Note Next Visit Plan LE strengthening, static/ dynamic balance challenges Mini squat to HEP possibly
--- NOTE | 2023-10-29 15:18 | PT.OTN ---
Current Diagnoses Unsteadiness on feet (10/29/23) Other abnormalities of gait and mobility (10/29/23) Repeated falls (10/29/23) Other symptoms and signs involving the musculoskeletal system (10/29/23) Physical Therapy Treatment Note PT-OP-A Visit Information Start: 10/13/23 16:33 Freq: Status: Active Protocol: Document 10/29/23 14:30 DCW (Rec: 10/29/23 15:18 DCW [id number]) Out-Patient Physical Therapy Visit Information Visit Information Visit Type Treatment Note Visit Start Time 14:30 Visit Stop Time 15:15 Visit Number 5 Number of SHEET METAL JOURNEYMAN Visits 0 Evaluation Information Evaluation Date 10/13/23 PT-OP-B Current Condition Start: 10/13/23 16:33 Freq: Status: Active Protocol: Document 10/13/23 09:45 DCW (Rec: 10/14/23 10:04 DCW [id number]) Current Condition History of Current Condition Onset Date Multi-year history Current Complaints Poor balance, deconditioning, neuropathy History of Current Condition Pt is an 88 year old male presenting with poor balance and gait difficulty. Pt was seen at the [facility] public balance screening two months ago, and at that time, it was recommended that he get a referral for therapy due to poor performance. 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 Notes no related injuries with the falls. Additionally, pt had a right TKA in 2008, reports that at the time, he went through PT, but that his knee hardware got broken, and now his right foot turns out a bit. PT-OP-C Subjective Start: 10/13/23 16:33 Freq: Status: Active Protocol: Document 10/29/23 14:30 DCW (Rec: 10/29/23 15:18 DCW [id number]) OP-PT Subjective Patient Comments Patient Comments It feels like we're on the right track. PT-OP-D Balance Start: 10/13/23 16:33 Freq: Status: Active Protocol: Document 10/13/23 09:45 DCW (Rec: 10/13/23 16:42 DCW [id number]) Balance Tests Cabrera Balance Test Cabrera Balance Test Score 34/56 Cabrera Balance Assessment Evaluation Sitting to Standing Ability Independent w/Hands Unsupported Stance Supervision- 2 minutes Sitting Unsupported, Feet on Floor Safely- 2 minutes Standing to Sitting Ability Assist, Control w/Hands Transfer Ability Safely, Hand Use Unsupported Stance- Eyes Closed 3 seconds Unsupported Stance- Eyes Open Independent, <30 seconds Reaching Forward Standing Safely, 5 inches Pick- Up Object From Floor Supervision Look Behind Shoulder - Standing Supervision w/Turning Turning 360 Degrees Turns slowly, but safely Unsupported Stance, Alternating Feet on 4 Steps w/Supervision Stair Unsupported Tandem Stance Small Step- 30 seconds Unilateral Leg Stance Lifts Leg/Unable to Hold Total Score Cabrera Total Score (out of 56 points) 34 Cabrera Impairment Rating 20 to 39% Impaired (Score 34- 44) PT-OP-E Functional Tests Start: 10/13/23 16:33 Freq: Status: Active Protocol: Document 10/13/23 09:45 DCW (Rec: 10/13/23 16:42 DCW [id number]) Functional Tests Dynamic Gait Index (DGI) Score 12/15 PT-OP-M Strength Start: 10/13/23 16:33 Freq: Status: Active Protocol: Document 10/13/23 09:45 DCW (Rec: 10/13/23 16:42 DCW [id number]) Hip Strength Hip Manual Muscle Testing Right Flexion (L2) 3+ Fair+ Extension (S1) 4- Good- Abduction 4- Good- Adduction 4 Good External Rotation 4 Good Internal Rotation 4- Good- Left Flexion (L2) 3+ Fair+ Extension (S1) 4 Good Abduction 4- Good- Adduction 4 Good External Rotation 4 Good Internal Rotation 4- Good- Knee Strength Knee Manual Muscle Testing Right Flexion (S2) 4+ Good+ Extension (L3) 4+ Good+ Left Flexion (S2) 4+ Good+ Extension (L3) 4+ Good+ Ankle/Foot Strength Ankle and Foot Manual Muscle Testing Right Dorsiflexion (L4) 4 Good Left Dorsiflexion (L4) 4 Good PT-OP-Q Treatments Start: 10/13/23 16:33 Freq: Status: Active Protocol: Document 10/29/23 14:30 DCW (Rec: 10/29/23 15:18 DCW [id number]) Cardio Equipment Recumbent Elliptical ([place]) Duration (Minutes) 6 Resistance 4 Seat Position 11 Gym Equipment Cable Column (Body Solid) Hip Adduction Resistance 70# Hip Abduction Resistance 40# Shuttle Recovery Unilateral Squats Resistance 37# Reps/Time x25 Bilateral Squats Resistance 75# Reps/Time x25 Shuttle Balance red Details normal NAREN and stagger Comments CGA Therapeutic Exercises Other Exercises Resisted Ambulation Other Exercise Name Resisted Side-stepping Resistance Green PT-OP-T Assessment and Plan Start: 10/13/23 16:33 Freq: Status: Active Protocol: Document 10/29/23 14:30 DCW (Rec: 10/29/23 15:18 DCW [id number]) Physical Therapy Assessment Impairments Impairments Activity Tolerance,Balance, Functional Activities, Functional Mobility,Gait,Soft Tissue Mobility,Strength Goals Three Impairment Pt displays B hip weakness, especially flexion (3+/5) and abduction (4-/5) Operational Risk Consultant Goal (LTG) Pt to demonstrate MMT of at least 4/5 in bilateral hips in order to improve stability and gait tolerance LTG Duration 12/13/23 Two Impairment Pt presents with a significant increased risk of falls, per Cabrera and DGI Operational Risk Consultant Goal (LTG) Pt to improve DGI score by at least 6 points to in order to exhibit decreased falls risk LTG Duration 12/13/23 One Impairment Pt does not have an appropriate home exercise program Short Term Goal (STG) Pt to be independent and compliant with an appropriate HEP STG Duration 11/13/23 Assessment Summary Assessment Pt noted some right knee discomfort with leg press, but overall feeling general muscle ache following exercise , it feels like it's supposed to after working out. Showing some improvement with activity tolerance and LE strength. Physical Therapy Plan Frequency and Duration Frequency of Treatment 2x/Week Plan of Care Start Date 10/13/23 Plan of Care End Date 12/13/23 Next Visit Focus/Plan Next Note Type Treatment Note Next Visit Plan LE strengthening, static/ dynamic balance challenges Mini squat to HEP possibly
--- NOTE | 2023-11-03 10:30 | PT.OTN ---
Current Diagnoses Unsteadiness on feet (11/03/23) Other abnormalities of gait and mobility (11/03/23) Repeated falls (11/03/23) Other symptoms and signs involving the musculoskeletal system (11/03/23) Physical Therapy Treatment Note PT-OP-A Visit Information Start: 10/13/23 16:33 Freq: Status: Active Protocol: Document 11/03/23 09:45 DCW (Rec: 11/03/23 10:30 DCW [id number]) Out-Patient Physical Therapy Visit Information Visit Information Visit Type Treatment Note Visit Start Time 09:45 Visit Stop Time 10:30 Visit Number 6 Number of GLACING MACHINE TENDER Visits 0 Evaluation Information Evaluation Date 10/13/23 PT-OP-B Current Condition Start: 10/13/23 16:33 Freq: Status: Active Protocol: Document 10/13/23 09:45 DCW (Rec: 10/14/23 10:04 DCW [id number]) Current Condition History of Current Condition Onset Date Multi-year history Current Complaints Poor balance, deconditioning, neuropathy History of Current Condition Pt is an 88 year old male presenting with poor balance and gait difficulty. Pt was seen at the [facility] public balance screening two months ago, and at that time, it was recommended that he get a referral for therapy due to poor performance. 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 Notes no related injuries with the falls. Additionally, pt had a right TKA in 2008, reports that at the time, he went through PT, but that his knee hardware got broken, and now his right foot turns out a bit. PT-OP-C Subjective Start: 10/13/23 16:33 Freq: Status: Active Protocol: Document 11/03/23 09:45 DCW (Rec: 11/03/23 10:30 DCW [id number]) OP-PT Subjective Patient Comments Patient Comments I am walking a little better than I was, so it seems to be working. PT-OP-D Balance Start: 10/13/23 16:33 Freq: Status: Active Protocol: Document 10/13/23 09:45 DCW (Rec: 10/13/23 16:42 DCW [id number]) Balance Tests Cabrera Balance Test Cabrera Balance Test Score 34/56 Cabrera Balance Assessment Evaluation Sitting to Standing Ability Independent w/Hands Unsupported Stance Supervision- 2 minutes Sitting Unsupported, Feet on Floor Safely- 2 minutes Standing to Sitting Ability Assist, Control w/Hands Transfer Ability Safely, Hand Use Unsupported Stance- Eyes Closed 3 seconds Unsupported Stance- Eyes Open Independent, <30 seconds Reaching Forward Standing Safely, 5 inches Pick- Up Object From Floor Supervision Look Behind Shoulder - Standing Supervision w/Turning Turning 360 Degrees Turns slowly, but safely Unsupported Stance, Alternating Feet on 4 Steps w/Supervision Stair Unsupported Tandem Stance Small Step- 30 seconds Unilateral Leg Stance Lifts Leg/Unable to Hold Total Score Cabrera Total Score (out of 56 points) 34 Cabrera Impairment Rating 20 to 39% Impaired (Score 34- 44) PT-OP-E Functional Tests Start: 10/13/23 16:33 Freq: Status: Active Protocol: Document 10/13/23 09:45 DCW (Rec: 10/13/23 16:42 DCW [id number]) Functional Tests Dynamic Gait Index (DGI) Score 12/15 PT-OP-M Strength Start: 10/13/23 16:33 Freq: Status: Active Protocol: Document 10/13/23 09:45 DCW (Rec: 10/13/23 16:42 DCW [id number]) Hip Strength Hip Manual Muscle Testing Right Flexion (L2) 3+ Fair+ Extension (S1) 4- Good- Abduction 4- Good- Adduction 4 Good External Rotation 4 Good Internal Rotation 4- Good- Left Flexion (L2) 3+ Fair+ Extension (S1) 4 Good Abduction 4- Good- Adduction 4 Good External Rotation 4 Good Internal Rotation 4- Good- Knee Strength Knee Manual Muscle Testing Right Flexion (S2) 4+ Good+ Extension (L3) 4+ Good+ Left Flexion (S2) 4+ Good+ Extension (L3) 4+ Good+ Ankle/Foot Strength Ankle and Foot Manual Muscle Testing Right Dorsiflexion (L4) 4 Good Left Dorsiflexion (L4) 4 Good PT-OP-Q Treatments Start: 10/13/23 16:33 Freq: Status: Active Protocol: Document 11/03/23 09:45 DCW (Rec: 11/03/23 10:30 DCW [id number]) Cardio Equipment Recumbent Elliptical (V[place]ala) Duration (Minutes) 6 Resistance 5 Seat Position 11 Gym Equipment Cable Column (Body Solid) Hip Adduction Resistance 70# Hip Abduction Resistance 40# Shuttle Recovery Unilateral Squats Resistance 37# Reps/Time x25 Bilateral Squats Resistance 75# Reps/Time x25 Shuttle Balance red Details WBOS and stagger Comments CGA Therapeutic Activity Therapeutic Activity Sit<->Stand Name Transfers Reps/Minutes x15 Comments Technique - getting hips forward in chair, nose over toes PT-OP-T Assessment and Plan Start: 10/13/23 16:33 Freq: Status: Active Protocol: Document 11/03/23 09:45 DCW (Rec: 11/03/23 10:30 DCW [id number]) Physical Therapy Assessment Impairments Impairments Activity Tolerance,Balance, Functional Activities, Functional Mobility,Gait,Soft Tissue Mobility,Strength Goals Three Impairment Pt displays B hip weakness, especially flexion (3+/5) and abduction (4-/5) Skilled Nursing Goal (LTG) Pt to demonstrate MMT of at least 4/5 in bilateral hips in order to improve stability and gait tolerance LTG Duration 12/13/23 Two Impairment Pt presents with a significant increased risk of falls, per Carbera and DGI Hosiery Mender Goal (LTG) Pt to improve DGI score by at least 6 points to 16 in order to exhibit decreased falls risk LTG Duration 12/13/23 One Impairment Pt does not have an appropriate home exercise program Short Term Goal (STG) Pt to be independent and compliant with an appropriate HEP STG Duration 11/13/23 Assessment Summary Assessment Spent time practicing sit<-> stands today, pt noted significant improvement in ability, felt much better about his transfers. Demonstrating improved LE strength and activity tolerance, continue with strengthening and balance challenges. Physical Therapy Plan Frequency and Duration Frequency of Treatment 2x/Week Plan of Care Start Date 10/13/23 Plan of Care End Date 12/13/23 Next Visit Focus/Plan Next Note Type Treatment Note Next Visit Plan LE strengthening, static/ dynamic balance challenges Mini squat to HEP possibly
--- NOTE | 2023-11-05 16:34 | PT.OTN ---
Current Diagnoses Unsteadiness on feet (11/05/23) Other abnormalities of gait and mobility (11/05/23) Repeated falls (11/05/23) Other symptoms and signs involving the musculoskeletal system (11/05/23) Physical Therapy Treatment Note PT-OP-A Visit Information Start: 10/13/23 16:33 Freq: Status: Active Protocol: Document 11/05/23 13:48 AB (Rec: 11/05/23 16:34 AB [id number]) Out-Patient Physical Therapy Visit Information Visit Information Visit Type Treatment Note Visit Note Visit [email or web address] Access Code: [email or web address] Visit Start Time 13:48 Visit Stop Time 14:30 Visit Number 7 Number of CARTOON ARTIST Visits 1 Evaluation Information Evaluation Date 10/13/23 PT-OP-B Current Condition Start: 10/13/23 16:33 Freq: Status: Active Protocol: Document 10/13/23 09:45 DCW (Rec: 10/14/23 10:04 DCW [id number]) Current Condition History of Current Condition Onset Date Multi-year history Current Complaints Poor balance, deconditioning, neuropathy History of Current Condition Pt is an 88 year old male presenting with poor balance and gait difficulty. Pt was seen at the [facility] public balance screening two months ago, and at that time, it was recommended that he get a referral for therapy due to poor performance. 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 Notes no related injuries with the falls. Additionally, pt had a right TKA in 2008, reports that at the time, he went through PT, but that his knee hardware got broken, and now his right foot turns out a bit. PT-OP-C Subjective Start: 10/13/23 16:33 Freq: Status: Active Protocol: Document 11/05/23 13:48 AB (Rec: 11/05/23 16:34 AB [id number]) OP-PT Subjective Patient Comments Patient Comments Patient reports he is walking better, reports having no falls. Patient into session with single point cane with tip to prevent cane from tipping over. PT-OP-D Balance Start: 10/13/23 16:33 Freq: Status: Active Protocol: Document 10/13/23 09:45 DCW (Rec: 10/13/23 16:42 DCW [id number]) Balance Tests Cabrera Balance Test Cabrera Balance Test Score 34/56 Cabrera Balance Assessment Evaluation Sitting to Standing Ability Independent w/Hands Unsupported Stance Supervision- 2 minutes Sitting Unsupported, Feet on Floor Safely- 2 minutes Standing to Sitting Ability Assist, Control w/Hands Transfer Ability Safely, Hand Use Unsupported Stance- Eyes Closed 3 seconds Unsupported Stance- Eyes Open Independent, <30 seconds Reaching Forward Standing Safely, 5 inches Pick- Up Object From Floor Supervision Look Behind Shoulder - Standing Supervision w/Turning Turning 360 Degrees Turns slowly, but safely Unsupported Stance, Alternating Feet on 4 Steps w/Supervision Stair Unsupported Tandem Stance Small Step- 30 seconds Unilateral Leg Stance Lifts Leg/Unable to Hold Total Score Cabrera Total Score (out of 56 points) 34 Cabrera Impairment Rating 20 to 39% Impaired (Score 34- 44) PT-OP-E Functional Tests Start: 10/13/23 16:33 Freq: Status: Active Protocol: Document 10/13/23 09:45 DCW (Rec: 10/13/23 16:42 DC [id number]) Functional Tests Dynamic Gait Index (DGI) Score 12/15 PT-OP-M Strength Start: 10/13/23 16:33 Freq: Status: Active Protocol: Document 10/13/23 09:45 DCW (Rec: 10/13/23 16:42 [facility] [id number]) Hip Strength Hip Manual Muscle Testing Right Flexion (L2) 3+ Fair+ Extension (S1) 4- Good- Abduction 4- Good- Adduction 4 Good External Rotation 4 Good Internal Rotation 4- Good- Left Flexion (L2) 3+ Fair+ Extension (S1) 4 Good Abduction 4- Good- Adduction 4 Good External Rotation 4 Good Internal Rotation 4- Good- Knee Strength Knee Manual Muscle Testing Right Flexion (S2) 4+ Good+ Extension (L3) 4+ Good+ Left Flexion (S2) 4+ Good+ Extension (L3) 4+ Good+ Ankle/Foot Strength Ankle and Foot Manual Muscle Testing Right Dorsiflexion (L4) 4 Good Left Dorsiflexion (L4) 4 Good PT-OP-Q Treatments Start: 10/13/23 16:33 Freq: Status: Active Protocol: Document 11/05/23 13:48 AB (Rec: 11/05/23 16:34 AB [id number]) Gym Equipment Shuttle Balance red Details WBOS and stagger Comments CGA Therapeutic Exercises Sitting Exercises seated hip abduction Sitting Exercise Name level 5 to HEP Side bilateral Resistance level 5 band Reps/Minutes X15 X 2 and one, one minute hold X 2 ( level 3 X 15 and a one min hold & 4 Comments verbal cues Standing Exercises sit to stand Standing Exercise Name with UE use HEP Reps/Minutes X10 X 2 Comments monitored for pain bilateral heel raise Standing Exercise Name HEP Reps/Minutes 15 x 1 Comments verbal cues to lower heels to floor slowly Gait Training Gait Activity SPC Device Used SPC Distance/Duration ambulating between tasks in session Treatment Focus using SPC left UE Comments Patient ed rationale of left UE use to decrease right knee pain. Neuro Re-Education Treatment Balance Activities Hurdles Details Hurdles Equipment // bars X6 Comments with and without UE use Tandem Details stepping Reps/Duration 10 feet X 6 Comments with and without UE use Foam Details 1. step up taps 2 SLS Surface standing on foam Equipment // bars Comments EO/EC, head turnCGA PT-OP-T Assessment and Plan Start: 10/13/23 16:33 Freq: Status: Active Protocol: Document 11/05/23 13:48 AB (Rec: 11/05/23 16:34 AB [id number]) Physical Therapy Assessment Goals Three Impairment Pt displays B hip weakness, especially flexion (3+/5) and abduction (4-/5) Leasing Coordinator Goal (LTG) Pt to demonstrate MMT of at least 4/5 in bilateral hips in order to improve stability and gait tolerance LTG Duration 12/13/23 Two Impairment Pt presents with a signifcant increased risk of falls, per Cabrera and DGI Intermediate Goal (LTG) Pt to improve DGI score by at least 6 points to in order to exhibit decreased falls risk LTG Duration 12/13/23 One Impairment Pt does not have an appropriate home exercise program Short Term Goal (STG) Pt to be independent and compliant with an appropriate HEP STG Duration 11/13/23 Assessment Summary Assessment Patient reports having no pain end of session. Good lisa to sit to stand, and sit to stand with UE use added to HEP, patient continues to be unable to perform sit to stand without UE use. Physical Therapy Plan Frequency and Duration Frequency of Treatment 2x/Week Plan of Care Start Date 10/13/23 Plan of Care End Date 12/13/23 Therapeutic Interventions Therapeutic Interventions Balance Training,Coordination Training,Gait Training,Home Exercise Program,Joint Mobilizations,Manual Therapy, Neuromuscular Re-education, Patient/Caregiver Education, Self-Care/Home Management,Soft Tissue Mobilization, Therapeutic Activities, Therapeutic Exercises Next Visit Focus/Plan Next Note Type Treatment Note Next Visit Plan LE strengthening, static/ dynamic balance challenges
--- NOTE | 2023-11-09 16:16 | PT.OTN ---
Current Diagnoses Unsteadiness on feet (11/09/23) Other abnormalities of gait and mobility (11/09/23) Repeated falls (11/09/23) Other symptoms and signs involving the musculoskeletal system (11/09/23) Physical Therapy Treatment Note PT-OP-A Visit Information Start: 10/13/23 16:33 Freq: Status: Active Protocol: Document 11/09/23 13:46 AB (Rec: 11/09/23 16:16 AB [id number]) Out-Patient Physical Therapy Visit Information Visit Information Visit Type Treatment Note Visit Note Visit [email or web address] Access Code: [email or web address] Visit Start Time 15:20 Visit Stop Time 16:03 Visit Number 8 Number of FILLER BLENDER Visits 2 Evaluation Information Evaluation Date 10/13/23 PT-OP-B Current Condition Start: 10/13/23 16:33 Freq: Status: Active Protocol: Document 10/13/23 09:45 DCW (Rec: 10/14/23 10:04 DCW [id number]) Current Condition History of Current Condition Onset Date Multi-year history Current Complaints Poor balance, deconditioning, neuropathy History of Current Condition Pt is an 88 year old male presenting with poor balance and gait difficulty. Pt was seen at the [facility] public balance screening two months ago, and at that time, it was recommended that he get a referral for therapy due to poor performance. Pt has had a few recent falls, reports one happened missing a step when trying to step up a curb, and another occurred when trying to crop picker a mini fridge. Notes no related injuries with the falls. Additionally, pt had a right TKA in 2008, reports that at the time, he went through PT, but that his knee hardware got broken, and now his right foot turns out a bit. PT-OP-C Subjective Start: 10/13/23 16:33 Freq: Status: Active Protocol: Document 11/09/23 13:46 AB (Rec: 11/09/23 16:16 AB [id number]) OP-PT Subjective Patient Comments Patient Comments Patient reports he missed getting up and down from the chair one day, and the band with the legs is so easy. Patient declines using SPC in left UE. Patient reports having no falls. PT-OP-D Balance Start: 10/13/23 16:33 Freq: Status: Active Protocol: Document 10/13/23 09:45 DCW (Rec: 10/13/23 16:42 [facility] [id number]) Balance Tests Cabrera Balance Test Cabrera Balance Test Score 34/56 Cabrera Balance Assessment Evaluation Sitting to Standing Ability Independent w/Hands Unsupported Stance Supervision- 2 minutes Sitting Unsupported, Feet on Floor Safely- 2 minutes Standing to Sitting Ability Assist, Control w/Hands Transfer Ability Safely, Hand Use Unsupported Stance- Eyes Closed 3 seconds Unsupported Stance- Eyes Open Independent, <30 seconds Reaching Forward Standing Safely, 5 inches Pick- Up Object From Floor Supervision Look Behind Shoulder - Standing Supervision w/Turning Turning 360 Degrees Turns slowly, but safely Unsupported Stance, Alternating Feet on 4 Steps w/Supervision Stair Unsupported Tandem Stance Small Step- 30 seconds Unilateral Leg Stance Lifts Leg/Unable to Hold Total Score Cabrera Total Score (out of 56 points) 34 Cabrera Impairment Rating 20 to 39% Impaired (Score 34- 44) PT-OP-E Functional Tests Start: 10/13/23 16:33 Freq: Status: Active Protocol: Document 10/13/23 09:45 DCW (Rec: 10/13/23 16:42 [facility] [id number]) Functional Tests Dynamic Gait Index (DGI) Score 12/15 PT-OP-M Strength Start: 10/13/23 16:33 Freq: Status: Active Protocol: Document 10/13/23 09:45 DCW (Rec: 10/13/23 16:42 [facility] [id number]) Hip Strength Hip Manual Muscle Testing Right Flexion (L2) 3+ Fair+ Extension (S1) 4- Good- Abduction 4- Good- Adduction 4 Good External Rotation 4 Good Internal Rotation 4- Good- Left Flexion (L2) 3+ Fair+ Extension (S1) 4 Good Abduction 4- Good- Adduction 4 Good External Rotation 4 Good Internal Rotation 4- Good- Knee Strength Knee Manual Muscle Testing Right Flexion (S2) 4+ Good+ Extension (L3) 4+ Good+ Left Flexion (S2) 4+ Good+ Extension (L3) 4+ Good+ Ankle/Foot Strength Ankle and Foot Manual Muscle Testing Right Dorsiflexion (L4) 4 Good Left Dorsiflexion (L4) 4 Good PT-OP-Q Treatments Start: 10/13/23 16:33 Freq: Status: Active Protocol: Document 11/09/23 13:46 AB (Rec: 11/09/23 16:16 AB [id number]) Gym Equipment Shuttle Recovery Unilateral Squats Resistance 37# Reps/Time x25 Bilateral Squats Resistance 75# Reps/Time 25 Shuttle Balance red Details stagger Comments CGA with visual scanning Therapeutic Exercises Supine Exercises Modified Florentin stretch Supine Exercise Name one LE on bolster one on mat Side bilateral Reps/Minutes 2 min each LE Comments VC for breathing from diaphragm Sidelying Exercises clamshell Sidelying Exercise Name HEP Side bilateral Resistance level 3 band Reps/Minutes X15 post X 10 without band Comments Verbal cues to avoid rolling back Sitting Exercises seated hip abduction Sitting Exercise Name level 5 to HEP Side bilateral Resistance level 5 band Reps/Minutes one one minute hold Comments for glute med activation prior to balance ex Standing Exercises mini squat with band Side bilateral Resistance level 4 band Reps/Minutes X10 X2 Comments repeated verbal and visual cues for hip hinge Neuro Re-Education Treatment Balance Activities Retro stepping Reps/Duration 10 feet x4 Comments hands above bars CGA Hurdles Details Hurdles Equipment // bars X5 fwd X 1 left and right lateral Comments with UE use for lateral hands above bars for fwd Tandem Details stepping Reps/Duration 10 feet X 5 Comments without UE use/hands above bars PT-OP-T Assessment and Plan Start: 10/13/23 16:33 Freq: Status: Active Protocol: Document 11/09/23 13:46 AB (Rec: 11/09/23 16:16 AB [id number]) Physical Therapy Assessment Other Concerns Fall Risk High falls risk, per Cabrera (34/ 56) and DGI (12/15) scores Goals Three Impairment Pt displays B hip weakness, especially flexion (3+/5) and abduction (4-/5) Residential Goal (LTG) Pt to demonstrate MMT of at least 4/5 in bilateral hips in order to improve stability and gait tolerance LTG Duration 12/13/23 Two Impairment Pt presents with a signifcant increased risk of falls, per Cabrera and DGI Tonnage Compilation Clerk Goal (LTG) Pt to improve DGI score by at least 6 points to in order to exhibit decreased falls risk LTG Duration 12/13/23 One Impairment Pt does not have an appropriate home exercise program Short Term Goal (STG) Pt to be independent and compliant with an appropriate HEP STG Duration 11/13/23 Assessment Summary Assessment Patient with increased difficulty performing mini squat with hip hinge, repeated verbal and visual cues, but was able to progress to sidelying clamshell with band. Physical Therapy Plan Frequency and Duration Frequency of Treatment 2x/Week Plan of Care Start Date 10/13/23 Plan of Care End Date 12/13/23 Next Visit Focus/Plan Next Note Type Treatment Note Next Visit Plan LE strengthening, static/ dynamic balance challenges
--- NOTE | 2023-11-11 16:08 | PT.OTN ---
Current Diagnoses Unsteadiness on feet (11/11/23) Other abnormalities of gait and mobility (11/11/23) Repeated falls (11/11/23) Other symptoms and signs involving the musculoskeletal system (11/11/23) Physical Therapy Treatment Note PT-OP-A Visit Information Start: 10/13/23 16:33 Freq: Status: Active Protocol: Document 11/11/23 15:11 AB (Rec: 11/11/23 16:08 AB [id number]) Out-Patient Physical Therapy Visit Information Visit Information Visit Type Treatment Note Visit Note Visit [email or web address] Access Code: [email or web address] Visit Start Time 15:19 Visit Stop Time 16:04 Visit Number 9 Number of TRANSFORMER ASSEMBLY SUPERVISOR Visits 3 Evaluation Information Evaluation Date 10/13/23 PT-OP-B Current Condition Start: 10/13/23 16:33 Freq: Status: Active Protocol: Document 10/13/23 09:45 DCW (Rec: 10/14/23 10:04 DCW [id number]) Current Condition History of Current Condition Onset Date Multi-year history Current Complaints Poor balance, deconditioning, neuropathy History of Current Condition Pt is an 88 year old male presenting with poor balance and gait difficulty. Pt was seen at the [facility] public balance screening two months ago, and at that time, it was recommended that he get a referral for therapy due to poor performance. Pt has had a few recent falls, reports one happened missing a step when trying to step up a curb, and another occurred when trying to turkey picker a mini fridge. Notes no related injuries with the falls. Additionally, pt had a right TKA in 2008, reports that at the time, he went through PT, but that his knee hardware got broken, and now his right foot turns out a bit. PT-OP-C Subjective Start: 10/13/23 16:33 Freq: Status: Active Protocol: Document 11/11/23 15:11 AB (Rec: 11/11/23 16:08 AB [id number]) OP-PT Subjective Patient Comments Patient Comments Patient reports he has his ususal daryl pain. Patient reports he missed doing the exercises yesterday due to taking a medication for his pain that made him nauseous. PT-OP-D Balance Start: 10/13/23 16:33 Freq: Status: Active Protocol: Document 10/13/23 09:45 DCW (Rec: 10/13/23 16:42 DCW [id number]) Balance Tests Cabrera Balance Test Cabrera Balance Test Score 34/56 Cabrera Balance Assessment Evaluation Sitting to Standing Ability Independent w/Hands Unsupported Stance Supervision- 2 minutes Sitting Unsupported, Feet on Floor Safely- 2 minutes Standing to Sitting Ability Assist, Control w/Hands Transfer Ability Safely, Hand Use Unsupported Stance- Eyes Closed 3 seconds Unsupported Stance- Eyes Open Independent, <30 seconds Reaching Forward Standing Safely, 5 inches Pick- Up Object From Floor Supervision Look Behind Shoulder - Standing Supervision w/Turning Turning 360 Degrees Turns slowly, but safely Unsupported Stance, Alternating Feet on 4 Steps w/Supervision Stair Unsupported Tandem Stance Small Step- 30 seconds Unilateral Leg Stance Lifts Leg/Unable to Hold Total Score Cabrera Total Score (out of 56 points) 34 Cabrera Impairment Rating 20 to 39% Impaired (Score 34- 44) PT-OP-E Functional Tests Start: 10/13/23 16:33 Freq: Status: Active Protocol: Document 10/13/23 09:45 DCW (Rec: 10/13/23 16:42 DC [id number]) Functional Tests Dynamic Gait Index (DGI) Score 12/15 PT-OP-M Strength Start: 10/13/23 16:33 Freq: Status: Active Protocol: Document 10/13/23 09:45 DCW (Rec: 10/13/23 16:42 DCW [id number]) Hip Strength Hip Manual Muscle Testing Right Flexion (L2) 3+ Fair+ Extension (S1) 4- Good- Abduction 4- Good- Adduction 4 Good External Rotation 4 Good Internal Rotation 4- Good- Left Flexion (L2) 3+ Fair+ Extension (S1) 4 Good Abduction 4- Good- Adduction 4 Good External Rotation 4 Good Internal Rotation 4- Good- Knee Strength Knee Manual Muscle Testing Right Flexion (S2) 4+ Good+ Extension (L3) 4+ Good+ Left Flexion (S2) 4+ Good+ Extension (L3) 4+ Good+ Ankle/Foot Strength Ankle and Foot Manual Muscle Testing Right Dorsiflexion (L4) 4 Good Left Dorsiflexion (L4) 4 Good PT-OP-Q Treatments Start: 10/13/23 16:33 Freq: Status: Active Protocol: Document 11/11/23 15:11 AB (Rec: 11/11/23 16:08 AB [id number]) Cardio Equipment Recumbent Elliptical ([employer]) Duration (Minutes) 5 Resistance 3 Seat Position 13 Gym Equipment Shuttle Balance red Details stagger Comments CGA with visual scanning Therapeutic Exercises Supine Exercises Modified Florentin stretch Supine Exercise Name one LE on bolster one on mat Side bilateral Reps/Minutes 2 min each LE Comments VC for breathing from diaphragm Sitting Exercises seated hip abduction Sitting Exercise Name level 5 to HEP Side bilateral Resistance level 5 band Reps/Minutes one one minute hold Comments for glute med activation prior to balance ex Standing Exercises mini squat with band Side bilateral Resistance level 5 band Reps/Minutes X10 X3 Comments repeated verbal and visual cues for hip hinge Neuro Re-Education Treatment Balance Activities Hurdles Details Hurdles Equipment fwd X6 Comments hands above bars Tandem Details stepping Reps/Duration 10 feet X2 Comments without UE use/hands above bars Foam Details 1. step up taps 2. SLS Surface standing on foam Equipment // bars Comments EO/EC, head turnCGA PT-OP-T Assessment and Plan Start: 10/13/23 16:33 Freq: Status: Active Protocol: Document 11/11/23 15:11 AB (Rec: 11/11/23 16:08 AB [id number]) Physical Therapy Assessment Goals Three Impairment Pt displays B hip weakness, especially flexion (3+/5) and abduction (4-/5) Evaporative Cooler Installer Goal (LTG) Pt to demonstrate MMT of at least 4/5 in bilateral hips in order to improve stability and gait tolerance LTG Duration 12/13/23 Two Impairment Pt presents with a signifcant increased risk of falls, per Cabrera and DGI Evaporative Cooler Installer Goal (LTG) Pt to improve DGI score by at least 6 points to in order to exhibit decreased falls risk LTG Duration 12/13/23 One Impairment Pt does not have an appropriate home exercise program Short Term Goal (STG) Pt to be independent and compliant with an appropriate HEP STG Duration 11/13/23 Assessment Summary Assessment Patient reports no more pain than ususal pain end of session. Good return demonstration for hip hinge, but is slightly unsteady with level 5 band during mini squat . Physical Therapy Plan Frequency and Duration Frequency of Treatment 2x/Week Plan of Care Start Date 10/13/23 Plan of Care End Date 12/13/23 Next Visit Focus/Plan Next Note Type Progress Note Next Visit Plan LE strengthening, static/ dynamic balance challenges
--- NOTE | 2023-11-17 10:28 | PT.OTN ---
Current Diagnoses Unsteadiness on feet (11/17/23) Other abnormalities of gait and mobility (11/17/23) Repeated falls (11/17/23) Other symptoms and signs involving the musculoskeletal system (11/17/23) Physical Therapy Treatment Note PT-OP-A Visit Information Start: 10/13/23 16:33 Freq: Status: Active Protocol: Document 11/17/23 09:45 DCW (Rec: 11/17/23 10:28 DCW [id number]) Out-Patient Physical Therapy Visit Information Visit Information Visit Type Progress Note Visit Start Time 09:45 Visit Stop Time 10:30 Visit Number 10 Number of COMPOUND MACHINE OPERATOR Visits 0 Evaluation Information Evaluation Date 10/13/23 PT-OP-B Current Condition Start: 10/13/23 16:33 Freq: Status: Active Protocol: Document 10/13/23 09:45 DCW (Rec: 10/14/23 10:04 DCW [id number]) Current Condition History of Current Condition Onset Date Multi-year history Current Complaints Poor balance, deconditioning, neuropathy History of Current Condition Pt is an 88 year old male presenting with poor balance and gait difficulty. Pt was seen at the [facility] public balance screening two months ago, and at that time, it was recommended that he get a referral for therapy due to poor performance. Pt has had a few recent falls, reports one happened missing a step when trying to step up a curb, and another occurred when trying to pick remover a mini fridge. Notes no related injuries with the falls. Additionally, pt had a right TKA in 2008, reports that at the time, he went through PT, but that his knee hardware got broken, and now his right foot turns out a bit. PT-OP-C Subjective Start: 10/13/23 16:33 Freq: Status: Active Protocol: Document 11/17/23 09:45 DCW (Rec: 11/17/23 10:28 DCW [id number]) OP-PT Subjective Patient Comments Patient Comments Fine, I guess. Slow. PT-OP-D Balance Start: 10/13/23 16:33 Freq: Status: Active Protocol: Document 10/13/23 09:45 DCW (Rec: 10/13/23 16:42 DCW [id number]) Balance Tests Cabrera Balance Test Cabrera Balance Test Score 34/56 Cabrera Balance Assessment Evaluation Sitting to Standing Ability Independent w/Hands Unsupported Stance Supervision- 2 minutes Sitting Unsupported, Feet on Floor Safely- 2 minutes Standing to Sitting Ability Assist, Control w/Hands Transfer Ability Safely, Hand Use Unsupported Stance- Eyes Closed 3 seconds Unsupported Stance- Eyes Open Independent, <30 seconds Reaching Forward Standing Safely, 5 inches Pick- Up Object From Floor Supervision Look Behind Shoulder - Standing Supervision w/Turning Turning 360 Degrees Turns slowly, but safely Unsupported Stance, Alternating Feet on 4 Steps w/Supervision Stair Unsupported Tandem Stance Small Step- 30 seconds Unilateral Leg Stance Lifts Leg/Unable to Hold Total Score Cabrera Total Score (out of 56 points) 34 Cabrera Impairment Rating 20 to 39% Impaired (Score 34- 44) PT-OP-E Functional Tests Start: 10/13/23 16:33 Freq: Status: Active Protocol: Document 10/13/23 09:45 DCW (Rec: 10/13/23 16:42 DCW [id number]) Functional Tests Dynamic Gait Index (DGI) Score 12/15 PT-OP-M Strength Start: 10/13/23 16:33 Freq: Status: Active Protocol: Document 10/13/23 09:45 DCW (Rec: 10/13/23 16:42 DCW [id number]) Hip Strength Hip Manual Muscle Testing Right Flexion (L2) 3+ Fair+ Extension (S1) 4- Good- Abduction 4- Good- Adduction 4 Good External Rotation 4 Good Internal Rotation 4- Good- Left Flexion (L2) 3+ Fair+ Extension (S1) 4 Good Abduction 4- Good- Adduction 4 Good External Rotation 4 Good Internal Rotation 4- Good- Knee Strength Knee Manual Muscle Testing Right Flexion (S2) 4+ Good+ Extension (L3) 4+ Good+ Left Flexion (S2) 4+ Good+ Extension (L3) 4+ Good+ Ankle/Foot Strength Ankle and Foot Manual Muscle Testing Right Dorsiflexion (L4) 4 Good Left Dorsiflexion (L4) 4 Good PT-OP-Q Treatments Start: 10/13/23 16:33 Freq: Status: Active Protocol: Document 11/17/23 09:45 DCW (Rec: 11/17/23 10:28 DCW [id number]) Cardio Equipment Recumbent Elliptical ([employer]) Duration (Minutes) 5 Resistance 3 Seat Position 13 Gym Equipment Shuttle Recovery Unilateral Squats Resistance 37# Reps/Time x25 Bilateral Squats Resistance 75# Reps/Time 25 Shuttle Balance red Details Staggered Comments CGA with visual scanning Neuro Re-Education Treatment Balance Activities Retro stepping Reps/Duration 10 feet x4 Comments hands above bars CGA Tandem Details Tandem Ambulation Equipment // bars Reps/Duration 10' x6 Comments minimal UE use Foam Details 1. Head turns 2. eyes closed Surface AirEx Equipment // bars PT-OP-T Assessment and Plan Start: 10/13/23 16:33 Freq: Status: Active Protocol: Document 11/17/23 09:45 DCW (Rec: 11/17/23 10:28 DCW [id number]) Physical Therapy Assessment Impairments Impairments Activity Tolerance,Balance, Functional Activities, Functional Mobility,Gait,Soft Tissue Mobility,Strength Other Concerns Fall Risk High falls risk, per Cabrera (34/ 56) and DGI (12/15) scores Goals Three Impairment Pt displays B hip weakness, especially flexion (3+/5) and abduction (4-/5) Preparation Operator Goal (LTG) Pt to demonstrate MMT of at least 4/5 in bilateral hips in order to improve stability and gait tolerance LTG Duration 12/13/23 Two Impairment Pt presents with a significant increased risk of falls, per Cabrera and DGI Residential Goal (LTG) Pt to improve DGI score by at least 6 points to in order to exhibit decreased falls risk 11/17/23: LTG Duration 12/13/23 One Impairment Pt does not have an appropriate home exercise program Short Term Goal (STG) Pt to be independent and compliant with an appropriate HEP STG Duration 11/13/23 Assessment Summary Assessment Pt progressing well, DGI has improved from 12/15 at initial evaluation to today. Pt notes fewer instances of plopping into his chairs. Continue to focus on balance, gait, functional mobility, and strength. Physical Therapy Plan Frequency and Duration Frequency of Treatment 2x/Week Plan of Care Start Date 10/13/23 Plan of Care End Date 12/13/23 Next Visit Focus/Plan Next Note Type Treatment Note Next Visit Plan LE strengthening, static/ dynamic balance challenges
--- NOTE | 2023-12-01 16:08 | PT.OTN ---
Current Diagnoses Unsteadiness on feet (12/01/23) Other abnormalities of gait and mobility (12/01/23) Repeated falls (12/01/23) Other symptoms and signs involving the musculoskeletal system (12/01/23) Physical Therapy Treatment Note PT-OP-A Visit Information Start: 10/13/23 16:33 Freq: Status: Active Protocol: Document 12/01/23 13:10 AB (Rec: 12/01/23 16:08 AB [id number]) Out-Patient Physical Therapy Visit Information Visit Information Visit Type Treatment Note Visit Note Access Code: [email or web address] Visit Start Time 15:17 Visit Stop Time 16:00 Visit Number 11 Number of BOTANY TEACHER Visits 1 Evaluation Information Evaluation Date 10/13/23 PT-OP-B Current Condition Start: 10/13/23 16:33 Freq: Status: Active Protocol: Document 10/13/23 09:45 DCW (Rec: 10/14/23 10:04 DCW [id number]) Current Condition History of Current Condition Onset Date Multi-year history Current Complaints Poor balance, deconditioning, neuropathy History of Current Condition Pt is an 88 year old male presenting with poor balance and gait difficulty. Pt was seen at the [facility] public balance screening two months ago, and at that time, it was recommended that he get a referral for therapy due to poor performance. Pt has had a few recent falls, reports one happened missing a step when trying to step up a curb, and another occurred when trying to picker feeder a mini fridge. Notes no related injuries with the falls. Additionally, pt had a right TKA in 2008, reports that at the time, he went through PT, but that his knee hardware got broken, and now his right foot turns out a bit. PT-OP-C Subjective Start: 10/13/23 16:33 Freq: Status: Active Protocol: Document 12/01/23 13:10 AB (Rec: 12/01/23 16:08 AB [id number]) OP-PT Subjective Patient Comments Patient Comments Patient reports having intermittent pain left knee, none now. Patient reports using the peddler at home 20 minutes a day PT-OP-D Balance Start: 10/13/23 16:33 Freq: Status: Active Protocol: Document 10/13/23 09:45 DCW (Rec: 10/13/23 16:42 DCW [id number]) Balance Tests Cabrera Balance Test Cabrera Balance Test Score 34/56 Cabrera Balance Assessment Evaluation Sitting to Standing Ability Independent w/Hands Unsupported Stance Supervision- 2 minutes Sitting Unsupported, Feet on Floor Safely- 2 minutes Standing to Sitting Ability Assist, Control w/Hands Transfer Ability Safely, Hand Use Unsupported Stance- Eyes Closed 3 seconds Unsupported Stance- Eyes Open Independent, <30 seconds Reaching Forward Standing Safely, 5 inches Pick- Up Object From Floor Supervision Look Behind Shoulder - Standing Supervision w/Turning Turning 360 Degrees Turns slowly, but safely Unsupported Stance, Alternating Feet on 4 Steps w/Supervision Stair Unsupported Tandem Stance Small Step- 30 seconds Unilateral Leg Stance Lifts Leg/Unable to Hold Total Score Cabrera Total Score (out of 56 points) 34 Cabrera Impairment Rating 20 to 39% Impaired (Score 34- 44) PT-OP-E Functional Tests Start: 10/13/23 16:33 Freq: Status: Active Protocol: Document 10/13/23 09:45 DCW (Rec: 10/13/23 16:42 [facility] [id number]) Functional Tests Dynamic Gait Index (DGI) Score 12/15 PT-OP-M Strength Start: 10/13/23 16:33 Freq: Status: Active Protocol: Document 10/13/23 09:45 DCW (Rec: 10/13/23 16:42 DCW [id number]) Hip Strength Hip Manual Muscle Testing Right Flexion (L2) 3+ Fair+ Extension (S1) 4- Good- Abduction 4- Good- Adduction 4 Good External Rotation 4 Good Internal Rotation 4- Good- Left Flexion (L2) 3+ Fair+ Extension (S1) 4 Good Abduction 4- Good- Adduction 4 Good External Rotation 4 Good Internal Rotation 4- Good- Knee Strength Knee Manual Muscle Testing Right Flexion (S2) 4+ Good+ Extension (L3) 4+ Good+ Left Flexion (S2) 4+ Good+ Extension (L3) 4+ Good+ Ankle/Foot Strength Ankle and Foot Manual Muscle Testing Right Dorsiflexion (L4) 4 Good Left Dorsiflexion (L4) 4 Good PT-OP-Q Treatments Start: 10/13/23 16:33 Freq: Status: Active Protocol: Document 12/01/23 13:10 AB (Rec: 12/01/23 16:08 AB [id number]) Gym Equipment Shuttle Recovery Unilateral Squats Resistance 37# Reps/Time x25 Bilateral Squats Details VC to go slowly and ext more initates lack ~25 deg Resistance 75# Reps/Time X 8 short Range X25 Shuttle Balance red Details Staggered Comments CGA with visual scanning and head turns Therapeutic Exercises Supine Exercises Modified Florentin stretch Supine Exercise Name one LE on bolster and pillow one on mat Side bilateral Reps/Minutes 2 min each LE Comments VC for breathing from diaphragm Sidelying Exercises clamshell Sidelying Exercise Name HEP Side bilateral Resistance level one band Reps/Minutes no band X15 X10 level one band Comments back to wall this session Sitting Exercises seated hip abduction Sitting Exercise Name level 5 to HEP Side bilateral Resistance level 5 band Reps/Minutes one one minute hold Comments for glute med activation prior to balance ex Gait Training Gait Activity SPC Device Used SPC Level of Assistance supervision Surface floor Distance/Duration throughout session Treatment Focus avoiding dragging cane, trials of left UE Comments Verbal cues to avoid dragging the cane, patient ed cane must be positioned fwd. VC for trial left UE, patient switched to right nearly immediately. Neuro Re-Education Treatment Balance Activities step up taps Details CGA initiates with hands above bars Surface standing on foam tap to 6 inch step Equipment foam and 6 inch step Reps/Duration X10 Retro stepping Reps/Duration 10 feet x2 Comments hands above bars CGA Tandem Details Tandem Ambulation Equipment // bars Reps/Duration 10' x2 Comments minimal UE use PT-OP-T Assessment and Plan Start: 10/13/23 16:33 Freq: Status: Active Protocol: Document 12/01/23 13:10 AB (Rec: 12/01/23 16:08 AB [id number]) Physical Therapy Assessment Goals Three Impairment Pt displays B hip weakness, especially flexion (3+/5) and abduction (4-/5) Spring Internship Goal (LTG) Pt to demonstrate MMT of at least 4/5 in bilateral hips in order to improve stability and gait tolerance LTG Duration 12/13/23 Two Impairment Pt presents with a signifcant increased risk of falls, per Cabrera and DGI Care Home Goal (LTG) Pt to improve DGI score by at least 6 points to in order to exhibit decreased falls risk 11/17/23: LTG Duration 12/13/23 One Impairment Pt does not have an appropriate home exercise program Short Term Goal (STG) Pt to be independent and compliant with an appropriate HEP STG Duration 11/13/23 Assessment Summary Assessment Patient continues to use SPC right UE in spite of reporting more pain right LE. Good return demonstration for cane placement. Physical Therapy Plan Frequency and Duration Frequency of Treatment 2x/Week Plan of Care Start Date 10/13/23 Plan of Care End Date 12/13/23 Next Visit Focus/Plan Next Note Type Treatment Note Next Visit Plan LE strengthening, static/ dynamic balance challenges
--- NOTE | 2023-12-07 15:31 | PT.OPDS ---
Current Diagnoses Unsteadiness on feet (12/01/23) Other abnormalities of gait and mobility (12/01/23) Repeated falls (12/01/23) Other symptoms and signs involving the musculoskeletal system (12/01/23) Visit Care Team Role Provider Type Dionisio Anderson MD Attending Provider Physician Family Provider Primary Care Provider Referring Provider Specialty: [facility] Practice Address: [address] [place] [address], [facility] Email: [email or web address] Visit Number Visit Number 11 Discharge Summary PT-OP-B Current Condition Start: 10/13/23 16:33 Freq: Status: Active Protocol: Document 10/13/23 09:45 DCW (Rec: 10/14/23 10:04 DCW [id number]) Current Condition History of Current Condition Onset Date Multi-year history Current Complaints Poor balance, deconditioning, neuropathy History of Current Condition Pt is an 88 year old male presenting with poor balance and gait difficulty. Pt was seen at the [facility] public balance screening two months ago, and at that time, it was recommended that he get a referral for therapy due to poor performance. Pt has had a few recent falls, reports one happened missing a step when trying to step up a curb, and another occurred when trying to potato picker a mini fridge. Notes no related injuries with the falls. Additionally, pt had a right TKA in 2008, reports that at the time, he went through PT, but that his knee hardware got broken, and now his right foot turns out a bit. PT-OP-C Subjective Start: 10/13/23 16:33 Freq: Status: Active Protocol: Document 12/01/23 13:10 AB (Rec: 12/01/23 16:08 AB [id number]) OP-PT Subjective Patient Comments Patient Comments Patient reports having intermittent pain left knee, none now. Patient reports using the peddler at home 20 minutes a day PT-OP-D Balance Start: 10/13/23 16:33 Freq: Status: Active Protocol: Document 10/13/23 09:45 DCW (Rec: 10/13/23 16:42 DCW [id number]) Balance Tests Cabrera Balance Test Cabrera Balance Test Score 34/56 Cabrera Balance Assessment Evaluation Sitting to Standing Ability Independent w/Hands Unsupported Stance Supervision- 2 minutes Sitting Unsupported, Feet on Floor Safely- 2 minutes Standing to Sitting Ability Assist, Control w/Hands Transfer Ability Safely, Hand Use Unsupported Stance- Eyes Closed 3 seconds Unsupported Stance- Eyes Open Independent, <30 seconds Reaching Forward Standing Safely, 5 inches Pick- Up Object From Floor Supervision Look Behind Shoulder - Standing Supervision w/Turning Turning 360 Degrees Turns slowly, but safely Unsupported Stance, Alternating Feet on 4 Steps w/Supervision Stair Unsupported Tandem Stance Small Step- 30 seconds Unilateral Leg Stance Lifts Leg/Unable to Hold Total Score Cabrera Total Score (out of 56 points) 34 Cabrera Impairment Rating 20 to 39% Impaired (Score 34- 44) PT-OP-E Functional Tests Start: 10/13/23 16:33 Freq: Status: Active Protocol: Document 10/13/23 09:45 DCW (Rec: 10/13/23 16:42 DCW [id number]) Functional Tests Dynamic Gait Index (DGI) Score 12/15 PT-OP-M Strength Start: 10/13/23 16:33 Freq: Status: Active Protocol: Document 10/13/23 09:45 DCW (Rec: 10/13/23 16:42 DCW [id number]) Hip Strength Hip Manual Muscle Testing Right Flexion (L2) 3+ Fair+ Extension (S1) 4- Good- Abduction 4- Good- Adduction 4 Good External Rotation 4 Good Internal Rotation 4- Good- Left Flexion (L2) 3+ Fair+ Extension (S1) 4 Good Abduction 4- Good- Adduction 4 Good External Rotation 4 Good Internal Rotation 4- Good- Knee Strength Knee Manual Muscle Testing Right Flexion (S2) 4+ Good+ Extension (L3) 4+ Good+ Left Flexion (S2) 4+ Good+ Extension (L3) 4+ Good+ Ankle/Foot Strength Ankle and Foot Manual Muscle Testing Right Dorsiflexion (L4) 4 Good Left Dorsiflexion (L4) 4 Good PT-OP-T Assessment and Plan Start: 10/13/23 16:33 Freq: Status: Active Protocol: Document 12/07/23 15:30 DCW (Rec: 12/07/23 15:31 DCW [id number]) Physical Therapy Assessment Assessment Summary Assessment Pt's came into clinic to cancel remaining appointments and request discharge. Notes pt is experiencing neuro issues, and his legs aren't working well. Physical Therapy Plan Discharge Physical Therapy Discharge Reasons Patient Request
== END 2023-12-08 11:06 | disposition home or self-care (01) ==
LOC: PHYS 15:15
PROVIDERS: Family Provider Family Medicine; PCP Family Medicine; Referring Provider Family Medicine; Visit Provider Family Medicine
DX: R29.898 Other symptoms and signs involving the musculoskeletal system (principal); R26.89 Other abnormalities of gait and mobility; R26.81 Unsteadiness on feet; R29.6 Repeated falls
CPT/HCPCS: 97110; 97112; 97163; 97530

== ENCOUNTER → 2023-12-22 14:49 | Outpatient (CLI) | payer MEDICARE, BC, SELFPAY | PROVIDERS: Family Provider Family Medicine; PCP Family Medicine; Referring Provider Family Medicine; Visit Provider Family Medicine | DX: G62.89 Other specified polyneuropathies (principal) | CPT/HCPCS: 95886; 95911 ==

== ENCOUNTER → 2023-12-31 15:02 | Outpatient (CLI) | payer MEDICARE, BC, SELFPAY ==
--- NOTE | 2023-12-31 | DI.US.S_ITS ---
PROCEDURE: US CAROTID DOPPLER BI INDICATIONS: coronary artery disease TECHNIQUE: Color and pulse Doppler interrogation was performed of both carotid systems, with image documentation and velocity measurements. COMPARISON: Merged With [facility], US, US CAROTID BILATERAL, 08/03/2022, 14:10. FINDINGS: Stenosis calculations are based on SRU (Society of Radiologists in Ultrasound) criteria. Right side: Brachial blood pressure: 126/62 mm Hg. Common carotid artery peak systolic velocity: 111 cm/sec. Internal carotid artery peak systolic velocity: 94 cm/sec, compared to 163 centimeters/second. Internal carotid artery end diastolic velocity: 24 cm/sec. External carotid artery peak systolic velocity: 131 cm/sec. ICA/CCA peak systolic ratio: 0.9 . Riggs scale imaging description: Moderate plaque at the bifurcation Percent internal carotid artery stenosis: Less than 50% . Vertebral artery: Flow direction is antegrade. Left side: Brachial blood pressure: 119/62 mm Hg. Common carotid artery peak systolic velocity: 93 cm/sec. Internal carotid artery peak systolic velocity: 120 cm/sec, compared to 148 centimeters/second. Internal carotid artery end diastolic velocity: 27 cm/sec. External carotid artery peak systolic velocity: 209 cm/sec. ICA/CCA peak systolic ratio: 1.7 . Riggs scale imaging description: Moderate plaque at the bifurcation Percent internal carotid artery stenosis: Less than 50% . Vertebral artery: Flow direction is antegrade. IMPRESSION: Less than 50% stenosis of the internal carotid arteries bilaterally improved compared to prior exam. Dictated by: Gayatri Chandler M.D. on 12/31/2023 at 16:50 Approved by: Gayatri Chandler M.D. on 12/31/2023 at 16:51
== END ==
PROVIDERS: Family Provider Family Medicine; PCP Family Medicine; Referring Provider Nurse Practitioner; Visit Provider Nurse Practitioner
DX: I77.9 Disorder of arteries and arterioles, unspecified (principal); I65.23 Occlusion and stenosis of bilateral carotid arteries
CPT/HCPCS: 93880

== ENCOUNTER → 2024-03-02 09:58 | Outpatient (CLI) | payer MEDICARE, BC, SELFPAY ==
--- NOTE | 2024-03-02 10:00 | DI.MRI.S_ITS ---
PROCEDURE: MR LUMBAR SPINE WO CON INDICATIONS: Nerve impingement TECHNIQUE: Noncontrast sagittal T1 spin echo and T2 fast echo, sagittal STIR, and T2 fast spin echo through the lumbar spine. In cases with scoliosis, additional coronal T2 fast spin echo may be performed. COMPARISON: None. FINDINGS: Image quality: Diagnostic Alignment and Curvature: There is minimal retrolisthesis seen at L3-L4, with minimal anterolisthesis at L4-L5. Minimal retrolisthesis can be seen at L5-S1. Minimal levoconvex lumbar scoliotic curvature is seen. Bone Marrow: Marrow is of normal overall signal. No acute vertebral body compression fractures. Spinal Cord: Conus medullaris terminates at the L1 level. Visualized cord demonstrates normal signal and size. Paraspinous Soft Tissues: No paravertebral masses. T12-L1: Mild loss of disc height is seen. Loss of disc signal is seen. Mild generalized disc bulge is seen. No significant neural foraminal or central canal narrowing can be seen. L1-L2: Moderate loss of disc height is seen. Loss of disc signal is seen. Moderate generalized disc bulge is seen. There is a central disc osteophyte protrusion. Mild facet joint hypertrophy is seen. There is [id number] bilateral neural foraminal narrowing seen. Moderate central canal narrowing is seen. L2-L3: Moderate to severe loss of disc height and disc signal can be seen. Reactive marrow endplate changes are seen, which are hyperintense on T1-weighted and T2-weighted imaging and most consistent with fatty metaplasia (Modic type II changes). At least moderate disc bulge is seen, with a central disc osteophyte protrusion. Moderate facet joint hypertrophy is seen. Associated hypertrophy of the ligamentum flavum can be seen. There is [id number] left-sided and moderate to severe right-sided neural foraminal narrowing. There is a degree of compression seen upon the right L2 nerve root. There is moderate to severe central canal narrowing seen, as on series 7, image 18. L3-L4: Moderate loss of disc height is seen. Loss of disc signal is seen. At least moderate disc bulge is seen, with a central disc osteophyte protrusion. At least moderate facet hypertrophy is seen. Associated hypertrophy of the ligamentum flavum can be seen. There is moderate to severe bilateral neural foraminal narrowing seen, with an associated degree of compression seen upon the exiting nerve roots. Severe central canal narrowing is seen, as on series 7, image 23. L4-L5: Mild loss of disc height is seen. Loss of disc signal is seen. Moderate disc bulge is seen, which is eccentric to the right. There is a superimposed central disc protrusion. At least moderate facet hypertrophy is seen. Associated hypertrophy of the ligamentum flavum can be seen. There is at least moderate bilateral neural foraminal narrowing seen. There is a degree of compression seen upon the exiting nerve roots. Moderate central canal narrowing is seen. L5-S1: At least moderate loss of disc height and disc signal can be seen. Reactive marrow endplate changes are seen, which are hyperintense on T1-weighted and T2-weighted imaging and most consistent with fatty metaplasia (Modic type II changes). At least moderate disc bulge is seen, with a central disc extrusion. Mild to moderate facet hypertrophy is seen. There is at least moderate right-sided and moderate to severe left-sided neural foraminal narrowing. Moderate central canal narrowing is seen. IMPRESSION: Multiple levels of significant lumbar spine degenerative change can be seen. There is severe central canal narrowing at L3-L4. There is a central disc extrusion at L5-S1. Several sites of significant neural foraminal narrowing can be seen, with associated exiting nerve root compression. Dictated by: Bin Johnson M.D. on 03/02/2024 at 16:49 Approved by: Bin Johnson M.D. on 03/02/2024 at 16:53
== END ==
PROVIDERS: Family Provider Family Medicine; PCP Family Medicine; Referring Provider Family Medicine; Visit Provider Family Medicine
DX: M47.26 Other spondylosis with radiculopathy, lumbar region (principal); M47.27 Other spondylosis with radiculopathy, lumbosacral region; M51.17 Intervertebral disc disorders with radiculopathy, lumbosacral region; M48.061 Spinal stenosis, lumbar region without neurogenic claudication; M48.07 Spinal stenosis, lumbosacral region
CPT/HCPCS: 72148

== ENCOUNTER 2024-05-27 23:41 | Observation (INO) | payer MEDICARE, BC, SELFPAY ==
[2024-05-27 23:46] VITALS: PULSE 120; RESP 30
[2024-05-27 23:48] VITALS: BP 156/76; PULSE 115; RESP 25; O2SAT 96
[2024-05-27 23:49] VITALS: BP 156/76; PULSE 111; RESP 23; O2SAT 96; BMI 33.7
[2024-05-28] VITALS (20 sets, daily range): BP systolic 107–149; BP diastolic 61–74; PULSE 90–118; RESP 11–29; TEMP 36.3–36.8; O2SAT 92–98; BMI 33.7
[2024-05-28] MEDS: ONDANSETRON 4 MG/2 ML INJ IV ×3 (00:28→18:28)
--- NOTE | 2024-05-28 00:30 | PC.NURSE ---
pt vomited a large amount, pt was cleaned, gown changed and medication given
[2024-05-28 00:58] LABS: Add Manual Diff / Slide Review NO; Basophils Absolute Auto 0 /uL (0-100); Basophils Percent Auto 0.2 % (0-2); Eosinophils Absolute Auto 100 /uL (0-450); Eosinophils Percent Auto 0.7 % (2-4); Hematocrit 38.6 % (41-53); Hemoglobin 12.7 g/dL (13.5-17.5); Lymphocytes Absolute Auto 300 /uL (1100-4500); Lymphocytes Percent Auto 1.9 % (25-40); Mean Corpuscular HGB Conc 32.9 % (30-36); Mean Corpuscular Hemoglobin 30.5 PG (26-34); Mean Corpuscular Volume 92.7 fL (80-100); Monocytes Absolute Auto 600 /uL (0-900); Monocytes Percent Auto 4.7 % (3-14); Neutrophils Absolute Auto 12400 /uL (1500-7000); Neutrophils Percent Auto 92.5 % (50-75); Platelet Count 229 X10^3/uL (150-400); Red Blood Cell Count 4.16 X10^6/uL (4.5-5.9); Red Cell Distribution Width 15.4 % (11.6-14.8); White Blood Cell Count 13.4 X10^3/uL (4.5-11.0)
--- NOTE | 2024-05-28 00:59 | EKG_ITS ---
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
[2024-05-28 01:03] LABS: Alanine Aminotransferase 28 IU/L (<50); Albumin 4.8 g/dL (3.5-5.0); Albumin Globulin Ratio 1.5 (1.0-2.8); Alkaline Phosphatase 100 U/L (38-126); Aspartate Aminotransferase 34 IU/L (17-59); BUN Creatinine Ratio 14.5 (6-22); Bilirubin Total 0.6 mg/dL (0.2-1.3); Blood Urea Nitrogen 24 mg/dL (9-20); Calcium 9.9 mg/dL (8.4-10.2); Carbon Dioxide 19 mmol/L (22-32); Chloride 108 mmol/L (98-107); Estimated Glomerular Filt Rate 40 mL/min (>60); Globulin 3.2 g/dL (1.7-4.1); Glucose 149 mg/dL (80-110); HEMOLYSIS < 15 (0-50); Lipase 65 U/L (23-300); Potassium 4.5 mmol/L (3.4-5.1); Sodium 142 mmol/L (137-145)
--- NOTE | 2024-05-28 01:28 | DI.CT.S_ITS ---
PROCEDURE: CT ABDOMEN PELVIS W CON INDICATIONS: n/v feels distended. TECHNIQUE: After the administration of intravenous contrast, axial sections acquired from the lung bases to the pubic symphysis. Coronal and sagittal reformats were performed. For radiation dose reduction, the following was used: automated exposure control, adjustment of mA and/or kV according to patient size. COMPARISON: [facility], CT, CT ABDOMEN PELVIS W CON, 07/08/2019, 14:53. FINDINGS: Image quality: Diagnostic. Lower Chest: A small hiatal hernia is incidentally noted. ABDOMEN: Liver: No solid mass. Gallbladder: Removed. Biliary ducts: No biliary dilation. Pancreas: No ductal dilation. Spleen: Size is within normal limits. Adrenal Glands: A left adrenal nodule is seen, measuring up to 18 mm. No right adrenal nodules. Kidneys and Ureters: No hydronephrosis. No solid mass. No complex renal cystic lesion which requires follow up. Stomach and Bowel: Normal colonic caliber, without significant wall thickening. No dilated loops of small bowel are seen. Peritoneum: No abnormal intraperitoneal fluid. No free air. Ventral Wall: No significant ventral hernia. Abdominal Nodes: No retroperitoneal or mesenteric adenopathy by size criteria. Vessels: Aorta and inferior vena cava are normal in size. Atherosclerotic calcification is noted. PELVIS: Pelvic Organs: Unremarkable. Bladder: No bladder wall thickening, accounting for underdistention. Pelvic Nodes: No enlarged lymph nodes. Miscellaneous: There is a mild fat containing left inguinal hernia. Bones: No aggressive osseous abnormality. Generalized degenerative changes are seen. IMPRESSION: No definite cause of the patient's presenting symptoms can be seen. Additional findings: Small hiatal hernia Cholecystectomy Stable left adrenal nodule Mild fat containing left inguinal hernia Dictated by: Bin Johnson M.D. on 05/28/2024 at 0:49 Approved by: Bin Johnson M.D. on 05/28/2024 at 0:52
--- NOTE | 2024-05-28 01:32 | ED_ITS ---
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 Patient is on aspirin 81 mg daily, statin, amitriptyline for neuropathy no diabetes. Patient is started having nausea vomiting tonight for about 30 minutes. He was had a bloated sensation but no abdominal pain and states he feels distended. He was not had any fevers that he was aware of. Denies chest pain no shortness of breath. Has not had any diarrhea. He states he has a pretty large bowel movement that was well formed. No black or blood. States it was 1 of the largest he has had. He was not had any new swelling in his lower extremities. Patient continues to feel nauseated despite Zofran. Patient has had a prior cholecystectomy, had testicular surgery for prior testicular cancer. Has had a heart catheterization but no interventions. Describes allergies to oxycodone simethicone. No tobacco, alcohol or recreational drugs. Dr. Anderson's his primary care physician. Related Data Home Medications Medication Instructions Recorded Confirmed omeprazole 40 mg capsule,delayed 40 mg PO DAILY ##0 06/24/11 03/27/24 release aspirin 81 mg tablet,delayed 81 mg PO BEDTIME ##0 01/21/12 03/27/24 release multivitamin 1 tab PO DAILY ##0 01/21/12 03/27/24 Benefiber Powder 2 tsp PO DAILY 03/30/19 03/27/24 Boswellia 500 mg PO DAILY 03/30/19 03/27/24 Chondroitin Sulfate 1,200 mg PO DAILY 03/30/19 03/27/24 Vitamin B-12 1 tab PO DAILY 03/30/19 03/27/24 cholecalciferol (vitamin D3) 50 2,000 unit PO DAILY 03/30/19 03/27/24 mcg (2,000 unit) tablet (Vitamin D3) coenzyme Q10 100 mg capsule (Co 300 mg PO DAILY 03/30/19 03/27/24 Q-10) diltiazem HCl 120 mg 120 mg PO BEDTIME 03/30/19 03/27/24 capsule,extended release 24 hr nitroglycerin 0.4 mg/hr 0.4 mg topical DAILY 03/30/19 03/27/24 transdermal 24 hour patch omega-3 fatty acids-fish oil 340 1 cap PO DAILY ##0 03/30/19 03/27/24 mg-1,000 mg capsule (Fish Oil) turmeric 450 mg PO DAILY 03/30/19 03/27/24 amitriptyline 25 mg tablet 25 mg PO DAILY 06/02/21 03/27/24 melatonin 5 mg tablet 10 mg PO BEDTIME 06/02/21 03/27/24 ranolazine 500 mg tablet,extended 500 mg PO BID 06/02/21 03/27/24 release,12 hr (Ranexa) rosuvastatin 20 mg tablet 20 mg PO DAILY 06/02/21 03/27/24 Previous Rx's Medication Instructions Recorded acetaminophen 325 mg capsule 650 mg (2 x 325 mg) PO QID PRN 07/25/19 (Tylenol) pain #60 caps docusate sodium 100 mg capsule 100 mg PO BID #30 caps 07/25/19 (Colace) ibuprofen 200 mg tablet 800 mg (4 x 200 mg) PO Q6H PRN 07/25/19 pain #60 tabs vibegron 75 mg tablet (Gemtesa) 75 mg PO DAILY #90 tabs 03/27/24 Allergies Allergy/AdvReac Type Severity Reaction Status Date / Time simethicone Allergy Mild Diarrhea Verified 03/27/24 15:00 oxycodone [OXYCODONE] AdvReac Mild COMITING, Verified 03/27/24 15:00 HALLUCINATIONS Review of Systems Review of Systems ROS Unobtainable: All systems reviewed & are unremarkable except as noted in HPI and below Patient History Medical History Overactive bladder History of primary malignant neoplasm of testis History of tobacco use History of kidney stones Nocturia Urge incontinence Skin tear HLD (hyperlipidemia) HTN (hypertension) Back pain Enlarged prostate Neuropathy Headache, migraine Edema GERD (gastroesophageal reflux disease) Johnson's esophagus Testicular cancer Prinzmetal angina Surgical History Hx of right inguinal hernia repair (07/25/19) History of inguinal hernia repair History of surgery History of cataract removal with insertion of prosthetic lens History of knee replacement (~2013) History of knee replacement (2009) Status post cholecystectomy (2004) History of carpal tunnel repair (1989) Family History Mother Heart disease Social History household members: spouse Smoking Status: Former smoker alcohol intake: never Smoking Status: Former smoker alcohol intake frequency: 0-2 drinks per day Exam Narrative Exam Narrative: GENERAL: Alert and oriented x three, 89-year-old male in mild distress. HEENT: Head normocephalic, atraumatic, EOMI, no nasal congestion, pupils reactive, face symmetric, moist mucous membranes NECK: Supple, full range of motion CARDIOVASCULAR: Tachycardic but regular rhythm without murmurs, rubs or gallops. No JVD. No edema bilateral lower extremities. RESPIRATORY: Breath sounds equal bilaterally, no wheezes rales or rhonchi. No tachypnea or accessory muscle use ABDOMEN: Soft, nontender. Mild distended. Normoactive bowel sounds all 4 quadrants. No guarding or rebound, rigidity, no mass : No CVA tenderness EXTREMITIES: Normal range of motion, no clubbing or edema. Neurovascularly intact NEUROLOGICAL: Cranial nerves II through XII grossly intact. Moving all extremities SKIN: Warm, dry, no petechiae, no rashes or lesions. Initial Vital Signs Initial Vital Signs: Vital Signs Pulse Rate 120 H 05/27/24 23:46 Respiratory Rate 30 H 05/27/24 23:46 Course Orders Ordered: ED Orders 05/28/24 00:38 Complete Blood Count AUTO DIFF Stat Comprehensive Metabolic Panel Stat Lipase Stat EKG-12 Lead Stat 05/28/24 01:28 CT abdomen pelvis w con Stat 05/28/24 01:51 BNP [NT-proBNP (BNP-Adult 18+)] Stat Lactate (Lactic Acid) Stat Procalcitonin Stat 05/28/24 02:05 Blood Culture Stat Discontinued Medications Diphenhydramine HCl (Diphenhydramine 50 Mg/Ml Vial) 25 mg IV NOW ONE Stop: 05/28/24 01:29 Last Admin: 05/28/24 01:47 Dose: 25 mg Documented By: Sodium Chloride (Normal Saline 0.9%) 1,000 mls @ 1,000 mls/hr IV BOLUS ONE Stop: 05/28/24 02:27 Last Admin: 05/28/24 01:47 Dose: 1,000 mls/hr Documented By: Lorazepam (Lorazepam 2 Mg/Ml Inj) 0.5 mg IV NOW ONE Stop: 05/28/24 02:44 Last Admin: 05/28/24 02:51 Dose: 0.5 mg Documented By: MALIKA Ondansetron HCl (Ondansetron 4 Mg/2 Ml Inj) 4 mg IV NOW ONE Stop: 05/28/24 00:17 Last Admin: 05/28/24 00:28 Dose: 4 mg Documented By: MALIKA Ondansetron HCl (Ondansetron 4 Mg/2 Ml Inj) 4 mg IV NOW PRN PRN Reason: Nausea And Vomiting Ondansetron HCl (Ondansetron 4 Mg Odt) 4 mg SL NOW PRN PRN Reason: Nausea And Vomiting Vital Signs Vital signs: Vital Signs - 8 hr 05/27/24 23:46 05/27/24 23:48 05/27/24 23:48 Pulse Rate 120 H 115 H Respiratory Rate 30 H 25 H Blood Pressure 156/76 H Pulse Oximetry 96 Oxygen Delivery Method 05/27/24 23:49 05/28/24 00:00 05/28/24 00:00 Pulse Rate 111 H 110 H Respiratory Rate 23 15 Blood Pressure 156/76 H 131/64 Pulse Oximetry 96 95 Oxygen Delivery Method Room Air Room Air 05/28/24 00:26 05/28/24 00:26 05/28/24 00:30 Pulse Rate 110 H Respiratory Rate 21 Blood Pressure 107/71 133/74 Pulse Oximetry 94 Oxygen Delivery Method 05/28/24 00:30 05/28/24 01:00 05/28/24 01:00 Pulse Rate 111 H 118 H Respiratory Rate 19 21 Blood Pressure 138/74 Pulse Oximetry 95 95 Oxygen Delivery Method 05/28/24 01:30 05/28/24 01:30 05/28/24 02:00 Pulse Rate 117 H 105 H Respiratory Rate 21 22 Blood Pressure 145/74 H Pulse Oximetry 95 95 Oxygen Delivery Method MDM - Weakness Lab Data 05/27/24 23:37 05/27/24 23:37 Labs: Lab Results 05/27/24 05/28/24 Range/Units 23:37 01:51 WBC 13.4 H (4.5-11.0) X10^3/uL RBC 4.16 L (4.5-5.9) X10^6/uL Hgb 12.7 L (13.5-17.5) g/dL Hct 38.6 L (41-53) % MCV 92.7 (80-100) fL MCH 30.5 (26-34) PG MCHC 32.9 (30-36) % RDW 15.4 H (11.6-14.8) % Plt Count 229 (150-400) X10^3/uL Neut % (Auto) 92.5 H (50-75) % Lymph % (Auto) 1.9 L (25-40) % Brantley % (Auto) 4.7 (3-14) % Eos % (Auto) 0.7 L (2-4) % Baso % (Auto) 0.2 (0-2) % Neut # (Auto) 13845 H (8268-8855) /uL Lymph # (Auto) 300 L (5204-0231) /uL Brantley # (Auto) 600 (0-900) /uL Eos # (Auto) 100 (0-450) /uL Baso # (Auto) 0 (0-100) /uL Sodium 142 (137-145) mmol/L Potassium 4.5 (3.4-5.1) mmol/L Chloride 108 H (98-107) mmol/L Carbon Dioxide 19 L (22-32) mmol/L BUN 24 H (9-20) mg/dL Creatinine 1.65 H (0.66-1.25) mg/dL Estimated GFR 40 L (>60) mL/min BUN/Creatinine Ratio 14.5 (6-22) Glucose 149 H (80-110) mg/dL Lactate 2.4 H (0.7-2.1) mmol/L Calcium 9.9 (8.4-10.2) mg/dL Total Bilirubin 0.6 (0.2-1.3) mg/dL AST 34 (17-59) IU/L ALT 28 (<50) IU/L Alkaline Phosphatase 100 (38-126) U/L NT-Pro-B Natriuret Pep 68 (<450) pg/mL Total Protein 8.0 (6.3-8.2) g/dL Albumin 4.8 (3.5-5.0) g/dL Globulin 3.2 (1.7-4.1) g/dL Albumin/Globulin Ratio 1.5 (1.0-2.8) Lipase 65 (23-300) U/L Procalcitonin 0.397 (<0.5) ng/mL ECG Data Attestation: I personally reviewed and interpreted this ECG as follows: Prior ECG tracings: available for review Interpretation: Wide QRS, left axis deviation, rate of 117 QRS of 142 QTC of 535, I patient has left bundle-branch block from 05/26/2021. MDM Narrative Medical decision making narrative: EKG shows wide QRS tachycardia has a known left bundle-branch block. Labs show white count of 13 hemoglobin of 12 platelets of 229. Electrolytes show creatinine 1.65 is 1.4 3 years ago, BUN 24 CO2 is 19 with a chloride of 108 electrolytes such as sodium potassium are normal glucose is 149 LFTs are negative lipase is 65. Lactate is 2.4 Procalcitonin is normal Blood culture pending CT abdomen pelvis small hiatal hernia, left adrenal nodule cholecystectomy, mild fat containing left inguinal hernia. No obstruction or other definitive changes noted. Patient had fluids, patient had several rounds of antiemetics, QT was prolonged on his EKG so limited choices. Patient received additional fluids tachycardia slowly improved. 89-year-old male had nausea or vomiting feels little bit distended but has a large well formed bowel movement earlier today he was slightly tachycardic does not feel well with the persistent nausea and some bloating sensation. Labs do show little bit leukocytosis, appears he asked of the chronic kidney disease might be little bit dehydrated he was starting up for about half an hour. Lactate, protocol blood cultures were added on secondary to tachycardia he was afebrile and department. Patient's workup does not show any clear source there has been multiple patients this evening with nausea vomiting and diarrhea so maybe local viral illness but patient has had persistent vomiting despite antiemetics. Spoke with Dr. De La Fuente who is covering for Dr. Anderson who accepts for observation. Discharge Plan Departure Patient Disposition: Admitted as Observation Clinical Impression: Nausea & vomiting Admit Date/Time: 05/28/24 03:43 Admit Provider: Diallo De La Fuente
[2024-05-28] MEDS: SODIUM CHLORIDE 0.9% 1,000 ML 1000 ML IV (01:47)
[2024-05-28] MEDS: diphenhydrAMINE 50 MG/ML VIAL 25 MG IV (01:47)
[2024-05-28 02:36] LABS: Lactate (Lactic Acid) 2.4 mmol/L (0.7-2.1)
[2024-05-28 02:47] LABS: NT-proBNP (BNP-Adult 18+) 68 pg/mL (<450)
[2024-05-28] MEDS: LORazepam 2 MG/ML INJ 0.5 MG IV (02:51)
[2024-05-28 02:54] LABS: Procalcitonin 0.397 ng/mL (<0.5)
[2024-05-28 03:52] LABS: Reflexed Lactate in 2 Hours Y
[2024-05-28 04:44] LABS: Lactate 2HR (Lactic Acid Rflx) 2.4 mmol/L (0.7-2.1)
[2024-05-28] MEDS: LACTATED RINGERS 1,000 ML 125 ML IV ×2 (05:13→14:47)
--- NOTE | 2024-05-28 05:42 | PC.WOUNDPHOT ---
L side groin R groin L hand R Forearm/Hand R elbow L foot
--- NOTE | 2024-05-28 05:50 | PC.ADMIT ---
Addendum entered by Bee Gorman R.N. 05/28/24 05:53: Pt attempted to stand and pivot from ED gurney to bed- this proved difficult, requiring 2-3 people to adequately maneuver patient. Patient has shuffling gait known by spouse- appears when patient has not seen physical therapy. Original Note: [id number] Admission Note: Patient arrived to floor in no apparent cardiovascular or respiratory distress. Patient alert and oriented, hearing aids inserted, glasses and dentures removed. Spouse at bedside. Orders placed by admitting doctor. Provided pericare, brief change, gown change. Patient able to assist in cleaning and repositioning. Remains NPO until further notice. Lung sounds w/ crackles bilateral posterior. HR tachy approx 105-115. Afebrile. Able to make needs known. Photos of injuries taken. The patient,Diallo Herrera,89 y/o, was given written information regarding hospital policies, unit procedures and contact persons. Patient's smoking status: Former smoker. Vital Signs - 8 hr 05/27/24 23:46 05/27/24 23:48 05/27/24 23:48 Temperature Pulse Rate 120 H 115 H Respiratory Rate 30 H 25 H Blood Pressure 156/76 H Pulse Oximetry 96 Oxygen Delivery Method Oxygen Flow Rate 05/27/24 23:49 05/28/24 00:00 05/28/24 00:00 Temperature Pulse Rate 111 H 110 H Respiratory Rate 23 15 Blood Pressure 156/76 H 131/64 Pulse Oximetry 96 95 Oxygen Delivery Method Room Air Room Air Oxygen Flow Rate 05/28/24 00:26 05/28/24 00:26 05/28/24 00:30 Temperature Pulse Rate 110 H Respiratory Rate 21 Blood Pressure 107/71 133/74 Pulse Oximetry 94 Oxygen Delivery Method Oxygen Flow Rate 05/28/24 00:30 05/28/24 01:00 05/28/24 01:00 Temperature Pulse Rate 111 H 118 H Respiratory Rate 19 21 Blood Pressure 138/74 Pulse Oximetry 95 95 Oxygen Delivery Method Oxygen Flow Rate 05/28/24 01:30 05/28/24 01:30 05/28/24 02:00 Temperature Pulse Rate 117 H 105 H Respiratory Rate 21 22 Blood Pressure 145/74 H Pulse Oximetry 95 95 Oxygen Delivery Method Oxygen Flow Rate 05/28/24 02:30 05/28/24 03:00 05/28/24 03:30 Temperature Pulse Rate 106 H 107 H 110 H Respiratory Rate 28 H 11 L 25 H Blood Pressure Pulse Oximetry 94 93 92 Oxygen Delivery Method Oxygen Flow Rate 05/28/24 04:00 05/28/24 04:16 05/28/24 04:17 Temperature Pulse Rate 110 H 110 H Respiratory Rate 29 H 24 Blood Pressure 149/72 H Pulse Oximetry 93 95 Oxygen Delivery Method Room Air Room Air Oxygen Flow Rate 05/28/24 04:23 05/28/24 04:46 Temperature 97.8 F Pulse Rate 110 H Respiratory Rate 20 Blood Pressure 135/69 Pulse Oximetry 94 Oxygen Delivery Method Room Air Oxygen Flow Rate 0
[2024-05-28] MEDS: ENOXAPARIN 30 MG/0.3 ML SYRINGE SUBCUT (09:09)
--- NOTE | 2024-05-28 09:40 | PM.HP.IH.1 ---
History of Present Illness History of Present Illness Date Patient Seen: 05/28/24 Time Patient Seen: 09:41 Chief complaint: weakness Narrative: 89-year-old male, normally sees Dr. Dionisio Anderson at [facility], presented to the emergency department yesterday with nausea and vomiting that was unrelenting. It has been going on for about 30 minutes upon presentation. He reported some degree of abdominal distention sensation but no real pain. No fevers. No cold or flu symptoms. Last bowel movement was earlier in the day and super large, and did immediately precede the onset of the nausea and vomiting. No change in color or consistency of that particular stool. In the ER he was given a dose of Zofran which perhaps helped a small degree but he continued with emesis and nausea. ER workup was essentially unremarkable. Slightly elevated white count and lactate but normal plain film and CT scan imaging of the abdomen. 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 Still feels bloated and distended in his abdomen but without pain or discomfort to accompany that. Does not really feel like he was hungry yet though however [facility] Medical History Non-sustained ventricular tachycardia Mixed hyperlipidemia Coronary artery disease LAFB (left anterior fascicular block) SVT (supraventricular tachycardia) Essential (primary) hypertension Overactive bladder History of primary malignant neoplasm of testis History of tobacco use History of kidney stones Skin tear HLD (hyperlipidemia) HTN (hypertension) Back pain Enlarged prostate Neuropathy Headache, migraine Edema GERD (gastroesophageal reflux disease) Johnson's esophagus Testicular cancer Prinzmetal angina Surgical History Hx of right inguinal hernia repair (07/25/19) History of inguinal hernia repair History of surgery History of cataract removal with insertion of prosthetic lens History of knee replacement (~2013) History of knee replacement (2009) Status post cholecystectomy (2004) History of carpal tunnel repair (1989) Family History Mother Heart disease Stroke Father Stroke Heart disease Brother Esophageal cancer Stomach cancer Social History household members: spouse Smoking Status: Former smoker alcohol intake: never substance use type: does not use Meds Home Medications and Allergies Home Medications Medication Instructions Recorded Confirmed Type omeprazole 40 mg capsule,delayed 40 mg PO DAILY ##0 06/24/11 05/28/24 History release aspirin 81 mg tablet,delayed 81 mg PO BEDTIME ##0 01/21/12 05/28/24 History release multivitamin 1 tab PO DAILY ##0 01/21/12 05/28/24 History Boswellia 500 mg PO DAILY 03/30/19 05/28/24 History Chondroitin Sulfate 1,200 mg PO DAILY 03/30/19 05/28/24 History Vitamin B-12 1 tab PO DAILY 03/30/19 05/28/24 History cholecalciferol (vitamin D3) 50 2,000 unit PO DAILY 03/30/19 05/28/24 History mcg (2,000 unit) tablet (Vitamin D3) coenzyme Q10 100 mg capsule (Co 300 mg PO DAILY 03/30/19 05/28/24 History Q-10) diltiazem HCl 120 mg 120 mg PO BEDTIME 03/30/19 05/28/24 History capsule,extended release 24 hr nitroglycerin 0.4 mg/hr 0.4 mg topical DAILY 03/30/19 05/28/24 History transdermal 24 hour patch omega-3 fatty acids-fish oil 340 1 cap PO DAILY ##0 03/30/19 05/28/24 History mg-1,000 mg capsule (Fish Oil) turmeric 450 mg PO DAILY 03/30/19 05/28/24 History acetaminophen 325 mg capsule 650 mg (2 x 325 mg) PO QID PRN 07/25/19 05/28/24 Rx (Tylenol) pain #60 caps docusate sodium 100 mg capsule 100 mg PO BID #30 caps 07/25/19 05/28/24 Rx (Colace) ibuprofen 200 mg tablet 800 mg (4 x 200 mg) PO Q6H PRN 07/25/19 05/28/24 Rx pain #60 tabs amitriptyline 25 mg tablet 25 mg PO DAILY 06/02/21 05/28/24 History melatonin 5 mg tablet 10 mg PO BEDTIME 06/02/21 05/28/24 History rosuvastatin 20 mg tablet 20 mg PO DAILY 06/02/21 05/28/24 History vibegron 75 mg tablet (Gemtesa) 75 mg PO DAILY #90 tabs 03/27/24 05/28/24 Rx duloxetine 20 mg capsule,delayed 20 mg PO DAILY 05/28/24 05/28/24 History release gabapentin 100 mg capsule 100 mg PO BEDTIME 05/28/24 05/28/24 History galantamine 12 mg tablet 12 mg PO BEDTIME 05/28/24 05/28/24 History polyethylene glycol 3350 17 17 g PO DAILY 05/28/24 05/28/24 History gram/dose oral powder (Miralax) ranolazine 500 mg tablet,extended 500 mg PO BID 05/28/24 05/28/24 History release,12 hr Allergies Allergy/AdvReac Type Severity Reaction Status Date / Time simethicone Allergy Mild Diarrhea Verified 03/27/24 15:00 oxycodone [OXYCODONE] AdvReac Mild COMITING, Verified 03/27/24 15:00 HALLUCINATIONS Review of Systems Review of Systems ROS: Yes All systems reviewed with the patient and are negative except as otherwise documented Exam Vital Signs (past 8 hours): - 05/28/24 02:00 05/28/24 02:30 05/28/24 03:00 Temperature Pulse Rate 105 H 106 H 107 H Respiratory Rate 22 28 H 11 L Blood Pressure Pulse Oximetry 95 94 93 Oxygen Delivery Method Oxygen Flow Rate 05/28/24 03:30 05/28/24 04:00 05/28/24 04:16 Temperature Pulse Rate 110 H 110 H 110 H Respiratory Rate 25 H 29 H 24 Blood Pressure Pulse Oximetry 92 93 95 Oxygen Delivery Method Room Air Room Air Oxygen Flow Rate 05/28/24 04:17 05/28/24 04:23 05/28/24 04:46 Temperature 97.8 F Pulse Rate 110 H Respiratory Rate 20 Blood Pressure 149/72 H 135/69 Pulse Oximetry 94 Oxygen Delivery Method Room Air Oxygen Flow Rate 0 05/28/24 07:00 05/28/24 08:00 Temperature 97.3 F L Pulse Rate 98 H Respiratory Rate 15 Blood Pressure 135/61 Pulse Oximetry 95 Oxygen Delivery Method Room Air Oxygen Flow Rate 0 Oxygen Delivery Method Room Air Oxygen Flow Rate 0 Narrative Exam Narrative: Elderly male in no obvious distress lying in hospital bed HEENT unremarkable Lungs-clear with good breath sounds anteriorly and posteriorly Heart-regular rate rhythm no murmur rub or gallop Abdomen-minimally distended positive bowel tones no rebound or guarding no fluid wave Neuro-alert and oriented x3 moves all 4 extremities gait not tested no focal findings to basic exam Objective ECG Impression: Increased heart rate otherwise unchanged from previous Imaging CT scan - abdomen: Radiologist's impression: PROCEDURE: CT ABDOMEN PELVIS W CON INDICATIONS: n/v feels distended. TECHNIQUE: After the administration of intravenous contrast, axial sections acquired from the lung bases to the pubic symphysis. Coronal and sagittal reformats were performed. For radiation dose reduction, the following was used: automated exposure control, adjustment of mA and/or kV according to patient size. COMPARISON: [facility], CT, CT ABDOMEN PELVIS W CON, 07/08/2019, 14:53. FINDINGS: Image quality: Diagnostic. Lower Chest: A small hiatal hernia is incidentally noted. ABDOMEN: Liver: No solid mass. Gallbladder: Removed. Biliary ducts: No biliary dilation. Pancreas: No ductal dilation. Spleen: Size is within normal limits. Adrenal Glands: A left adrenal nodule is seen, measuring up to 18 mm. No right adrenal nodules. Kidneys and Ureters: No hydronephrosis. No solid mass. No complex renal cystic lesion which requires follow up. Stomach and Bowel: Normal colonic caliber, without significant wall thickening. No dilated loops of small bowel are seen. Peritoneum: No abnormal intraperitoneal fluid. No free air. Ventral Wall: No significant ventral hernia. Abdominal Nodes: No retroperitoneal or mesenteric adenopathy by size criteria. Vessels: Aorta and inferior vena cava are normal in size. Atherosclerotic calcification is noted. PELVIS: Pelvic Organs: Unremarkable. Bladder: No bladder wall thickening, accounting for underdistention. Pelvic Nodes: No enlarged lymph nodes. Miscellaneous: There is a mild fat containing left inguinal hernia. Bones: No aggressive osseous abnormality. Generalized degenerative changes are seen. IMPRESSION: No definite cause of the patient's presenting symptoms can be seen. Additional findings: Small hiatal hernia Cholecystectomy Stable left adrenal nodule Mild fat containing left inguinal hernia Dictated by: Bin Johnson M.D. on 05/28/2024 at 0:49 Approved by: Bin Johnson M.D. on 05/28/2024 at 0:52 Labs 05/28/24 10:40 05/28/24 10:40 Labs: Laboratory Results - last 24 hr 05/27/24 05/28/24 05/28/24 23:37 01:51 04:16 WBC 13.4 H RBC 4.16 L Hgb 12.7 L Hct 38.6 L MCV 92.7 MCH 30.5 MCHC 32.9 RDW 15.4 H Plt Count 229 Neut % (Auto) 92.5 H Lymph % (Auto) 1.9 L [place] % (Auto) 4.7 Eos % (Auto) 0.7 L Baso % (Auto) 0.2 Neut # (Auto) 17496 H Lymph # (Auto) 300 L [place] # (Auto) 600 Eos # (Auto) 100 Baso # (Auto) 0 Sodium 142 Potassium 4.5 Chloride 108 H Carbon Dioxide 19 L BUN 24 H Creatinine 1.65 H Estimated GFR 40 L BUN/Creatinine Ratio 14.5 Glucose 149 H Lactate 2.4 H 2.4 H Calcium 9.9 Total Bilirubin 0.6 AST 34 ALT 28 Alkaline Phosphatase 100 NT-Pro-B Natriuret Pep 68 Total Protein 8.0 Albumin 4.8 Globulin 3.2 Albumin/Globulin Ratio 1.5 Lipase 65 Procalcitonin 0.397 Assessment & Plan Assessment & Plan narrative: 1. Persistent nausea and vomiting-question whether this relates to some sort of viral gastroenteritis. ER physician told me there have been a sharp uptake in similar presenting symptoms she was the course of the last several days. No other particular findings on his evaluation to suggest another etiology. Does have a minimally elevated white count and minimally elevated lactate. No clear source of infection otherwise such as diverticulitis etcetera. No source of blood that we would been able to identify and hemoglobin hematocrit are stable so doubt GI bleeding etcetera. Procalcitonin also negative arguing against a bacterial infection At this point continue to hydrate with fluids and supply antiemetics as necessary. Patient did present somewhat tachycardic and does have a cardiac history but troponin was negative. He was ECG he was essentially unchanged from previous except for the increase in heart rate (he does have an abnormal ECG at baseline including left anterior fascicular block which may mask some subtle evidence of ischemia). This does not appear to be a primary cardiac presentation to me either. Patient does seem to have a somewhat prolonged QT interval and will need to be cautious with some of the antiemetics such as ondansetron which can like than this. I will place patient on telemetry as well for this indication. If we can control his symptoms and back off on his antiemetics may be able to discontinue telemetry as well. Given his improvement without any emesis for the last several hours will cautiously give him liquid diet and if does well with that will advance to more complex foods for this evening and perhaps might be ready for discharge as soon as tomorrow 2. Hypertension-when patient is able to take orals again will resume his usual meds which include the diltiazem 3. Hyperlipidemia-resume statin therapy when able to take orals 4. Coronary disease-no evidence of active ischemia at this time in my opinion as above 5. VTE prophylaxis-SCDs and Lovenox has been ordered 6. Code status-patient requests no code in no resuscitative efforts in the event of a sudden cardiac or respiratory arrest. Had long discussion with him and that is been his wishes for quite a long time. It did suspend that for surgery done over in [place] some years ago but continues to believe that is something disastrous like that happens with this hospitalization he would not want to be resuscitated. Discussed with him and spouse who participated in the discussion that I do not have any reason to anticipate that is imminent or likely to happen during this hospitalization. Time-Based Coding :: [TOTAL MINUTES] spent with patient and on the chart (including review of chart, obtaining history, exam, reviewing outside data, placing orders, documenting exam and treatment plan, and counseling patient) on [DATE]. Quality VTE Deep Vein Thrombosis/Pulmonary Embolism Present on Admission: No [facility] Community Mental Health Worker Document charge(s): Yes Charge Codes Initial inpatient/observation care: [id number]
[2024-05-28] MEDS: NITROGLYCERIN 0.4 MG PATCH TOP (10:08)
[2024-05-28 10:51] LABS: Add Manual Diff / Slide Review NO; Basophils Absolute Auto 100 /uL (0-100); Basophils Percent Auto 0.5 % (0-2); Eosinophils Absolute Auto 0 /uL (0-450); Hematocrit 36.6 % (41-53); Lymphocytes Absolute Auto 200 /uL (1100-4500); Lymphocytes Percent Auto 1.4 % (25-40); Mean Corpuscular HGB Conc 32.8 % (30-36); Mean Corpuscular Hemoglobin 30.5 PG (26-34); Monocytes Absolute Auto 500 /uL (0-900); Neutrophils Absolute Auto 11100 /uL (1500-7000); Neutrophils Percent Auto 94.1 % (50-75); Platelet Count 182 X10^3/uL (150-400); Red Blood Cell Count 3.94 X10^6/uL (4.5-5.9); Red Cell Distribution Width 15.5 % (11.6-14.8); White Blood Cell Count 11.8 X10^3/uL (4.5-11.0)
[2024-05-28 11:12] LABS: Alanine Aminotransferase 26 IU/L (<50); Albumin 4.1 g/dL (3.5-5.0); Albumin Globulin Ratio 1.5 (1.0-2.8); Alkaline Phosphatase 67 U/L (38-126); Aspartate Aminotransferase 32 IU/L (17-59); BUN Creatinine Ratio 17.3 (6-22); Bilirubin Total 0.6 mg/dL (0.2-1.3); Blood Urea Nitrogen 26 mg/dL (9-20); Carbon Dioxide 21 mmol/L (22-32); Chloride 110 mmol/L (98-107); Estimated Glomerular Filt Rate 45 mL/min (>60); Globulin 2.8 g/dL (1.7-4.1); Glucose 116 mg/dL (80-110); HEMOLYSIS < 15 (0-50); Potassium 4.6 mmol/L (3.4-5.1); Sodium 141 mmol/L (137-145); Total Protein 6.9 g/dL (6.3-8.2)
[2024-05-28] MEDS: RANOLAZINE 500 MG TAB.ER.12H PO ×2 (12:03→20:11)
[2024-05-28 15:05] LABS: Adenovirus F 40/41 Not Detected (Not Detect); Astrovirus Not Detected (Not Detect); Campylobacter Not Detected (Not Detect); Clostridium difficile toxin AB Not Detected (Not Detect); Cryptosporidium Not Detected (Not Detect); Cyclospora cayetanensis Not Detected (Not Detect); Entamoeba histolytica Not Detected (Not Detect); Enteroaggregative E.coli Not Detected (Not Detect); Enteropathogenic E.coli Not Detected (Not Detect); Enterotoxigenic E.coli It/st Not Detected (Not Detect); Giardia lamblia Not Detected (Not Detect); Norovirus GI/GII Detected (Not Detect); Plesiomonsa shigelloides Not Detected (Not Detect); Rotavirus A Not Detected (Not Detect); Salmonella Not Detected (Not Detect); Sapovirus Not Detected (Not Detect); Shiga-like toxin-prod E.coli Not Detected (Not Detect); Shigella/Enteroinvasive E.coli Not Detected (Not Detect); Vibrio Not Detected (Not Detect); Vibrio cholerae Not Detected (Not Detect); Yersinia enterocolitica Not Detected (Not Detect)
--- NOTE | 2024-05-28 15:17 | CM.DANOTE ---
Patient is an 89 yo male who was admitted OBS Status on 05/28/24 today for intractable n/v and tachy. Pt has MCR and BX FED for insurance and his PCP is Dr. Dionisio Anderson at [facility]. EMR was reviewed. Per MD, pt with hx of remote testicular CA, hx of angina and cholecystectomy and admitted for medical management. Per UR RN, met bedside with pt and spouse and explained role and they confirm they lives at home in [place] and both are fairly independent at baseline and pt typically uses a cane for ambulation and quite [place] and uses hearing aides and no longer drives but relies on spouse and others. Pt with no recent hx of admission. Pt preference is to d/c home when stable but currently below baseline with mobility. Per RN, pt was 2PA at admission from [facility] to bed. PT/OT orders likely needed when pt more medically appropriate, maybe tomorrow Mon. Plan: SW to follow closely for pt progress and PT/OT eval to determine SNF vs home when medically stable. NOAM Graff Discharge Planning/Care Management CM Discharge Assessment Start: 05/28/24 15:13 Freq: Status: Active Protocol: Document 05/28/24 15:14 BF (Rec: 05/28/24 15:17 BF [id number]) Discharge Planning Assessment Assigned Carbon Dioxide Operator NOAM [place] DPOA/Assigned Designee Name spouse Ly Advance Directives? Yes Advance Directives on File Yes History Provided By Patient,Significant Other, Medical Record Has Patient been admitted in last 30 No days? Prior Living Arrangements House Household Members spouse Type of transporation used prior to Relies on Others admit Independent with ADL's Yes Is patient alert and oriented? Yes Caregiver for Another No DME Already Rented / Owned Cane Comment Follow for possible PT/OT eval Barriers to Discharge No Discharge Plan Home with Home Health Transportation Arrangement Spouse bedside and can likely transport Additional Comment Pending PT/OT orders and eval Whiteboard Updated in Patient Room with Yes name and ext. # of Carbon Dioxide Operator Review Status In Process Please Provide Date Initial DC 05/28/24 Assessment Was Performed Next Review Type Continued Stay Review
[2024-05-28] MEDS: ATORVASTATIN 20 MG TABLET 40 MG PO (20:10)
[2024-05-28] MEDS: MELATONIN 3 MG TABLET 9 MG PO (20:10)
[2024-05-28] MEDS: AMITRIPTYLINE 25 MG TABLET PO (20:10)
[2024-05-28] MEDS: dilTIAZem CD 120 MG CAP PO (20:10)
[2024-05-28] MEDS: GABAPENTIN 100 MG CAPSULE PO (20:10)
[2024-05-29] MEDS: LACTATED RINGERS 1,000 ML 80 ML IV (00:21)
[2024-05-29] MEDS: ONDANSETRON 4 MG/2 ML INJ IV ×2 (00:51→05:24)
[2024-05-29 03:00] VITALS: BP 128/65; PULSE 83; RESP 18; TEMP 36.1; O2SAT 96
[2024-05-29] MEDS: PANTOPRAZOLE DR 40 MG TABLET PO (05:24)
[2024-05-29 05:33] LABS: Add Manual Diff / Slide Review NO; Basophils Absolute Auto 0 /uL (0-100); Basophils Percent Auto 0.3 % (0-2); Eosinophils Absolute Auto 0 /uL (0-450); Eosinophils Percent Auto 0.3 % (2-4); Hematocrit 33.6 % (41-53); Hemoglobin 11.4 g/dL (13.5-17.5); Lymphocytes Absolute Auto 600 /uL (1100-4500); Lymphocytes Percent Auto 8.9 % (25-40); Mean Corpuscular HGB Conc 34.1 % (30-36); Mean Corpuscular Hemoglobin 31.5 PG (26-34); Mean Corpuscular Volume 92.4 fL (80-100); Monocytes Absolute Auto 500 /uL (0-900); Monocytes Percent Auto 6.9 % (3-14); Neutrophils Absolute Auto 5700 /uL (1500-7000); Neutrophils Percent Auto 83.6 % (50-75); Platelet Count 147 X10^3/uL (150-400); Red Blood Cell Count 3.64 X10^6/uL (4.5-5.9); Red Cell Distribution Width 15.6 % (11.6-14.8); White Blood Cell Count 6.8 X10^3/uL (4.5-11.0)
[2024-05-29 05:47] LABS: Alanine Aminotransferase 27 IU/L (<50); Albumin 3.4 g/dL (3.5-5.0); Albumin Globulin Ratio 1.3 (1.0-2.8); Alkaline Phosphatase 60 U/L (38-126); Aspartate Aminotransferase 46 IU/L (17-59); BUN Creatinine Ratio 18.2 (6-22); Bilirubin Total 0.7 mg/dL (0.2-1.3); Blood Urea Nitrogen 24 mg/dL (9-20); Calcium 8.5 mg/dL (8.4-10.2); Carbon Dioxide 21 mmol/L (22-32); Chloride 108 mmol/L (98-107); Estimated Glomerular Filt Rate 52 mL/min (>60); Globulin 2.6 g/dL (1.7-4.1); Glucose 104 mg/dL (80-110); HEMOLYSIS < 15 (0-50); Potassium 3.6 mmol/L (3.4-5.1); Sodium 136 mmol/L (137-145)
[2024-05-29 07:00] VITALS: BP 134/69; PULSE 83; RESP 17; TEMP 36.4; O2SAT 95
--- NOTE | 2024-05-29 08:29 | P.DS_ITS ---
History of Present Illness History of Present Illness Date Patient Seen: 05/29/24 Time Patient Seen: 08:30 Date of Onset of Symptoms: 05/26/24 Chief complaint: weakness Narrative: 89-year-old male, normally sees Dr. Dionisio Anderson at [facility], presented to the emergency department yesterday with nausea and vomiting that was unrelenting. It has been going on for about 30 minutes upon presentation. He reported some degree of abdominal distention sensation but no real pain. No fevers. No cold or flu symptoms. Last bowel movement was earlier in the day and super large, and did immediately precede the onset of the nausea and vomiting. No change in color or consistency of that particular stool. In the ER he was given a dose of Zofran which perhaps helped a small degree but he continued with emesis and nausea. ER workup was essentially unremarkable. Slightly elevated white count and lactate but normal plain film and CT scan imaging of the abdomen. 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 Still feels bloated and distended in his abdomen but without pain or discomfort to accompany that. Does not really feel like he was hungry yet though however Discharge Providers Provider Date of admission: 05/28/24 03:43 Discharge Date: 05/29/24 Primary care physician: Dionisio Anderson MD Discharge provider: Dionisio Anedrson MD Summary Hospital Course Discharge Diagnosis: Persistent nausea and vomiting Norovirus Tachycardia Dehydration Hypertension Hyperlipidemia Coronary artery disease Hospital Course: Persistent nausea and vomiting. Patient was admitted to the hospital. Given persistent antiemetics. And history of prolonged QT was considered and antiemetics were picked based on that. Patient did well. Had no major issues. Over the next 24 hours seem to be improving. As of this morning he was normal and having no nausea. Norovirus. Suspect cause of his nausea and vomiting. In his diarrhea. Bowel movements have slowed. He is feeling pretty much back to normal. Does not feel like his diarrhea is going to resolve until he starts eating some has not really eaten anything more than just fluids. But does not have any issues with feeling like he can eat. Otherwise no change. Will follow-up 1 week. Tachycardia. Patient presented with tachycardia. Negative workup for cardiac issues troponin was negative. EKG was had no change. It was felt to be secondary to dehydration and his persistent nausea and vomiting. Hydration was taken relatively aggressively over the 1st 24 hours and patient has been doing well since. Having no recurrence of tachycardia. Completely resolved. Dehydration. [id number] on presentation. Was IV hydrated. Has done well since. Euvolemic today. Will follow as outpatient. Hypertension. Stable. Hyperlipidemia. No issue during treatment. Will continue usual meds. Coronary artery disease. No evidence of coronary disease. Will follow. Exam Vital Signs (past 8 hours): - 05/29/24 03:00 05/29/24 07:00 Temperature 97 F L 97.6 F Pulse Rate 83 83 Respiratory Rate 18 17 Blood Pressure 128/65 134/69 Pulse Oximetry 96 95 Oxygen Flow Rate 0 Oxygen Delivery Method Room Air Oxygen Flow Rate 0 Narrative Exam Narrative: Alert male in no acute distress Mucous membranes moist. Neck supple without adenopathy lungs are clear. Heart is regular rate and rhythm. No murmurs clicks rubs or gallops. Extremities without edema. Objective Labs 05/29/24 05:04 05/29/24 05:04 Labs: Laboratory Results - last 24 hr 05/28/24 05/28/24 05/29/24 10:40 13:00 05:04 WBC 11.8 H 6.8 RBC 3.94 L 3.64 L Hgb 12.0 L 11.4 L Hct 36.6 L 33.6 L MCV 93.0 92.4 MCH 30.5 31.5 MCHC 32.8 34.1 RDW 15.5 H 15.6 H Plt Count 182 147 L Neut % (Auto) 94.1 H 83.6 H Lymph % (Auto) 1.4 L 8.9 L [place] % (Auto) 4.0 6.9 Eos % (Auto) 0.0 L 0.3 L Baso % (Auto) 0.5 0.3 Neut # (Auto) 72374 H 5700 Lymph # (Auto) 200 L 600 L [place] # (Auto) 500 500 Eos # (Auto) 0 0 Baso # (Auto) 100 0 Sodium 141 136 L Potassium 4.6 3.6 Chloride 110 H 108 H Carbon Dioxide 21 L 21 L BUN 26 H 24 H Creatinine 1.50 H 1.32 H Estimated GFR 45 L 52 L BUN/Creatinine Ratio 17.3 18.2 Glucose 116 H 104 Calcium 9.0 8.5 Total Bilirubin 0.6 0.7 AST 32 46 ALT 26 27 Alkaline Phosphatase 67 60 Total Protein 6.9 6.0 L Albumin 4.1 3.4 L Globulin 2.8 2.6 Albumin/Globulin Ratio 1.5 1.3 Stl C. cayetanensis PCR Not detected Stool Rotavirus (PCR) Not detected Stool Adenovirus (PCR) Not detected Stool Astrovirus (PCR) Not detected Stool Cryptosporidium PCR Not detected Stl E.coli Shiga Tox PCR Not detected St Sh/Enteroin Ecoli PCR Not detected Stl Enterotoxigenic E PCR Not detected Stool EPEC (PCR) Not detected Stl E. histolytica PCR Not detected Stool Giardia Lamblia PCR Not detected Stool Sapovirus (PCR) Not detected Stl P. shigelloides PCR Not detected St Y.enterocolitica PCR Not detected Stool Vibrio (PCR) Not detected Stl Vibrio cholerae PCR Not detected Stl Enteroaggr Ecoli PCR Not detected Stl Norovirus GI/GII PCR Detected Campylobacter (PCR) Not detected C. difficile Tox (PCR) Not detected Salmonella (PCR) Not detected [facility] Medical History Non-sustained ventricular tachycardia Mixed hyperlipidemia Coronary artery disease LAFB (left anterior fascicular block) SVT (supraventricular tachycardia) Essential (primary) hypertension Overactive bladder History of primary malignant neoplasm of testis History of tobacco use History of kidney stones Skin tear HLD (hyperlipidemia) HTN (hypertension) Back pain Enlarged prostate Neuropathy Headache, migraine Edema GERD (gastroesophageal reflux disease) Johnson's esophagus Testicular cancer Prinzmetal angina Surgical History Hx of right inguinal hernia repair (07/25/19) History of inguinal hernia repair History of surgery History of cataract removal with insertion of prosthetic lens History of knee replacement (~2013) History of knee replacement (2009) Status post cholecystectomy (2004) History of carpal tunnel repair (1989) Family History Mother Heart disease Stroke Father Stroke Heart disease Brother Esophageal cancer Stomach cancer Social History household members: spouse Smoking Status: Former smoker alcohol intake: never substance use type: does not use Discharge Assessment & Plan Assessment and Plan Assessment: Improved Plan of Treatment: Discharge home Discharge Plan Discharge Plan Patient Disposition: Home Discharge orders & Medications Prescriptions: Continued omeprazole 40 MG capsule,delayed release(DR/EC) 40 mg PO DAILY Qty: 0 multivitamin Tablet 1 tab PO DAILY Qty: 0 aspirin 81 MG tablet,delayed release (DR/EC) 81 mg PO BEDTIME Qty: 0 rosuvastatin 20 mg Tablet 20 mg PO DAILY amitriptyline 25 mg Tablet 25 mg PO DAILY melatonin 5 mg Tablet 10 mg PO BEDTIME nitroglycerin 0.4 mg/hr patch 24 hour 0.4 mg topical DAILY diltiazem HCl 120 mg capsule,extended release 24hr 120 mg PO BEDTIME Patient Comments: take 1 capsule by mouth once daily coenzyme Q10 [Co Q-10] 100 mg Capsule 300 mg PO DAILY Fish Oil 340-1,000 mg Capsule 1 cap PO DAILY Qty: 0 cholecalciferol (vitamin D3) [Vitamin D3] 2,000 unit Tablet 2,000 unit PO DAILY Boswellia 500 MG 500 mg PO DAILY Chondroitin Sulfate 1,200 mg 1,200 mg PO DAILY Vitamin B-12 1 tab PO DAILY turmeric 1,000 MG 450 mg PO DAILY ibuprofen 200 mg tablet 800 mg PO Q6H PRN (Reason: pain) Qty: 60 0RF docusate sodium [Colace] 100 mg capsule 100 mg PO BID Qty: 30 0RF acetaminophen [Tylenol] 325 mg capsule 650 mg PO QID PRN (Reason: pain) Qty: 60 0RF duloxetine 20 mg capsule,delayed release(DR/EC) 20 mg PO DAILY galantamine 12 mg tablet 12 mg PO BEDTIME gabapentin 100 mg Capsule 100 mg PO BEDTIME polyethylene glycol 3350 [Miralax] 17 gram/dose Powder 17 g PO DAILY ranolazine 500 mg tablet extended release 12 hr 500 mg PO BID Gemtesa 75 mg tablet 75 mg PO DAILY Qty: 90 3RF Follow up/Referrals: Dionisio Anderson MD [Primary Care Provider] - 1 Week (Please call for appointment) Discharge Health Status Multidrug resistant organism: No MDRO Diet/Activity/Treatments Diet: Diet as Tolerated Diet comment: Increase his tolerated. Activity: As tolerated Skin/Wound/Dressing Care Report to your healthcare provider any signs of infection, such as:: chills, fever and increased pain Visit Report/Discharge Packet Stand Alone Forms: Patient Portal/API, Stroke Signs & Symptoms Discharge Data Primary Care Provider: Dionisio Anderson Attending Provider: Dionisio Anderson Admit Date/Time: 05/28/24 03:43 Quality VTE Deep Vein Thrombosis/Pulmonary Embolism Present on Admission: No
--- NOTE | 2024-05-29 09:27 | CM.DPC ---
Addendum entered by NOAM Graff 05/29/24 16:08: ADD: Return call from [facility] and they confirm they can accept, F2F and HH orders faxed for d/c hopefully tonight. BF Addendum entered by NOAM Graff 05/29/24 14:46: ADD: Per Rn, spouse has concerns with pt d/c home today. SW met bedside as SECURITIES SUPERVISOR transferred pt from bed to chair and pt had chronic orthostatics and 1PA. SW spoke at length with pt and spouse and pt OBS Status and would not qualify for MCR coverage at SNF and pt confirms he feels his symptoms are all chronic and not interested in SNF at this time. Pt and spouse would be agreeable with HH and provided HH Choice list and no preference so [facility] referral made based on vendor calendar. Provided Senior [facility] Guidebook and discussed LTC planning and they confirm they have LTC insurance and earmarked CG agency list and also Assisted Living facilities. Pt states he feels he would benefit from [facility] but spouse has not felt that would be needed. After discussing assist and levels at Assisted Living spouse now realizes what is available. Both pt and spouse feel they can safely get pt into the house and he has lift chair to get upstairs. Pt would like to d/c home today and spouse hopeful to remain overnight to work more with PT/OT and nursing staff for more ambulation before discharge home tomorrow. PT/OT orders placed and OT able to get pt to the BR but impulsive and had difficulty following commands but was able to ambulate. SW updated RN. F2F completed for HH. Patient d/c home today vs tomorrow. BF Original Note: DCP Discharge Home Per MD, pt feeling better today but not much of an appetite but labs normal and medically stable to discharge home today with outpt f/u and no identified discharge planning needs. Pt already established with Dr. Foster at [facility] and spouse can provide transport home today. No SW needs at this time. NOAM Graff
[2024-05-29] MEDS: RANOLAZINE 500 MG TAB.ER.12H PO (10:30)
[2024-05-29] MEDS: ENOXAPARIN 30 MG/0.3 ML SYRINGE SUBCUT (10:30)
[2024-05-29] MEDS: DULOXETINE 20 MG CAPSULE PO (10:30)
[2024-05-29 11:00] VITALS: BP 136/50; PULSE 83; RESP 16; TEMP 36.4; O2SAT 98
--- NOTE | 2024-05-29 14:19 | PT.IIE ---
Surgical History (Last Reviewed 05/28/24 @ 10:05 by Diallo De La Fuente MD) History of carpal tunnel repair (1989) History of cataract removal with insertion of prosthetic lens History of inguinal hernia repair History of knee replacement (2009) History of knee replacement (~2013) History of surgery Hx of right inguinal hernia repair (07/25/19) Status post cholecystectomy (2004) Medical History (Last Reviewed 05/28/24 @ 10:05 by Diallo De La Fuente MD) Back pain Johnson's esophagus Coronary artery disease Edema Enlarged prostate Essential (primary) hypertension GERD (gastroesophageal reflux disease) Headache, migraine History of kidney stones History of primary malignant neoplasm of testis History of tobacco use HLD (hyperlipidemia) HTN (hypertension) LAFB (left anterior fascicular block) Mixed hyperlipidemia Neuropathy Non-sustained ventricular tachycardia Overactive bladder Prinzmetal angina Skin tear SVT (supraventricular tachycardia) Testicular cancer Physical Therapy Inpatient Evaluation/Re-Eval M1 PT/OT-IP Prior Functional Status Start: 05/29/24 14:12 Freq: NEEDED Status: Active Protocol: Document 05/29/24 13:59 MB (Rec: 05/29/24 14:19 MB Desktop) Medical Review Prior Functional Status Medical History Reviewed Yes Communication Unsure baseline diet, pt is ELIM IRA Mobility and Gait Pt reports gait with SPC and history of falls and fall immediately before adm Activities of Daily Living and IADL's I with bathing and dressing, does not drive Social History Household Members spouse Living Arrangements House Number of Floors (Floors) Two Floors Number of Stairs To Enter/Railing? Chair lift No steps to enter Home Environment High Toilet,Walk in Shower Home Equipment Front Wheel Walker,Straight Cane Employment Status Retired Additional Social History Comment Adjustable bed M2 PT-IP Current Condition Start: 05/29/24 14:12 Freq: NEEDED Status: Active Protocol: Document 05/29/24 13:59 MB (Rec: 05/29/24 14:19 MB Desktop) Physical Therapy Current Condition Current Condition Evaluation Date 05/29/24 Treatment Diagnosis Norvirus, adm with vomiting M3 PT-IP Subjective Start: 05/29/24 14:12 Freq: NEEDED Status: Active Protocol: Document 05/29/24 13:59 MB (Rec: 05/29/24 14:19 MB Desktop) Subjective Physical Therapy Visit Type Type Initial Evaluation Visit Start Time 13:59 Visit Stop Time 14:12 Number of SEO MANAGER Visits 0 Physical Therapy Visit Comments Patient Comments Pt is agreeable to PT. Therapy Pain Assessment Pain When Pain Assessed At Rest Pain Present Pain Present Pain Reported Location All over Scale Used Not rated M4 PT-IP Mobility and Gait Start: 05/29/24 14:12 Freq: NEEDED Status: Active Protocol: Document 05/29/24 13:59 MB (Rec: 05/29/24 14:19 MB Desktop) PT-Bed Mobility Assessment Rolling Type of Rolling Roll to Left Level of Assist Contact Guard Assistance,1 Person Assistance Supine to Sit Supine to Sit Minimal Assistance,1 Person Assistance,Bedrails Scooting Scooting to Edge of Bed Minimal Assistance PT-Transfer Assessment Sit to and From Stand Sit to and from Stand Minimal Assistance Equipment Transfer Assistive Device Gait Belt,Front Wheeled Walker Orthotic/Prosthetic Devices or Brace: No Transfers Transfer Destination Chair Transfer Technique Ambulation Transfer Ability Level of Assist Minimal Assistance Gait Assessment Gait Gait Assistance Required: Minimum Assistance Distance (Feet) 3 Able to Maintain Weight Bearing Status Yes During Gait Assistive Devices Assistive Device Gait Belt,Front Wheeled Walker Orthotic/Prosthetic Devices or Brace: No Gait Deviations General Gait Pattern Antalgic,Decreased Stride Length,Decreased Feet Clearance,Flexed Trunk,Step-to Gait,Wide Based Gait Factors Limiting Gait Function Factors Limiting Gait Function Decreased Activity Tolerance, Decreased Strength,Difficulty Following Directions, Incoordination,Limited Range of Motion,Pain,Poor Balance, Poor Safety Awareness PT-Balance Assessment Sitting Balance and Reactions Static Sitting Balance Ability Fair Dynamic Sitting Balance Ability Poor Standing Balance and Reactions Static Standing Balance Ability Fair Dynamic Standing Balance Ability Poor Device Used RW M5 PT-IP Objective Assessments Start: 05/29/24 14:12 Freq: NEEDED Status: Active Protocol: Document 05/29/24 13:59 MB (Rec: 05/29/24 14:19 MB Desktop) Orientation Orientation/Cognition Level of Alertness Alert Orientation Name,Age,Birthday,Month,Year, Place,Situation Language Function Ability Hard of Hearing Safety Awareness Decreased Safety Awareness Memory Description No Deficits Noted Gross Range of Motion Upper Extremity ROM Impairments Defer to OT Lower Extremity ROM Assessment Bilaterally Impaired Impairments Limited B knee extension sitting EOB, limited AP, trouble following commands Strength Lower Extremity Strength Assessment Bilaterally Impaired Comments Strength Comments Cannot follow commands for MMT , limited functional strength Coordination Assessment Gross Coordination Gross Coordination Impaired Assessment Coordination Comments Cannot follow commands for formalized testing today Sensation Assessment Comments Sensation Comments Cannot follow commands today M7 PT-IP Assessment and Plan Start: 05/29/24 14:12 Freq: NEEDED Status: Active Protocol: Document 05/29/24 13:59 MB (Rec: 05/29/24 14:19 MB Desktop) PT Summary Assessment and Plan Potential Rehabilitation Potential Fair Status of Condition at Evaluation Evolving Summary Impairments Pain,ROM,Strength,Balance, Coordination,Bed Mobility, Transfers,Gait,Activity Tolerance Assessment Summary Pt is an 89 y/o male presenting with forward, flexed posture, decreased step -length and foot clearance, wide NAREN and shuffling step-to steps. He has poor safety awareness and delayed functional processing and has posterior LOB with sitting up requiring min A to prevent hitting head on back rail of bed. Pt reports falls at home. He currently requires overall min A for mobility and con't to be at high fall risk with bed mobility, transfers, gait and stepping. Goals Bed Mobility Goal Independent Transfer Goal Standby Assistance,Front Wheeled Walker Gait Goal Standby Assistance,Front Wheel Walker Gait Distance 75 Days to Meet Goals 5 Frequency of Treatment Frequency Of Treatment Once a Day Treatment Plan Physical Therapy Treatment Plan Bed Mobility Training,Transfer Training,Gait Training, Therapeutic Exercise,Balance Retraining,Discharge Planning, Hot or Cold Pack,Neuromuscular Re-ed,Coordination Retraining ,Manual Therapy Recommendations To Nursing Amount of Assist Needed 1 Person Assist Discharge Recommendations PT Discharge Recommendations Home with 24/ Assist Available,Home Health,Home vs SNF Transportation Needs at Discharge Private Vehicle - PT assist x1
--- NOTE | 2024-05-29 14:30 | OT.IP.EVAL ---
Past Medical History (Last Reviewed 05/28/24 @ 10:05 by Diallo De La Fuente MD) Back pain Johnson's esophagus Coronary artery disease Edema Enlarged prostate Essential (primary) hypertension GERD (gastroesophageal reflux disease) Headache, migraine History of kidney stones History of primary malignant neoplasm of testis History of tobacco use HLD (hyperlipidemia) HTN (hypertension) LAFB (left anterior fascicular block) Mixed hyperlipidemia Neuropathy Non-sustained ventricular tachycardia Overactive bladder Prinzmetal angina Skin tear SVT (supraventricular tachycardia) Testicular cancer Surgical History (Last Reviewed 05/28/24 @ 10:05 by Diallo De La Fuente MD) History of carpal tunnel repair (1989) History of cataract removal with insertion of prosthetic lens History of inguinal hernia repair History of knee replacement (2009) History of knee replacement (~2013) History of surgery Hx of right inguinal hernia repair (07/25/19) Status post cholecystectomy (2004) Occupational Therapy Inpatient Evaluation/Re-Eval M1 PT/OT-IP Prior Functional Status Start: 05/29/24 14:12 Freq: NEEDED Status: Active Protocol: Document 05/29/24 14:33 CGR (Rec: 05/29/24 14:49 CGR Desktop) Medical Review Prior Functional Status Medical History Reviewed Yes Communication Unsure baseline diet, pt is [place] Mobility and Gait Pt reports gait with SPC and history of falls and fall immediately before adm Activities of Daily Living and IADL's I with bathing and dressing, does not drive Social History Household Members spouse Living Arrangements House Number of Floors (Floors) Two Floors Number of Stairs To Enter/Railing? Chair lift No steps to enter Home Environment High Toilet,Walk in Shower Home Equipment Front Wheel Walker,Straight Cane Employment Status Retired Additional Social History Comment Adjustable bed M2 OT-IP Current Condition Start: 05/29/24 14:33 Freq: Status: Active Protocol: Document 05/29/24 14:33 CGR (Rec: 05/29/24 14:49 CGR Desktop) Occupational Therapy Current Condition Current Condition Evaluation Date 05/29/24 Treatment Diagnosis nausea and vomiting, norovirus Diagnosis Onset Date 05/28/24 M3 OT- IP Subjective and Pain Start: 05/29/24 14:33 Freq: Status: Active Protocol: Document 05/29/24 14:33 CGR (Rec: 05/29/24 14:49 CGR Desktop) OT- Subjective Occupational Therapy Visit Type Type Initial Evaluation Visit Start Time 14:01 Visit Stop Time 14:30 Notes Partial co-eval with P.T. OT Pain Assessment Pain When Pain Assessed At Rest Pain Present Pain Present Denied Pain M4 OT- IP ADL's Start: 05/29/24 14:33 Freq: Status: Active Protocol: Document 05/29/24 14:33 CGR (Rec: 05/29/24 14:49 CGR Desktop) OT [id number] Comments OT Self-Feeding Comments not meal time OT ADL-Grooming General Evaluation Grooming Ability Minimal Assistance Comments OT Grooming Comments assist for getting soap into hand for washing hands at sink OT ADL-Oral Care Comments Oral Care Comments not performed OT ADL-Dressing General Eval Lower Body Dressing Ability Moderate Assistance Areas Needing Assistance Underpants/Brief Comments OT Dressing Comments Pt states he typically can dress himself but he is not able to get his leg up to don the clean breif OT ADL-Toileting General Evaluation Toileting Ability Maximum Assistance Areas Needing Assistance Manage Clothing,Perform Perineal Hygiene Comments OT Toileting Comments Pt needs assist to pull down brief and to perform thorough back carlos care. Pt initially states that he is fine but when assisted was found to still have BM on his carlos area . OT ADL-Bathing Comments OT Bathing Comments not performed M5 OT- IP IADL's Start: 05/29/24 14:33 Freq: Status: Active Protocol: Document 05/29/24 14:33 CGR (Rec: 05/29/24 14:49 CGR Desktop) OT-Instrumental Activities of Daily Living Deficits IADL Deficits Identified Deficits Home Safety Awareness Awareness of Need for Assistance at Home Decreased Awareness Ability to Problem Solve Emergency Able to Problem Solve Situations Medication Management Medication Management Caregiver Administers Money Management Money Management Caregiver Provides Assistance Meal Preparation Meal Preparation Caregiver Provides Assist Analytics Specialist Analytics Specialist Caregiver Provides Assist Driving Driving Comments Pt states his does the driving. M6 OT- IP Functional Cognition Start: 05/29/24 14:33 Freq: Status: Active Protocol: Document 05/29/24 14:33 CGR (Rec: 05/29/24 14:49 CGR Desktop) Cognitive Factors Limiting Selfcare Function Cognitive Ability Level of Alertness Alert Patient Orientation Name,Age,Birthday,Month,Year, Place,Situation Attention Span Ability Capable of Focused Attention, Capable of Sustained Attention Cognitive Comments Cognitive Assessment Comments Pt needs extra time to process verbal commands and often needs things repeated. OT- Vision and Hearing OT- Hearing Assessment OT- Hearing Assessment Hearing Impaired,Use of Hearing Aids OT- Vision Assessment Visual Attentiveness WFL Occular Pursuits WFL Visual Convergence WFL M7 OT- IP Mobility and Balance Start: 05/29/24 14:33 Freq: Status: Active Protocol: Document 05/29/24 14:33 CGR (Rec: 05/29/24 14:49 CGR Desktop) OT- Bed Mobility Assessment Rolling Level of Assistance Contact Guard Assistance Supine to Sit Supine to Sit Assist Minimal Assistance Scooting Scooting to Edge of Bed Minimal Assistance OT-Transfer Assessment Sit to and From Stand Sit to and from Stand Minimal Assistance Transfers Transfer Ability Minimal Assistance Technique Transfer Destination Bed,Chair,Toilet Transfer Technique Stand Step Pivot Devices Transfer Assistive Devices Gait Belt,Front Wheeled Walker Comments Mobility Comments mobility around the room with wide base of support and small steps making for a waddling type motion with mobility. OT- Gait Assessment Gait Gait Assistance Required: Minimum Assistance Assistive Devices Assistive Device Gait Belt,Front Wheeled Walker Comments Gait Ability Comments mobility around the room with wide base of support and small steps making for a waddling type motion with mobility. Pt is not use to using a walker and needs VC to keep the walker closer to his body and to bring it with him when he turns. OT- Balance Assessment Sitting Balance and Reactions Static Sitting Balance Ability Good Dynamic Sitting Balance Ability Good M8 OT- IP Objective Assessments Start: 05/29/24 14:33 Freq: Status: Active Protocol: Document 05/29/24 14:33 CGR (Rec: 05/29/24 14:49 CGR Desktop) OT Gross Range of Motion Upper Extremity Range of Motion Assessment Within Functional Limits OT Strength Upper Extremity Strength Assessment Within Functional Limits Comments Strength Comments not formally tested OT- Coordination Assessment Upper Extremity Finger to Nose Test Within Functional Limits Finger Tapping Test Within Functional Limits OT-Muscle Tone Assessment Muscle Tone WNL Yes OT Sensation Assessment Edema Edema Absent M9 OT- IP Assessment and Plan Start: 05/29/24 14:33 Freq: Status: Active Protocol: Document 05/29/24 14:33 CGR (Rec: 05/29/24 14:49 CGR Desktop) OT Summary Assessment and Plan Potential Rehabilitation Potential Good Analytic Complexity at Evaluation Moderate Summary OT Impairments Balance,Functional Cognition, Functional Mobility,Grooming, Dressing,Toileting,Bathing, Toilet Transfers,Shower Transfers,Activity Tolerance Progress Towards Goals Progressing Toward Goals Assessment Summary Pt presents as a moderate complexity evaluation s/p admit for nausea and vomiting. Pt appears weak with abnormal gait pattern and poor safety awareness. Pt needs extra time to respond to verbal cues. Pt needed assist today with ADLs but states that typically he is able to perform IND. Pt will benefit from SNF but declines SNF. Recommend d/c with home health. Goals Grooming Goal Independent Dressing Goal Independent Toileting Goal Independent Bathing Goal Independent Toilet Transfer Goal Independent Shower Transfer Goal Independent Days to Meet Goals 10 Frequency of Treatment Other frequency 5x per week Treatment Plan OT Treatment Plan ADL Training,Functional Cognition Training,Functional Mobility,Patient/Family Education,Discharge Planning Other Treatment Recommendations and Next SLUMS, mobility, shower, LB Treatment Focus dressing with DME Discharge Recommendations OT Discharge Recommendations Home Health Transportation Needs at Discharge Private Vehicle
== END 2024-05-29 17:10 | disposition home or self-care (01) ==
LOC: ED 05-28 03:27 → AC 05-28 03:44
PROVIDERS: Admitting Provider Internal Medicine; Emergency Provider Emergency Medicine; Family Provider Family Medicine; PCP Family Medicine; Referring Provider Emergency Medicine; Visit Provider Family Medicine
DX: A08.11 Acute gastroenteropathy due to Norwalk agent (principal); E86.0 Dehydration; R53.1 Weakness; I10 Essential (primary) hypertension; E78.5 Hyperlipidemia, unspecified; R00.0 Tachycardia, unspecified; I25.10 Atherosclerotic heart disease of native coronary artery without angina pectoris; G62.9 Polyneuropathy, unspecified; Z87.891 Personal history of nicotine dependence; Z79.82 Long term (current) use of aspirin; Z66 Do not resuscitate
CPT/HCPCS: 36415; 74177; 80053; 83605; 83690; 83880; 84145; 85025; 87040; 87507; 93005; 96361; 96372; 96374; 96375; 97162; 97166; 97535; 99223; 99284; G0378; J1200; J1650; J2060; J2405; Q9967

== ENCOUNTER → 2024-06-02 10:23 | Outpatient (CLI) | payer MEDICARE, BC, SELFPAY ==
[2024-05-28 04:37] VITALS: BMI 33.7
--- NOTE | 2024-06-02 10:27 | DI.RAD.S_ITS ---
PROCEDURE: XR LUMBAR SPINE MIN 4V INDICATIONS: BACK PAIN TECHNIQUE: 5 views of the lumbar spine were acquired, including bilateral oblique views. COMPARISON: None. FINDINGS: Bones: 5 nonrib-bearing vertebrae are present. Trace levoconvex curvature. Grade 1 retrolisthesis at L1-2, L2-3, and L3-4. Grade 1 anterolisthesis at L4-5.. No vertebral body compression fractures. No suspicious bony lesions. Multilevel disc space narrowing and degenerative endplate changes. Multilevel facet hypertrophy. Soft tissues: Overlying bowel gas pattern is normal. Aortic atherosclerotic calcifications. Right upper quadrant surgical clips. Oblique images: No pars defects. IMPRESSION: 1. No acute osseous abnormality. If symptoms persist or if there is continued clinical concern, cross-sectional imaging such as MRI or CT may be helpful for further evaluation. 2. Moderate to severe multilevel spondylosis and degenerative spondylolisthesis. Approved by: Remington Soto M.D. on 06/02/2024 at 12:17
[2024-06-02 12:17] LABS: Hematocrit 35.6 % (41-53); Hemoglobin 12.1 g/dL (13.5-17.5); Mean Corpuscular HGB Conc 33.9 % (30-36); Mean Corpuscular Hemoglobin 31.1 PG (26-34); Mean Corpuscular Volume 91.9 fL (80-100); Platelet Count 219 X10^3/uL (150-400); Red Blood Cell Count 3.88 X10^6/uL (4.5-5.9); Red Cell Distribution Width 15.1 % (11.6-14.8)
[2024-06-02 12:36] LABS: Alanine Aminotransferase 103 IU/L (<50); Albumin 4.3 g/dL (3.5-5.0); Alkaline Phosphatase 88 U/L (38-126); Aspartate Aminotransferase 111 IU/L (17-59); BUN Creatinine Ratio 12.5 (6-22); Bilirubin Total 0.5 mg/dL (0.2-1.3); Blood Urea Nitrogen 17 mg/dL (9-20); Calcium 9.3 mg/dL (8.4-10.2); Carbon Dioxide 24 mmol/L (22-32); Chloride 109 mmol/L (98-107); Cholesterol 126 mg/dL (140-199); Estimated Glomerular Filt Rate 50 mL/min (>60); Globulin 2.2 g/dL (1.7-4.1); Glucose 104 mg/dL (80-110); HDL Cholesterol 34 mg/dL (40-60); HEMOLYSIS < 15 (0-50); LDL Cholesterol Calculated 62 mg/dL (<100); Potassium 3.9 mmol/L (3.4-5.1); Sodium 143 mmol/L (137-145); Total Protein 6.5 g/dL (6.3-8.2); Triglycerides 148 mg/dL (35-150)
== END ==
PROVIDERS: Family Provider Family Medicine; PCP Family Medicine; Referring Provider Nurse Practitioner; Visit Provider Nurse Practitioner
DX: M43.16 Spondylolisthesis, lumbar region (principal); M54.9 Dorsalgia, unspecified; M47.816 Spondylosis without myelopathy or radiculopathy, lumbar region; E78.5 Hyperlipidemia, unspecified; I10 Essential (primary) hypertension
CPT/HCPCS: 36415; 72110; 80053; 80061; 85027

== ENCOUNTER 2024-06-13 13:41 | Outpatient (CLI) | payer MEDICARE, BC, SELFPAY ==
[2024-05-28 04:37] VITALS: BMI 33.7
[2024-06-13] VITALS (7 sets, daily range): BP systolic 125–147; BP diastolic 58–74; PULSE 66–77; RESP 14–16; TEMP 36.4; O2SAT 95–99
[2024-06-13] MEDS: MIDAZOLAM 2 MG/2 ML VIAL 1 MG IV (15:02)
[2024-06-13] MEDS: iopamidoL 15 ML VIAL 3 ML INJ (15:08)
[2024-06-13] MEDS: BETAMETHASONE 30 MG/5 ML MDV 12 MG INJ (15:08)
[2024-06-13] MEDS: DEXAMETHASONE 10 MG/ML VIAL INJ (15:08)
[2024-06-13] MEDS: BUPIVACAINE 0.25% (PF) VIAL 2 ML INJ (15:09)
--- NOTE | 2024-06-13 15:22 | P.PCN_ITS ---
Date/Time/Diagnoses Date of procedure: 06/13/24 Time of procedure: 15:22 Pre-procedure diagnosis: 1. HNP WITH RADICULAR FEATURES, 2. MULTILEVEL CENTRAL STENOSIS, Post-procedure diagnosis: same Procedure Notes Procedure: 1. FLUOROSCOPICALLY GUIDED CONTRAST CONTROLLED INTERLAMINAR EPIDURAL STEROID INJECTION - L5/S1 Indications: Diallo is referred by Dr. Parada for treatment of Bilateral Foraminal Stenosis L>R LE symptoms. Physician: Dionisio Irwin Total Fluoroscopy time (seconds): 9 Total sedation minutes: 10 Complications: none Procedure in detail & Post-procedure care: FINDINGS Multilevel Central Spinal Stenosis with Nerve Root Compression DESCRIPTION OF PROCEDURE Fluoroscopically guided, contrast-controlled L5/S1 translaminar epidural steroid injection. Following review of allergy and review of potential side effects and complications, including, but not necessarily limited to, infection, allergic reaction, local tissue breakdown, temporary as well as permanent nerve injury, paralysis, stroke and possible , the patient indicated that the patient understood and agreed to proceed. An informed consent document was signed by the patient, witnessed by a nurse, and placed in the patient's chart. Additionally, other treatment options including modalities, medications, and physical therapy were reviewed with the patient. After review of previous anaesthesic history and IV conscious sedation the patient was deemed safe to proceed with today?s procedure with IV conscious sedation as ASA class II designation. Safety time-out was performed to confirm p atient ID, procedure to be performed and site of procedure. IV sedation was accomplished with a combination of 1mg of Versed administered by the RN after DO order, titrated to patient comfort during the course of the procedure while the patient remained responsive to all verbal commands. In the prone position, following sterile prep and drape of the lumbar region, the L5/S1 translaminar space was identified fluoroscopically. The skin was anesthetized via a 25-gauge, 1.5-inch needle with 1% lidocaine solution. At this point, a 22-gauge short bevel spinal needle was atraumatically introduced and advanced under fluoroscopic guidance into the region of the L5/S1 translaminar space. Depth was confirmed on lateral view. Radiological data, including multiple fluoroscopic views of the lumbar spine, reveal a spinal needle at the L5/S1 translaminar space. Lateral views then show placement of the needle in the epidural space. Subsequent views show contrast material flowing superiorly and inferiorly in the epidural space. No vascular or intrathecal uptake is observed. At this point, using loss of resistance technique with saline and air, the epidural space was entered. This was confirmed following negative aspiration with injection of approximately 1.5cc of Isovue 200, showing excellent epidural flow without vascular or intrathecal uptake. At this point, 1 cc of 1% lidocaine solution combined with 2cc or 10mg of dexamethasone and 6mg of betamethasone was injected without incident. The patent tolerated the procedure without signs of symptoms of complications prior to transfer to the recovery area for further monitoring. The patient was then transferred to the recovery area where they were observed for an appropriate period of time after the injection. The patient reported a VAS score of 6 prior to the procedure and a post-procedure VAS of 0. POST OP INSTRUCTIONS The patient was provided a Pain Log to continue to record their response to the target-specific procedure prior to follow-up visit with their referring physician. Additionally, specific post-injection care instructions and a contact number to our office were provided if concerns arise regarding possible complications associated with the procedure are suspected.
== END 2024-06-13 15:32 | disposition home or self-care (01) ==
PROVIDERS: Family Provider Family Medicine; PCP Family Medicine; Referring Provider Physical Medicine & Rehabilitation; Visit Provider Physical Medicine & Rehabilitation
DX: M51.17 Intervertebral disc disorders with radiculopathy, lumbosacral region (principal); M48.07 Spinal stenosis, lumbosacral region
CPT/HCPCS: 62323; 99152; J0702; J1100; J2250; J3490

== ENCOUNTER → 2024-06-14 11:22 | Outpatient (CLI) | payer MEDICARE, BC, SELFPAY ==
[2024-05-28 04:37] VITALS: BMI 33.7
[2024-06-14 12:38] LABS: Alanine Aminotransferase 33 IU/L (<50); Albumin 4.5 g/dL (3.5-5.0); Albumin Globulin Ratio 1.9 (1.0-2.8); Alkaline Phosphatase 91 U/L (38-126); Aspartate Aminotransferase 30 IU/L (17-59); BUN Creatinine Ratio 18.4 (6-22); Bilirubin Total 0.5 mg/dL (0.2-1.3); Blood Urea Nitrogen 26 mg/dL (9-20); Calcium 9.7 mg/dL (8.4-10.2); Carbon Dioxide 20 mmol/L (22-32); Chloride 107 mmol/L (98-107); Estimated Glomerular Filt Rate 48 mL/min (>60); Globulin 2.4 g/dL (1.7-4.1); Glucose 122 mg/dL (70-99); HEMOLYSIS < 15 (0-50); Potassium 4.4 mmol/L (3.4-5.1); Sodium 140 mmol/L (137-145); Total Protein 6.9 g/dL (6.3-8.2)
[2024-06-15 15:14] LABS: Hepatitis B Surface Antigen NEGATIVE s/c (NEGATIVE)
[2024-06-15 15:32] LABS: Hep C Virus Ab w/Reflex Quant NEGATIVE s/c (NEGATIVE)
== END ==
PROVIDERS: Family Provider Family Medicine; PCP Family Medicine; Referring Provider Nurse Practitioner; Visit Provider Nurse Practitioner
DX: R79.89 Other specified abnormal findings of blood chemistry (principal); I10 Essential (primary) hypertension
CPT/HCPCS: 36415; 80053; 86803; 87340

== ENCOUNTER 2024-07-10 00:06 | Emergency (ER) | payer MEDICARE, BC, SELFPAY ==
[2024-05-28 04:37] VITALS: BMI 33.7
[2024-07-10 00:12] VITALS: BP 163/81; PULSE 98; RESP 20; TEMP 36.7; O2SAT 96; BMI 33.4
--- NOTE | 2024-07-10 00:58 | ED.WOUNDLAC ---
HPI - Wound/Laceration General Chief Complaint: Wound/Laceration Stated Complaint: Fell/ Bleeding from head. Time Seen by Provider: 07/10/24 00:42 Source: patient Mode of arrival: Ambulatory History of Present Illness HPI narrative: Patient is an 89-year-old male who does fall frequently as neuropathy presents today with a ground level fall. Reports that he stood up from a sitting position did not feel quite on balance started stumbling 1 direction could not catch his balance and fell into a wall. He has a laceration what his left eye. He does take aspirin daily but no other blood thinners. He was like he is ambulating normally now. He has no significant headache. No other injury he walks with a cane normally. No visual changes. Not uncommon for him to fall. 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 Related Data Home Medications Medication Instructions Recorded Confirmed omeprazole 40 mg capsule,delayed 40 mg PO DAILY ##0 06/24/11 06/05/24 release aspirin 81 mg tablet,delayed 81 mg PO BEDTIME ##0 01/21/12 06/05/24 release multivitamin 1 tab PO DAILY ##0 01/21/12 06/05/24 Boswellia 500 mg PO DAILY 03/30/19 06/05/24 Chondroitin Sulfate 1,200 mg PO DAILY 03/30/19 06/05/24 Vitamin B-12 1 tab PO DAILY 03/30/19 06/05/24 cholecalciferol (vitamin D3) 50 2,000 unit PO DAILY 03/30/19 06/05/24 mcg (2,000 unit) tablet (Vitamin D3) coenzyme Q10 100 mg capsule (Co 300 mg PO DAILY 03/30/19 06/05/24 Q-10) nitroglycerin 0.4 mg/hr 0.4 mg topical DAILY 03/30/19 06/05/24 transdermal 24 hour patch omega-3 fatty acids-fish oil 340 1 cap PO DAILY ##0 03/30/19 06/05/24 mg-1,000 mg capsule (Fish Oil) turmeric 450 mg PO DAILY 03/30/19 06/05/24 amitriptyline 25 mg tablet 25 mg PO DAILY 06/02/21 06/05/24 melatonin 5 mg tablet 10 mg PO BEDTIME 06/02/21 06/05/24 rosuvastatin 20 mg tablet 20 mg PO DAILY 06/02/21 06/05/24 duloxetine 20 mg capsule,delayed 20 mg PO DAILY 05/28/24 06/05/24 release gabapentin 100 mg capsule 100 mg PO BEDTIME 05/28/24 06/05/24 galantamine 12 mg tablet 12 mg PO BEDTIME 05/28/24 06/05/24 polyethylene glycol 3350 17 17 g PO DAILY 05/28/24 06/05/24 gram/dose oral powder (Miralax) ranolazine 500 mg tablet,extended 500 mg PO BID 05/28/24 06/05/24 release,12 hr betamethasone valerate 0.1 % applic topical DAILY 06/05/24 06/05/24 topical cream diltiazem HCl 120 mg 120 mg PO DAILY 06/05/24 06/05/24 capsule,extended release 24 hr, controlled ketoconazole 2 % topical cream 1 applic topical 06/05/24 06/05/24 Previous Rx's Medication Instructions Recorded acetaminophen 325 mg capsule 650 mg (2 x 325 mg) PO QID PRN 07/25/19 (Tylenol) pain #60 caps docusate sodium 100 mg capsule 100 mg PO BID #30 caps 07/25/19 (Colace) ibuprofen 200 mg tablet 800 mg (4 x 200 mg) PO Q6H PRN 07/25/19 pain #60 tabs vibegron 75 mg tablet (Gemtesa) 75 mg PO DAILY #90 tabs 03/27/24 Allergies Allergy/AdvReac Type Severity Reaction Status Date / Time simethicone Allergy Mild Diarrhea Verified 06/05/24 13:56 oxycodone [OXYCODONE] AdvReac Mild COMITING, Verified 06/05/24 13:56 HALLUCINATIONS Patient History Medical History Back pain Johnson's esophagus Coronary artery disease Edema Enlarged prostate Essential (primary) hypertension GERD (gastroesophageal reflux disease) Headache, migraine Herniated nucleus pulposus, lumbar History of kidney stones History of primary malignant neoplasm of testis History of tobacco use HLD (hyperlipidemia) HTN (hypertension) LAFB (left anterior fascicular block) Mixed hyperlipidemia Neuropathy Non-sustained ventricular tachycardia Overactive bladder Prinzmetal angina Sensory peripheral neuropathy Skin tear Spinal stenosis, lumbar region with neurogenic claudication SVT (supraventricular tachycardia) Testicular cancer Surgical History History of carpal tunnel repair (1989) History of cataract removal with insertion of prosthetic lens History of inguinal hernia repair History of knee replacement (2009) History of knee replacement (~2013) History of surgery Hx of right inguinal hernia repair (07/25/19) Status post cholecystectomy (2004) Family History Mother Heart disease Stroke Father Stroke Heart disease Brother Esophageal cancer Stomach cancer Social History household members: spouse Smoking Status: Never smoker alcohol intake: never substance use type: does not use Smoking Status: Never smoker alcohol intake frequency: 0-2 drinks per day Exam Initial Vital Signs Initial Vital Signs: Vital Signs Temperature 98.1 F 07/10/24 00:12 Pulse Rate 98 H 07/10/24 00:12 Respiratory Rate 20 07/10/24 00:12 Blood Pressure 163/81 H 07/10/24 00:12 Pulse Oximetry 96 07/10/24 00:12 Oxygen Delivery Method Room Air 07/10/24 00:12 GENERAL: Alert hard of hearing pleasant 89-year-old male and in no acute distress. HEENT: Head atraumatic, laceration above left eye EOMI, pupils reactive, face symmetric, moist mucous membranes NECK: Supple no vertebral tenderness CARDIOVASCULAR: Regular rate and rhythm without murmurs, rubs or gallops. RESPIRATORY: Breath sounds equal bilaterally, no wheezes rales or rhonchi. ABDOMEN: Soft, nontender. Normoactive bowel sounds all 4 quadrants. No guarding or rebound. EXTREMITIES: Normal range of motion, no clubbing or edema. Neurovascularly intact NEUROLOGICAL: Alert and oriented x4.Normal gait and speech. Cranial nerves II through XII grossly intact. [employer] strength equal bilaterally SKIN: 3 cm laceration above left eye vertical laceration through eyebrow Procedures Laceration Repair Laceration 1: Site: face (left eye brow) Side (If applicable): left Size (cm): 3 Description: linear Depth: simple, single layer Local Anesthetic: lidocaine 1% Amount of anesthesia used (mL): 3 Pre-repair: wound explored, irrigated extensively and deep structures intact Skin layer closed with: nylon Skin layer suture size: 4-0 Number of sutures: 3 Technique: simple, interrupted Course Vital Signs Vital signs: Vital Signs - 8 hr 07/10/24 00:12 07/10/24 01:27 Temperature 98.1 F Pulse Rate 98 H 94 H Respiratory Rate 20 20 Blood Pressure 163/81 H 158/82 H Pulse Oximetry 96 94 Oxygen Delivery Method Room Air Room Air MDM - Wound/Laceration MDM Narrative Medical decision making narrative: Patient is a 89-year-old male history of frequent falls presents today as a mechanical fall. It stood up was immediately unbalanced and stumbled into the walk. No loss of consciousness no nausea or vomiting no neurologic deficits. Now ambulating fine. Does take aspirin daily. At this time I do not think he needs a head CT he did have a laceration above left eyebrow which was easily repaired with 3 sutures Discharge Plan Departure Patient Disposition: Home Clinical Impression: Laceration Instructions: DI for Laceration Repair Activity Restrictions/Additional Instructions: *You have been diagnosed with laceration left brow *What to do: At this time keep area clean and dry with soap and water. Apply antibiotic ointment 1 to 2 times a day. Have sutures removed in about 5-7 days. No swimming or soaking in water *Continue to take medications as directed Tylenol as needed for pain *Follow up with your primary care provider in 2-3 days or call [phone] *Return to ER if you should have increasing redness swelling pain, worsening confusion falls nausea vomiting or any new, worsening or concerning symptoms Prescriptions: No Action omeprazole 40 MG capsule,delayed release(DR/EC) 40 mg PO DAILY Qty: 0 multivitamin Tablet 1 tab PO DAILY Qty: 0 aspirin 81 MG tablet,delayed release (DR/EC) 81 mg PO BEDTIME Qty: 0 rosuvastatin 20 mg Tablet 20 mg PO DAILY amitriptyline 25 mg Tablet 25 mg PO DAILY melatonin 5 mg Tablet 10 mg PO BEDTIME nitroglycerin 0.4 mg/hr patch 24 hour 0.4 mg topical DAILY coenzyme Q10 [Co Q-10] 100 mg Capsule 300 mg PO DAILY Fish Oil 340-1,000 mg Capsule 1 cap PO DAILY Qty: 0 cholecalciferol (vitamin D3) [Vitamin D3] 2,000 unit Tablet 2,000 unit PO DAILY Boswellia 500 MG 500 mg PO DAILY Chondroitin Sulfate 1,200 mg 1,200 mg PO DAILY Vitamin B-12 1 tab PO DAILY turmeric 1,000 MG 450 mg PO DAILY ibuprofen 200 mg tablet 800 mg PO Q6H PRN (Reason: pain) Qty: 60 0RF docusate sodium [Colace] 100 mg capsule 100 mg PO BID Qty: 30 0RF acetaminophen [Tylenol] 325 mg capsule 650 mg PO QID PRN (Reason: pain) Qty: 60 0RF duloxetine 20 mg capsule,delayed release(DR/EC) 20 mg PO DAILY galantamine 12 mg tablet 12 mg PO BEDTIME gabapentin 100 mg Capsule 100 mg PO BEDTIME polyethylene glycol 3350 [Miralax] 17 gram/dose Powder 17 g PO DAILY ranolazine 500 mg tablet extended release 12 hr 500 mg PO BID ketoconazole 2 % cream 1 applic topical betamethasone valerate 0.1 % cream topical DAILY diltiazem HCl 120 mg capsule,ext.rel 24h degradable 120 mg PO DAILY Gemtesa 75 mg tablet 75 mg PO DAILY Qty: 90 3RF Referrals: Dionisio Anderson MD [Primary Care Provider] - Stand Alone Forms: Patient Portal/API/Survey
[2024-07-10 01:27] VITALS: BP 158/82; PULSE 94; RESP 20; O2SAT 94
== END 2024-07-10 01:28 | disposition home or self-care (01) ==
PROVIDERS: Emergency Provider Emergency Medicine; Family Provider Family Medicine; PCP Family Medicine
DX: S01.112A Laceration without foreign body of left eyelid and periocular area, initial encounter (principal); W18.30XA Fall on same level, unspecified, initial encounter
CPT/HCPCS: 12013; 36415; 80053; 86803; 87340; 99283

== ENCOUNTER → 2024-07-10 12:01 | Outpatient (CLI) | payer MEDICARE, BC, SELFPAY ==
[2024-05-28 04:37] VITALS: BMI 33.7
[2024-07-10 12:55] LABS: Alanine Aminotransferase 19 IU/L (<50); Albumin 4.1 g/dL (3.5-5.0); Albumin Globulin Ratio 1.8 (1.0-2.8); Alkaline Phosphatase 86 U/L (38-126); Aspartate Aminotransferase 23 IU/L (17-59); BUN Creatinine Ratio 11.2 (6-22); Bilirubin Total 0.5 mg/dL (0.2-1.3); Blood Urea Nitrogen 16 mg/dL (9-20); Calcium 9.4 mg/dL (8.4-10.2); Carbon Dioxide 24 mmol/L (22-32); Chloride 107 mmol/L (98-107); Estimated Glomerular Filt Rate 47 mL/min (>60); Globulin 2.3 g/dL (1.7-4.1); Glucose 113 mg/dL (70-99); HEMOLYSIS < 15 (0-50); Potassium 4.2 mmol/L (3.4-5.1); Sodium 140 mmol/L (137-145); Total Protein 6.4 g/dL (6.3-8.2)
[2024-07-12 19:45] LABS: Hep C Virus Ab w/Reflex Quant NEGATIVE s/c (NEGATIVE); Hepatitis B Surface Antigen NEGATIVE s/c (NEGATIVE)
== END ==
PROVIDERS: Family Provider Family Medicine; PCP Family Medicine; Referring Provider Family Medicine; Visit Provider Nurse Practitioner
DX: R79.89 Other specified abnormal findings of blood chemistry (principal); I10 Essential (primary) hypertension; R94.5 Abnormal results of liver function studies
CPT/HCPCS: 36415; 80053; 86803; 87340

== ENCOUNTER → 2024-07-11 08:54 | Outpatient (CLI) | payer MEDICARE, BC, SELFPAY ==
[2024-05-28 04:37] VITALS: BMI 33.7
--- NOTE | 2024-07-11 08:55 | DI.ECHO.S_ITS ---
[facility] : : [id number] [address] : : [id number] : : Phone: [phone] Echocardiogram Report + + :Name: RONDA MILLER Study Date: 07/11/2024 Height: 68 in : :[facility] ReadingLocation: Weight: 220 lb : : Gender: Male BSA: 2.1 m2 : :: 1935 Age: 89 yrs BP: 120/65 mmHg: :Reason For Study: ESSENTIAL HYPERTENSION : :Ordering Physician: MAK, : :KAMILAH Sullivan Performed By: Janna Cerda : :Referring: KAMILAH CORADO W : + + Interpretation Summary The left ventricle is normal in size. The left ventricular ejection fraction is normal. The ejection fraction is estimated to be 55-60%. The right ventricle is normal in size and function. There is mild to moderate tricuspid regurgitation. Compared to the prior echo exam, there has been no change in TR severity. The right ventricular systolic pressure is estimated to be at least 36 mmHg based on an estimated right atrial pressure of 3 mm Hg. Previously, 34 mmHg. The ascending aorta is mildly enlarged. 3.9 cm in diameter. Previously 3.8. Procedure: A two-dimensional transthoracic echocardiogram with color flow and Doppler was performed. The study quality was technically adequate. Comparison is made with the echocardiogram of 04/11/2018. The patient was in sinus rhythm with heart rates between 68-75 bpm during the exam. The patient had a bundle branch block rhythm during the exam. Left Ventricle: The left ventricle is normal in size. Proximal septal thickening is noted. There is no echo evidence for significant left ventricular outflow tract obstruction. There is no thrombus. The ejection fraction is estimated to be 55-60%. The left ventricular ejection fraction is normal. Septal motion is consistent with conduction abnormality. Diastolic parameters suggest a relaxation abnormality of the left ventricle, consistent with probable normal filling pressures. Right Ventricle: The right ventricle is normal in size and function. Atria: The left atrial size is normal. The left atrium has mildly decreased in size since the prior echo exam. Right atrial size is normal. There is no Doppler evidence for an interatrial shunt. Mitral Valve: The mitral valve leaflets appear to open well. The mitral valve leaflets are slightly calcified. There is mild mitral annular calcification. There is no mitral valve stenosis. There is trace mitral regurgitation. Aortic Valve: The aortic valve is trileaflet. The aortic valve opens well. There is no aortic valve stenosis. There is trace aortic regurgitation. Tricuspid Valve: The tricuspid valve leaflets are thin and pliable. There is mild to moderate tricuspid regurgitation. The right ventricular systolic pressure is estimated to be at least 36 mmHg based on an estimated right atrial pressure of 3 mm Hg. Compared to the prior echo exam, there has been no change in TR severity. Pulmonic Valve: The pulmonic valve leaflets are thin and pliable; valve motion is normal. There is no pulmonic valvular regurgitation. Great Vessels: The aortic root is normal size. The ascending aorta is mildly enlarged. Linear artifact in aortic arch. The IVC is of normal diameter and collapses greater than 50% with a sniff. This suggests a low right atrial pressure of 3 mm Hg. Pericardium/ Pleura There is no pericardial effusion. There is no pleural effusion. MMode/2D Measurements & Calculations LVIDd: 5.2 cm LVOT diam: 2.4 cm LVIDs: 3.0 cm Ao root diam: 3.8 cm FS: 42.0 % asc Aorta Diam: 3.9 cm IVSd: 1.1 cm Ao Arch Diam (Prox Trans): 3.8 cm LVPWd: 1.1 cm LV zhao. diameter/BSA (cm/m^2): 2.5 LV sys. diameter/BSA (cm/m^2): 1.4 LA A2 area: 20.3 cm2 RA long axis: 4.9 cm LA A4 area: 15.6 cm2 RA area: 14.0 cm2 LA length (vol): 5.3 cm RA vol: 33.5 ml LA vol: 51.0 ml RA : 15.7 ml/m2 LA vol index: 24.0 ml/m2 IVC diam: 1.6 cm RVD1 (basal): 3.3 cm TAPSE: 2.1 cm Doppler Measurements & Calculations Ao V2 max: 172.8 cm/sec LVOT Max Kavon: 92.9 cm/sec Ao V2 mean: 117.7 cm/sec LV V1 max P.5 mmHg Ao max P.9 mmHg LV V1 VTI: 19.1 cm Ao mean P.3 mmHg SD(I,D): 2.5 cm2 Ao V2 VTI: 34.7 cm SD(V,D): 2.5 cm2 sev ratio: 0.55 SD indexed to BSA (cm^2/m^2): 1.2 MV E max kavon: 76.7 cm/sec TR max kavon: 288.1 cm/sec MV A max kavon: 101.3 cm/sec TR max P.2 mmHg MV E/A: 0.76 PA V2 max: 108.4 cm/sec Med Peak E' Kavon: 7.3 cm/sec PA V2 mean: 76.4 cm/sec E/E' med: 10.5 PA mean P.6 mmHg Lat Peak E' Kavon: 7.8 cm/sec PA pr(Accel): 38.8 mmHg E/E' lat: 9.8 E/e' average: 10.1 MV dec time: 0.17 sec MVA(VTI): 2.4 cm2 MV V2 mean: 69.1 cm/sec SV(LVOT): 87.1 ml MV mean P.1 mmHg MV V2 VTI: 35.8 cm Reading Physician:04:25 PM
== END ==
LOC: ECHO 08:55
PROVIDERS: Family Provider Family Medicine; PCP Family Medicine; Referring Provider Nurse Practitioner; Visit Provider Nurse Practitioner
DX: I10 Essential (primary) hypertension (principal); I07.1 Rheumatic tricuspid insufficiency; I51.7 Cardiomegaly
CPT/HCPCS: 93306

== ENCOUNTER → 2024-08-18 11:00 | Outpatient (CLI) | payer MEDICARE, BC, SELFPAY ==
[2024-05-28 04:37] VITALS: BMI 33.7
[2024-08-18 12:52] LABS: BUN Creatinine Ratio 14.5 (6-22); Blood Urea Nitrogen 20 mg/dL (9-20); Calcium 9.3 mg/dL (8.4-10.2); Carbon Dioxide 25 mmol/L (22-32); Chloride 106 mmol/L (98-107); Estimated Glomerular Filt Rate 49 mL/min (>60); Glucose 105 mg/dL (70-99); HEMOLYSIS < 15 (0-50); Potassium 4.4 mmol/L (3.4-5.1); Sodium 140 mmol/L (137-145)
== END ==
PROVIDERS: Family Provider Family Medicine; PCP Family Medicine; Referring Provider Nurse Practitioner; Visit Provider Nurse Practitioner
DX: N28.9 Disorder of kidney and ureter, unspecified (principal)
CPT/HCPCS: 36415; 80048

== ENCOUNTER → 2024-11-03 12:33 | Outpatient (CLI) | payer MEDICARE, BC, SELFPAY ==
[2024-05-28 04:37] VITALS: BMI 33.7
[2024-11-03 13:32] LABS: Alanine Aminotransferase 19 IU/L (<50); Albumin 4.6 g/dL (3.5-5.0); Albumin Globulin Ratio 1.8 (1.0-2.8); Alkaline Phosphatase 79 U/L (38-126); Blood Urea Nitrogen 20 mg/dL (9-20); Calcium 9.4 mg/dL (8.4-10.2); Carbon Dioxide 26 mmol/L (22-32); Chloride 106 mmol/L (98-107); Estimated Glomerular Filt Rate 44 mL/min (>60); Globulin 2.5 g/dL (1.7-4.1); Glucose 102 mg/dL (70-99); HEMOLYSIS < 15 (0-50); Potassium 4.6 mmol/L (3.4-5.1); Sodium 143 mmol/L (137-145); Total Protein 7.1 g/dL (6.3-8.2)
== END ==
PROVIDERS: Family Provider Family Medicine; PCP Family Medicine; Referring Provider Physician Assistant; Visit Provider Physician Assistant
DX: E78.5 Hyperlipidemia, unspecified (principal); I10 Essential (primary) hypertension; I25.10 Atherosclerotic heart disease of native coronary artery without angina pectoris; I73.9 Peripheral vascular disease, unspecified
CPT/HCPCS: 36415; 80053

== ENCOUNTER → 2024-11-07 14:44 | Outpatient (CLI) | payer MEDICARE, BC, SELFPAY ==
[2024-05-28 04:37] VITALS: BMI 33.7
[2024-11-07 17:28] LABS: Magnesium 2.1 mg/dL (1.6-2.3)
[2024-11-07 17:58] LABS: Thyroid Stimulating Hormone 1.67 uIU/mL (0.47-4.68)
== END ==
PROVIDERS: Family Provider Family Medicine; PCP Family Medicine; Referring Provider Internal Medicine Cardiovascular Disease; Visit Provider Internal Medicine Cardiovascular Disease
DX: I10 Essential (primary) hypertension (principal); I47.29 Other ventricular tachycardia; I49.3 Ventricular premature depolarization
CPT/HCPCS: 36415; 83735; 84443